=== PATIENT | female | born 1990 | race Caucasian/White ===

== ENCOUNTER 2017-10-03 12:09 | Emergency (ER) | payer BC ==
[2017-10-03 13:09] LABS: Absolute Lymphocytes (CBC) 1.9 K/uL (0.7-4.9); Absolute Monocytes 0.4 K/uL (0.1-1.3); Absolute Neutrophil 3.2 K/uL (1.8-8.0); Basophils % 1.1 % (0-1.3); Eosinophils % 2.3 % (0-4.4); Hematocrit 33.4 % (36.0-45.0); Lymphocytes % 34.4 % (15.3-44.8); MCH 33.3 pg (27.0-35.0); MCV 100.1 fL (80-100); MPV 8.2 fL (7.6-11.3); Monocytes % 6.4 % (3.3-12.3); RBC Red Blood Cell Count 3.34 M/uL (3.86-4.86)
[2017-10-03 13:32] LABS: ALT/SGPT 16 U/L (12-78); AST/SGOT 10 U/L (15-37); Albumin 3.5 g/dL (3.4-5.0); Alkaline Phosphatase 52 U/L (45-117); BUN Blood Urea Nitrogen 19 mg/dL (7-18); Bicarbonate 29 mmol/L (21-32); Bilirubin Direct < 0.1 mg/dL (0-0.2); Bilirubin Total 0.2 mg/dL (0.2-1.0); Glucose Level 83 mg/dL (74-106); Magnesium 2.1 mg/dL (1.8-2.4); Potassium 4.1 mmol/L (3.5-5.1); Protein, Total 6.7 g/dL (6.4-8.2); Sodium Level 140 mmol/L (136-145)
[2017-10-03 13:42] LABS: Urine Blood 2+ (NEG); Urine Glucose NEGATIVE (NEG); Urine Protein NEGATIVE (NEG); Urine pH 7.5 (5.0-7.0)
--- NOTE | 2017-10-03 14:19 | RAD REPORT ---
EXAM DESCRIPTION: Kathy Single View10/03/2017 1:07 pm CLINICAL HISTORY: Chest pain COMPARISON: March FINDINGS: The lungs appear clear of acute infiltrate. The heart is normal size IMPRESSION: No acute abnormalities displayed
--- NOTE | 2017-10-03 14:21 | EDPHYS ---
Physician Documentation [facility] Name: Leesa Stone Age: 27 yrs Sex: Female : 1990 Arrival Date: 10/03/2017 Time: 12:12 Bed 6 Private MD: Rojas Rivera T ED Physician Que Paredes HPI: 10/03 12:43 This 27 yrs old Female presents to ER via Wheelchair with complaints of Chest ps1 Pain, Numbness Of Arm. 12:43 The patient or guardian reports chest pain that is located primarily in the substernal ps1 area, anterior chest wall, left. The pain radiates to the left arm. Associated signs and symptoms: Pertinent negatives: diaphoresis, recent travel, shortness of breath. worse with food and drinking. Additionally worse with deep breaths and palpation. Hx of breast augmentation and cholecystectomy. 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 - Social history:: Smoking status: Patient/guardian denies using tobacco. - Ebola Screening: : Patient negative for fever greater than or equal to 101.5 degrees Fahrenheit, and additional compatible Ebola Virus Disease symptoms Patient denies exposure to infectious person Patient denies travel to an Ebola-affected area in the 21 days before illness onset No symptoms or risks identified at this time. ROS: 12:43 Constitutional: Negative for fever, chills, and weight loss, Eyes: Negative for injury, ps1 pain, redness, and discharge, Respiratory: Negative for shortness of breath, cough, wheezing, and pleuritic chest pain, Abdomen/GI: Negative for abdominal pain, nausea, vomiting, diarrhea, and constipation, MS/Extremity: Negative for injury and deformity, Skin: Negative for injury, rash, and discoloration, Neuro: Negative for headache, weakness, numbness, tingling, and seizure. 12:43 Cardiovascular: Positive for chest pain, with cough, with movement, of the left arm and chest. Exam: 12:43 Constitutional: This is a well developed, well nourished patient who is awake, alert, ps1 and in no acute distress. Head/Face: Normocephalic, atraumatic. Eyes: Pupils equal round and reactive to light, extra-ocular motions intact. Lids and lashes normal. Conjunctiva and sclera are non-icteric and not injected. Respiratory: Lungs have equal breath sounds bilaterally, clear to auscultation and percussion. No rales, rhonchi or wheezes noted. No increased work of breathing, no retractions or nasal flaring. Abdomen/GI: Soft, non-tender, with normal bowel sounds. No distension or tympany. No guarding or rebound. No evidence of tenderness throughout. Back: No spinal tenderness. No costovertebral tenderness. Full range of motion. Skin: Warm, dry with normal turgor. Normal color with no rashes, no lesions, and no evidence of cellulitis. MS/ Extremity: Pulses equal, no cyanosis. Neurovascular intact. Full, normal range of motion. Neuro: Awake and alert, GCS 15, oriented to person, place, time, and situation. Cranial nerves II-XII grossly intact. Sensory grossly intact. Psych: Awake, alert, with orientation to person, place and time. Behavior, mood, and affect are within normal limits. 12:43 Chest/axilla: Inspection: normal, Palpation: is normal, Axilla: are normal, Breasts: post surgical scar and implants. Vital Signs: 12:36 BP 102 / 61; Pulse 68; Resp 12; Temp 97.8; Pulse Ox 99% on R/A; Weight 54.43 kg; Height ch 5 ft. 1 in. (154.94 cm); Pain 7/10; 12:52 BP 96 / 54; Pulse 62; Resp 14; Pulse Ox 99% on R/A; Pain 7/10; ch 14:29 BP 96 / 52; Pulse 54; Resp 12; Temp 97.8; Pulse Ox 99% on R/A; Pain 5/10; ch 12:36 Body Mass Index 22.67 (54.43 kg, 154.94 cm) MDM: 13:05 Patient medically screened. ps1 14:22 Data reviewed: vital signs, nurses notes, lab test result(s), EKG, radiologic studies, ps1 and as a result, I will discharge patient, administer steroids, medrol, prescribe pain medication, anaprox. Counseling: I had a detailed discussion with the patient and/or guardian regarding: the historical points, exam findings, and any diagnostic results supporting the discharge/admit diagnosis, lab results, radiology results, the need for outpatient follow up, with PCP and cardiology referral if symptoms do not resolve. Special discussion: Based on the patient's history, exam, and Dx evaluation, there is no indication for emergent intervention or inpatient Tx. It is understood by the patient/guardian that if the Sx's persist or worsen they need to return immediately for re-evaluation. 10/03 12:53 Order name: CBC with Diff; Complete Time: 13:14 ps1 10/03 12:53 Order name: LFT's; Complete Time: 13:45 ps1 10/03 12:53 Order name: Magnesium; Complete Time: 13:45 ps1 10/03 12:53 Order name: Troponin (emerg Dept Use Only); Complete Time: 13:45 ps1 10/03 12:53 Order name: CMP; Complete Time: 13:45 ps1 10/03 12:53 Order name: Urine Test (obtain specimen); Complete Time: 13:05 ps1 10/03 12:53 Order name: XRAY Chest (1 view); Complete Time: 14:20 ps1 10/03 12:53 Order name: EKG; Complete Time: 12:53 ps1 10/03 12:53 Order name: Cardiac monitoring; Complete Time: 13:05 ps1 10/03 12:53 Order name: EKG - Nurse/Tech; Complete Time: 13:05 ps1 10/03 12:53 Order name: IV Saline Lock; Complete Time: 13:05 ps1 10/03 13:05 Order name: Urine Dipstick--Ancillary (enter results); Complete Time: 13:45 ag 10/03 13:05 Order name: Urine --Ancillary (enter results); Complete Time: 13:45 ag 10/03 12:53 Order name: Labs collected and sent; Complete Time: 13:05 ps1 10/03 12:53 Order name: O2 Per Protocol; Complete Time: 13:05 ps1 10/03 12:53 Order name: O2 Sat Monitoring; Complete Time: 13:05 ps1 10/03 12:53 Order name: Urine Dipstick-Ancillary (obtain specimen); Complete Time: 13:05 ps1 EC:22 Rate is 61 beats/min. Rhythm is regular. QRS [place] is Normal. TN interval is normal. QRS ps1 interval is normal. QT interval is normal. No Q waves. T waves are Normal. No ST changes noted. Clinical impression: Normal ECG. Interpreted by me. Administered Medications: No medications were administered Disposition: 10/03/17 14:21 Discharged to Home. Impression: Chest pain. - Condition is Stable. - Discharge Instructions: Costochondritis. - Prescriptions for Anaprox DS 550 mg Oral Tablet - take 1 tablet by ORAL route every 12 hours As needed; 20 tablet. Medrol (Valerio) 4 mg Oral Tablets, Dose Pack - take 1 tablet by ORAL route as directed - follow package instructions; 1 packet. - Medication Reconciliation Form, Thank You Letter, Antibiotic Education, Prescription Opioid Use form. - Follow up: Rojas Rivera MD; When: As needed; Reason: Recheck today's complaints, Continuance of care, Re-evaluation by your physician. Follow up: Emergency Department; When: As needed; Reason: Fever > 102 F, Trouble breathing, Worsening of condition. - Problem is new. - Symptoms have improved. Signatures: Dispatcher [employer] [facility] Imani Almendarez, RN RN Que Paredes MD MD ps1 Corrections: (The following items were deleted from the chart) 12:54 12:53 BASIC METABOLIC PANEL+C.LAB.BRZ ordered. [facility] 14:30 14:21 10/03/2017 14:21 Discharged to Home. Impression: Chest pain. Condition is Stable. ch Forms are Medication Reconciliation Form, Thank You Letter, Antibiotic Education, Prescription Opioid Use. Follow up: Rojas Rivera; When: As needed; Reason: Recheck today's complaints, Continuance of care, Re-evaluation by your physician. Follow up: Emergency Department; When: As needed; Reason: Fever > 102 F, Trouble breathing, Worsening of condition. Problem is new. Symptoms have improved. ps1
--- NOTE | 2017-10-03 14:21 | ER ---
Nurse's Notes [facility] Name: Leesa Stone Age: 27 yrs Sex: Female : 1990 Arrival Date: 10/03/2017 Time: 12:12 Bed 6 Private MD: Rojas Rivera T Diagnosis: Chest pain Presentation: 10/03 12:32 Presenting complaint: Patient states: chest pain started last night, today is radiating ch down L arm, into shoulder, numbness and tingling in L arm. states the pain feels like pressure around her heart, like a bubble, worse with eating and drinking. reports diarrhea x2 days. Transition of care: patient was not received from another setting of care. Onset of symptoms was October 02, 2017 at 20:00. Risk Assessment: Do you want to hurt yourself or someone else? Patient reports no desire to harm self or others. Initial Sepsis Screen: Does the patient meet any 2 criteria? No. Patient's initial sepsis screen is negative. Does the patient have a suspected source of infection? No. Patient's initial sepsis screen is negative. Care prior to arrival: None. 12:32 Method Of Arrival: Wheelchair 12:32 Acuity: JAVIER 3 ch Triage Assessment: 12:36 General: Appears in no apparent distress. comfortable, Behavior is calm, cooperative, ch appropriate for age. Pain: Complains of pain in left clavicle, anterior aspect of left upper chest, left lateral anterior chest, left breast, anterior aspect of left shoulder, left bicep, left antecubital area, dorsal aspect of left forearm and posterior aspect of left shoulder Pain currently is 7 out of 10 on a pain scale. Cardiovascular: Heart tones S1 S2 present Capillary refill < 3 seconds in bilateral fingers toes Clubbing of nail beds is absent Patient's skin is warm and dry. Pulses are all present. Edema is absent. Rhythm is sinus rhythm. Respiratory: Airway is patent Trachea midline Respiratory effort is even, unlabored, Respiratory pattern is regular, Breath sounds are clear bilaterally. Derm: Skin is intact, Skin is pink, warm \T\ dry. 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 - Social history:: Smoking status: Patient/guardian denies using tobacco. - Ebola Screening: : Patient negative for fever greater than or equal to 101.5 degrees Fahrenheit, and additional compatible Ebola Virus Disease symptoms Patient denies exposure to infectious person Patient denies travel to an Ebola-affected area in the 21 days before illness onset No symptoms or risks identified at this time. Screenin:39 Abuse screen: Denies threats or abuse. Denies injuries from another. Nutritional ch screening: No deficits noted. Tuberculosis screening: No symptoms or risk factors identified. Fall Risk None identified. Assessment: 12:39 Reassessment: Patient appears in no apparent distress at this time. Patient and/or ch family updated on plan of care and expected duration. Pain level reassessed. Patient is alert, oriented x 3, equal unlabored respirations, skin warm/dry/pink. 13:04 Pain: Pain radiates to left arm Pain began suddenly. ch 14:29 Reassessment: Patient appears in no apparent distress at this time. Patient and/or ch family updated on plan of care and expected duration. Pain level reassessed. Patient is alert, oriented x 3, equal unlabored respirations, skin warm/dry/pink. Patient states feeling better. Patient states symptoms have improved. Vital Signs: 12:36 BP 102 / 61; Pulse 68; Resp 12; Temp 97.8; Pulse Ox 99% on R/A; Weight 54.43 kg; Height 5 ft. 1 in. (154.94 cm); Pain 7/10; 12:52 BP 96 / 54; Pulse 62; Resp 14; Pulse Ox 99% on R/A; Pain 7/10; ch 14:29 BP 96 / 52; Pulse 54; Resp 12; Temp 97.8; Pulse Ox 99% on R/A; Pain 5/10; ch 12:36 Body Mass Index 22.67 (54.43 kg, 154.94 cm) ED Course: 12:12 Patient arrived in ED. mr 12:12 Rojas Rivera MD is Private Physician. mr 12:22 Imani Almendarez, RN is Primary Nurse. ch 12:32 EKG done, by costume technician. reviewed by Que Paredes MD. at1 12:34 Triage completed. ch 12:36 Arm band placed on left wrist. Patient placed in an exam room, on a stretcher, on site monitor, on pulse oximetry. 12:38 Que Paredes MD is Attending Physician. ps1 12:39 No apparent distress. Resting quietly. ch 12:39 human resources operations coordinator chest exam with physician. Patient maintains SpO2 saturation greater than 95% ch on room air. 12:39 Patient has correct armband on for positive identification. Placed in gown. Bed in low ch position. Call light in reach. Side rails up X 1. Adult w/ patient. personnel monitor on. Pulse ox on. NIBP on. Warm blanket given. 12:52 Inserted saline lock: 18 gauge in right antecubital area, using aseptic technique. ch Blood collected. 13:06 X-ray completed. Portable x-ray completed in exam room. jr1 13:07 XRAY Chest (1 view) In Process Unspecified. EDMS 14:20 Rojas Rivera MD is Referral Physician. ps1 14:29 IV discontinued, intact, bleeding controlled, No redness/swelling at site. Pressure ch dressing applied. Administered Medications: No medications were administered Outcome: 14:21 Discharge ordered by MD. ps1 14:29 Discharged to home ambulatory, with family. ch 14:29 Condition: improved 14:29 Discharge instructions given to patient, family, Instructed on discharge instructions, follow up and referral plans. no drinking with medication, medication usage, Demonstrated understanding of instructions, follow-up care, medications, Prescriptions given X 2. 14:30 Patient left the ED. Signatures: Dispatcher [employer] [facility] Imani Almendarez, LEVI RN Rosa Allen mr Bashir, Andreea jr1 Cris adam, sane rn EKG Tat1 Que Paredes MD MD ps1
--- NOTE | 2017-10-03 22:13 | EKG ---
Test Date: 2017-10-03 Test Time: 12:22:45 Machine Edge Bander: SUJATA MEASUREMENT RESULTS: Intervals: Rate: 61 OK: 144 QRSD: 86 QT: 380 QTc: 382 [place]: P: 34 OK: 144 QRS: 27 T: 47 INTERPRETIVE STATEMENTS: Normal sinus rhythm Normal ECG Compared to ECG 10/25/2016 15:02:54 No significant changes Electronically Signed On 10-03-17 22:12:57 CDT by Andriy Muñiz
== END 2017-10-03 14:30 | disposition home or self-care (01) ==
LOC: ER 12:09
DX: R07.9 Chest pain, unspecified (principal); F41.9 Anxiety disorder, unspecified; Z88.5 Allergy status to narcotic agent; Z98.82 Breast implant status
CPT/HCPCS: 36415; 71045; 80053; 80076; 81003; 81025; 83735; 84484; 85025; 93005; 99285

== ENCOUNTER 2018-12-21 11:52 | Emergency (ER) | payer BC ==
--- OUTSIDE RECORDS SUMMARY | 2018-12-21 12:07 | XMS REPORT | Clinical Summary ---
:1990 Author Organization [facility] Address [address] [place] [address] Care Team Providers Name Role Phone Asked, No Pcp Primary Care Provider Unavailable Allergies Active Allergy Reactions Severity Noted Date Comments Hydrocodone GI Intolerance 02/10/2018 Nausea/ vomiting Medications Medication Sig Dispensed Refills Start Date End Date Status dextroamphetamine-amph Take 20 mg by 0 Active etamine (ADDERALL) 20 mouth daily. mg tablet ALPRAZolam (XANAX) 1 TK 1 T PO TID 0 01/17/2018 Active MG tablet QUEtiapine (SEROquel) TK 1 T PO HS 1 12/12/2017 Active 300 MG tablet ondansetron ODT Take 1 tablet 10 tablet 0 02/10/2018 03/12/2018 (ZOFRAN ODT) 4 MG (4 mg total) by disintegrating tablet mouth every 6 (six) hours as needed for nausea or vomiting for up to 30 days. amoxicillin-pot Take 10 mL by 140 mL 0 02/10/2018 02/17/2018 clavulanate mouth 2 (two) (AUGMENTIN) 400-57 times a day for mg/5 mL suspension 7 days. acetaminophen-codeine Take 15 mL by 900 mL 0 02/10/2018 02/17/2018 (CAPITAL WITH CODEINE) mouth every 4 120-12 mg/5 mL (four) hours as suspension needed for moderate pain for up to 7 days. Active Problems Problem Noted Date Chronic tonsillitis 02/10/2018 Encounters Date Type Specialty Care Team Description 02/10/2018 Anesthesia Event Plastic Surgery Darinel Clay MD George, Danielle Therese, ZACHARY 02/10/2018 Surgery Plastic Surgery Brannon Monae MD TONSILLECTOMY 02/10/2018 Hospital Encounter Plastic Surgery Brannon Monae MD Chronic tonsillitis after 12/20/2017 Social History Tobacco Use Types Packs/Day Years Used Date Never Smoker Smokeless Tobacco: Never Used Alcohol Use Drinks/Week oz/Week Comments No Sex Assigned at Date Recorded Not on file Job Start Date Occupation Industry Not on file Not on file Not on file Travel History Travel Start Travel End No recent travel history available. 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 Pulse 58 02/10/2018 3:59 PM [employer]IMMING DEPARTMENT BLOCKER Temperature 36.6 C (97.8 F) 02/10/2018 3:59 PM [employer]IMMING DEPARTMENT BLOCKER Respiratory Rate 18 02/10/2018 3:59 PM [employer]IMMING DEPARTMENT BLOCKER Oxygen Saturation 98% 02/10/2018 3:59 PM TRIMMING DEPARTMENT BLOCKER Inhaled Oxygen Concentration - - Weight 57.6 kg (127 lb 1 oz) 02/10/2018 12:03 PM [employer]IMMING DEPARTMENT BLOCKER Height 154.9 cm (5' 1") 02/10/2018 12:03 PM TRIMMING DEPARTMENT BLOCKER Body Mass Index 24.01 02/10/2018 12:03 PM TRIMMING DEPARTMENT BLOCKER Plan of Treatment Not on file Procedures Procedure Name Priority Date/Time Associated Comments Diagnosis SURGICAL PATHOLOGY Routine 02/10/2018 3:27 Results for this REQUEST PM TRIMMING DEPARTMENT BLOCKER procedure are in the results section. MA AN ELECTIVE Routine 02/10/2018 1:38 ENDOTRACHEAL AIRWAY PM TRIMMING DEPARTMENT BLOCKER Procedure Note - Kamille Duarte, ZACHARY - 02/10/2018 1:38 PM TRIMMING DEPARTMENT BLOCKER Airway Date/Time: 02/10/2018 1:23 PM Performed by: KAMILLE DUARTE Authorized by: DARINEL CLAY Location: OR Urgency: Elective Difficult Airway: No Preoxygenated with 100% O2: Yes C-spine Precautions Maintained Throughout: No Mask Ventilation: Difficult mask Final Airway Type: Endotracheal airway Final Endotracheal Airway: ETT and reinforced tube Cuffed: Yes Technique Used: Direct laryngoscopy Devices/Methods Used in Placement: Intubating stylet Insertion Site: Oral Blade Type: Ewing Laryngoscope Blade/Videolaryngoscope Blade Size: 2 ETT Size (mm): 6.0 Cuff at minimum occlusion pressure: Yes Measured from: Teeth ETT to Teeth (cm): 20 Placement Verified by: CO2 detection and direct visualization Laryngoscopic view: Grade I - full view of glottis Rapid Sequence Induction (RSI): No Modified RSI: No Number of Attempts at Approach: 1 Lips and teeth unchanged, DL clear, suction ready, easy mask, easy grade 1 view TONSILLECTOMY 02/10/2018 1:13 PM TRIMMING DEPARTMENT BLOCKER Chronic tonsillitis after 12/20/2017 Results Surgical pathology request (02/10/2018 3:27 PM TRIMMING DEPARTMENT BLOCKER) [facility] DEPARTMENT OF PATHOLOGY AND GENOMIC MEDICINE Surgical pathology See link below [facility] DEPARTMENT OF report for PDF Lab PATHOLOGY AND Report GENOMIC MEDICINE Result status This is Final [facility] DEPARTMENT OF Report for PATHOLOGY AND [id number] GENOMIC MEDICINE Specimen Performing Organization Address City/State/[facility] DEPARTMENT OF PATHOLOGY AND [address] [place] [address] GENOMIC MEDICINE after 12/20/2017 ([place]) [place] [address] Advance Directives For more information, please contact: [phone] Type Date Recorded Patient Electronic Calibration Technician Explanation Advance Directives, Living Will and Medical Power of Dealer Sales Manager
--- OUTSIDE RECORDS SUMMARY | 2018-12-21 12:07 | XMS REPORT ---
:1990 [facility] Address [address] [place] [address] [address] Care Team Providers Name Role Phone DR JAIDEN LOMAX Unavailable Unavailable Problems This patient has no known problems. Allergies, Adverse Reactions, Alerts This patient has no known allergies or adverse reactions. Medications This patient has no known medications. Encounters Start End Encounter Admission Attending Care Care Encounter Date/Time Date/Time Type Type Clinicians Facility Department ID 2018-01-24 2018-01-24 Outpatient [facility] [id number] 00:00:00 00:00:00 JAIDEN
--- OUTSIDE RECORDS SUMMARY | 2018-12-21 12:07 | XMS REPORT ---
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
--- OUTSIDE RECORDS SUMMARY | 2018-12-21 12:07 | XMS REPORT ---
:1990 Author Organization [employer] Care Team Providers Name Role Phone Zev Mcdonough Provider Role Unavailable Allergies, Adverse Reactions, Alerts Substance Reaction Event Type codeine nausea and vomiting Drug Allergy Problems Problem Type Condition Code Onset Dates Condition Status Problem Localized swelling, mass and lump, R22.32 Active left upper limb Problem Pain in left elbow M25.522 Active Assessment Pain in left elbow M25.522 Active Assessment Localized swelling, mass and lump, R22.32 Active left upper limb Medications Medication Code Code Instructions Start End Date Status Dosage System Date Alprazolam [facility] 46360499525 1 MG Oral Active (Schedule IV Drug) Amphetamine-Dex [facility] 61028988870 20 MG Oral Active (Schedule troamphetamine II Drug) Quetiapine [facility] 52341131188 200 MG Oral Active not defined Fumarate Results No Known Results Summary Purpose [employer] Submission
--- OUTSIDE RECORDS SUMMARY | 2018-12-21 12:07 | XMS REPORT ---
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
--- NOTE | 2018-12-21 12:47 | RAD REPORT ---
EXAM DESCRIPTION: RAD - Chest Single View - 12/21/2018 12:39 pm CLINICAL HISTORY: Left-sided chest pain COMPARISON: October 2017 TECHNIQUE: AP portable chest image was obtained 1219 hours . FINDINGS: Lungs are clear. Heart and vasculature are normal. No measurable pleural effusion and no p neumothorax. No acute bony abnormality seen. No acute aortic findings suspected. IMPRESSION: No acute cardiopulmonary process.
[2018-12-21] MEDS ORDERED: FENTANYL CITR 100 MCG/2 ML ONE (13:10)
[2018-12-21] MEDS ORDERED: ONDANSETRON 4 MG/2 ML VIAL ONE (13:10)
[2018-12-21 13:15] LABS: Absolute Lymphocytes (CBC) 1.7 K/uL (0.7-4.9); Basophils % 1.2 % (0-1.3); Hematocrit 31.2 % (36.0-45.0); Lymphocytes % 32.5 % (15.3-44.8); MPV 7.8 fL (7.6-11.3); RBC Red Blood Cell Count 3.29 M/uL (3.86-4.86)
[2018-12-21 13:22] LABS: Protime INR 0.96
[2018-12-21 13:40] LABS: ALT/SGPT 15 U/L (12-78); AST/SGOT 13 U/L (15-37); Albumin 3.8 g/dL (3.4-5.0); Alkaline Phosphatase 44 U/L (45-117); BUN Blood Urea Nitrogen 13 mg/dL (7-18); Bicarbonate 26 mmol/L (21-32); Bilirubin Direct < 0.1 mg/dL (0-0.2); Bilirubin Total 0.2 mg/dL (0.2-1.0); Glucose Level 87 mg/dL (74-106); NT PRO-BNP 51 pg/mL (<125); Potassium 4.2 mmol/L (3.5-5.1); Protein, Total 7.3 g/dL (6.4-8.2); Sodium Level 142 mmol/L (136-145); Troponin (Emerg Dept Use Only) < 0.02 ng/mL (0.0-0.045)
[2018-12-21 13:44] LABS: Urine Blood 1+ (NEG); Urine Glucose NEGATIVE (NEG); Urine Protein NEGATIVE (NEG); Urine Specific Gravity 1.025 (1.005-1.030)
--- NOTE | 2018-12-21 13:57 | ER ---
Nurse's Notes [facility] Name: Leesa Stone Age: 28 yrs Sex: Female : 1990 Arrival Date: 12/21/2018 Time: 11:55 Bed 13 Private MD: Rojas Rivera T Diagnosis: Chest pain, unspecified Presentation: 12/21 12:06 Presenting complaint: Patient states: Left sided chest pain that radiates to the left aj1 arm for the past 30 minutes. States that when the episode started she suddenly felt sweaty and dizzy. Denies shortness of breath. Transition of care: patient was not received from another setting of care. Onset of symptoms was December 21, 2018. Risk Assessment: Do you want to hurt yourself or someone else? Patient reports no desire to harm self or others. Initial Sepsis Screen: Does the patient meet any 2 criteria? No. Patient's initial sepsis screen is negative. Does the patient have a suspected source of infection? No. Patient's initial sepsis screen is negative. Care prior to arrival: None. 12:06 Method Of Arrival: Ambulatory aj 12:06 Acuity: JAVIER 3 aj1 Triage Assessment: 12:09 General: Appears uncomfortable, Behavior is calm, cooperative, appropriate for age. aj1 Pain: Complains of pain in left breast Pain radiates to left arm Pain currently is 8 out of 10 on a pain scale. Cardiovascular: Reports chest pain. 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 - Social history:: Smoking status: Patient/guardian denies using tobacco. - Ebola Screening: : Patient denies travel to an Ebola-affected area in the 21 days before illness onset. Screenin:22 Abuse screen: Denies threats or abuse. Denies injuries from another. Nutritional aj1 screening: No deficits noted. Tuberculosis screening: No symptoms or risk factors identified. 14:42 Fall Risk None identified. aj1 Assessment: 12:22 General: Appears in no apparent distress. uncomfortable, Behavior is cooperative, aj1 anxious. Pain: Complains of pain in left breast Pain radiates to left arm Pain currently is 8 out of 10 on a pain scale. Pain began 30 min ago. Neuro: Level of Consciousness is awake, alert, obeys commands, Oriented to person, place, time, situation. Cardiovascular: Reports chest pain, diaphoresis, lightheadedness, Heart tones S1 S2 present. Cardiovascular: Rhythm is sinus rhythm. Respiratory: Airway is patent Respiratory effort is even, unlabored, Respiratory pattern is regular, symmetrical, Breath sounds are clear bilaterally. GI: No signs and/or symptoms were reported involving the gastrointestinal system. : No signs and/or symptoms were reported regarding the genitourinary system. EENT: No signs and/or symptoms were reported regarding the EENT system. Derm: Skin is pale. Musculoskeletal: No signs and/or symptoms reported regarding the musculoskeletal system. Circulation, motion, and sensation intact. 13:01 Reassessment: Patient appears in no apparent distress at this time. No changes from aj1 previously documented assessment. Patient and/or family updated on plan of care and expected duration. Pain level reassessed. Patient is alert, oriented x 3, equal unlabored respirations, skin warm/dry/pink. 14:00 Reassessment: Patient appears in no apparent distress at this time. No changes from aj1 previously documented assessment. Patient and/or family updated on plan of care and expected duration. Pain level reassessed. Patient is alert, oriented x 3, equal unlabored respirations, skin warm/dry/pink. Vital Signs: 12:09 BP 116 / 83; Pulse 87; Resp 18; Temp 97.8; Pulse Ox 100% on R/A; Weight 61.23 kg (R); aj1 Height 5 ft. 1 in. (154.94 cm) (R); Pain 8/10; 13:01 BP 118 / 66; Pulse 67; Resp 16; Pulse Ox 100% on R/A; aj1 14:00 BP 105 / 71; Pulse 64; Resp 18; Pulse Ox 99% on R/A; aj1 12:09 Body Mass Index 25.51 (61.23 kg, 154.94 cm) aj1 ED Course: 11:55 Patient arrived in ED. am2 11:55 Rojas Rivera MD is Private Physician. am2 11:58 Joe Solorzano [facility] jr8 11:58 Terrell Fowler MD is Attending Physician. jr8 12:07 Triage completed. aj1 12:09 Arm band placed on Patient placed in an exam room. aj1 12:22 Colleen Khan RN is Primary Nurse. aj1 12:22 Patient has correct armband on for positive identification. ekg monitor tech on. Pulse aj1 ox on. NIBP on. 12:22 No provider procedures requiring assistance completed. Patient maintains SpO2 aj1 saturation greater than 95% on room air. 12:40 EKG done, by technical director. reviewed by Joe OJEDA. at1 13:00 Inserted saline lock: 20 gauge in right antecubital area, using aseptic technique. aj1 13:03 Urine collected: clean catch specimen, cloudy. mb4 13:56 Rojas Rivera MD is Referral Physician. jr8 14:35 IV discontinued, intact, bleeding controlled, No redness/swelling at site. Pressure aj1 dressing applied. Administered Medications: 13:12 Drug: fentaNYL (PF) 25 mcg Route: IVP; Site: right antecubital; aj1 14:42 Follow up: Response: No adverse reaction; RASS: Alert and Calm (0) aj1 13:12 Drug: Zofran 4 mg Route: IVP; Site: right antecubital; aj1 14:43 Follow up: Response: No adverse reaction aj1 Outcome: 13:56 Discharge ordered by . jr8 14:42 Discharged to home ambulatory. aj1 14:42 Condition: good 14:42 Discharge instructions given to patient, Instructed on discharge instructions, follow up and referral plans. Demonstrated understanding of instructions, follow-up care. 14:43 Patient left the ED. aj1 Signatures: Colleen Khan RN RN aj1 Joe Solorzano PA PA jr8 Cris Menchaca, dough scaler and mixer EKG Tat1 Cris Angela am2 Sally Suarez mb4
--- NOTE | 2018-12-21 13:58 | EDPHYS ---
Physician Documentation [facility] Name: Leesa Stone Age: 28 yrs Sex: Female : 1990 Arrival Date: 12/21/2018 Time: 11:55 Bed 13 Private MD: Rojas Rivera T ED Physician Terrell Fowler HPI: 12/21 12:38 This 28 yrs old Female presents to ER via Ambulatory with complaints of Chest jr8 Pain > 30 y/o. 12:38 The patient or guardian reports chest pain that is located primarily in the Left jr8 breast/left lateral anterior chest area. The pain radiates to the left arm, the left shoulder. Associated signs and symptoms: Pertinent positives: diaphoresis, nausea, Pertinent negatives: lightheadedness, near syncope, palpitations, shortness of breath, syncope. The chest pain is described as dull. Duration: The patient or guardian reports a single episode, that is still ongoing, but improving. Modifying factors: The symptoms are alleviated by nothing. the symptoms are aggravated by palpation of area. Severity of pain: At its worst the pain was mild in the emergency department the pain has improved. The patient has not experienced similar symptoms in the past. Pt states she was sitting on the cough and got a pain in her chest along with some associated sweating. Reports a history of anxiety but states that this episode feels different. . 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 - Social history:: Smoking status: Patient/guardian denies using tobacco. - Ebola Screening: : Patient denies travel to an Ebola-affected area in the 21 days before illness onset. ROS: 12:38 Constitutional: Negative for fever, chills, and weight loss, Eyes: Negative for injury, jr8 pain, redness, and discharge, ENT: Negative for injury, pain, and discharge, Neck: Negative for injury, pain, and swelling, Respiratory: Negative for shortness of breath, cough, wheezing, and pleuritic chest pain, Abdomen/GI: Negative for abdominal pain, nausea, vomiting, diarrhea, and constipation, Back: Negative for injury and pain, MS/Extremity: Negative for injury and deformity, Skin: Negative for injury, rash, and discoloration, Neuro: Negative for headache, weakness, numbness, tingling, and seizure. 12:38 Cardiovascular: Positive for chest pain, of the chest and left breast, Negative for edema, orthopnea, palpitations, paroxysmal nocturnal dyspnea. Exam: 12:38 Constitutional: This is a well developed, well nourished patient who is awake, alert, jr8 and in no acute distress. Head/Face: Normocephalic, atraumatic. Eyes: Pupils equal round and reactive to light, extra-ocular motions intact. Lids and lashes normal. Conjunctiva and sclera are non-icteric and not injected. Cornea within normal limits. Periorbital areas with no swelling, redness, or edema. ENT: Nares patent. No nasal discharge, no septal abnormalities noted. Tympanic membranes are normal and external auditory canals are clear. Oropharynx with no redness, swelling, or masses, exudates, or evidence of obstruction, uvula midline. Mucous membranes moist. Neck: Trachea midline, no thyromegaly or masses palpated, and no cervical lymphadenopathy. Supple, full range of motion without nuchal rigidity, or vertebral point tenderness. No Meningismus. Chest/axilla: Normal chest wall appearance and motion. Nontender with no deformity. No lesions are appreciated. Cardiovascular: Regular rate and rhythm with a normal S1 and S2. No gallops, murmurs, or rubs. Normal PMI, no JVD. No pulse deficits. Respiratory: Lungs have equal breath sounds bilaterally, clear to auscultation and percussion. No rales, rhonchi or wheezes noted. No increased work of breathing, no retractions or nasal flaring. Abdomen/GI: Soft, non-tender, with normal bowel sounds. No distension or tympany. No guarding or rebound. No evidence of tenderness throughout. Skin: Warm, dry with normal turgor. Normal color with no rashes, no lesions, and no evidence of cellulitis. MS/ Extremity: Pulses equal, no cyanosis. Neurovascular intact. Full, normal range of motion. Neuro: Awake and alert, GCS 15, oriented to person, place, time, and situation. Cranial nerves II-XII grossly intact. Motor strength 5/5 in all extremities. Sensory grossly intact. Cerebellar exam normal. Normal gait. 12:38 Cardiovascular: Rate: normal, Pulses: Pulses are 3+ in right radial artery and left radial artery. Heart sounds: normal, normal S1and S2, Edema: is not appreciated, JVD: is not appreciated. 12:38 Neuro: appears anxious. Vital Signs: 12:09 BP 116 / 83; Pulse 87; Resp 18; Temp 97.8; Pulse Ox 100% on R/A; Weight 61.23 kg (R); aj1 Height 5 ft. 1 in. (154.94 cm) (R); Pain 8/10; 13:01 BP 118 / 66; Pulse 67; Resp 16; Pulse Ox 100% on R/A; aj1 14:00 BP 105 / 71; Pulse 64; Resp 18; Pulse Ox 99% on R/A; aj1 12:09 Body Mass Index 25.51 (61.23 kg, 154.94 cm) [facility] MDM: 11:58 Patient medically screened. 8 13:55 HEART Score: History: Moderately Suspicious (1), ECG: Normal (0), Age: < or = 45 years [facility] (0), Risk Factors: No Risk Factors Known (0), Troponin: < or = 1 x Normal Limit (0). Data reviewed: vital signs, nurses notes, lab test result(s), EKG, radiologic studies, plain films. Data interpreted: Pulse oximetry: on room air is 100 %. Interpretation: normal. Counseling: I had a detailed discussion with the patient and/or guardian regarding: the historical points, exam findings, and any diagnostic results supporting the discharge/admit diagnosis, lab results, radiology results, the need for outpatient follow up, a family practitioner, to return to the emergency department if symptoms worsen or persist or if there are any questions or concerns that arise at home. 12/21 12:05 Order name: Basic Metabolic Panel [facility] 12/21 12:05 Order name: CBC with Diff [facility] 12/21 12:05 Order name: LFT's [facility] 12/21 12:05 Order name: Magnesium [facility] 12/21 12:05 Order name: NT PRO-BNP [facility] 12/21 12:05 Order name: PT-INR [facility] 12/21 12:05 Order name: Troponin (emerg Dept Use Only) [facility] 12/21 13:04 Order name: Urine Dipstick--Ancillary (enter results) 12/21 13:04 Order name: Urine --Ancillary (enter results) 12/21 13:25 Order name: Protime (+INR); Complete Time: 13:27 EDMS 12/21 13:31 Order name: CBC with Automated Diff; Complete Time: 13:38 EDMA 12/21 13:43 Order name: Basic Metabolic Panel; Complete Time: 13:54 EDMA 12/21 13:43 Order name: Liver (Hepatic) Function; Complete Time: 13:54 EDMS 12/21 13:43 Order name: Troponin (Emerg Dept Use Only); Complete Time: 13:54 [facility] 12/21 12:05 Order name: XRAY Chest (1 view) [facility] 12/21 12:05 Order name: EKG; Complete Time: 12:08 [facility] 12/21 12:05 Order name: Cardiac monitoring; Complete Time: 12:25 [facility] 12/21 12:05 Order name: EKG - Nurse/Tech; Complete Time: 12:25 [facility] 12/21 12:05 Order name: IV Saline Lock; Complete Time: 13:12 [facility] 12/21 12:05 Order name: Labs collected and sent; Complete Time: 13:12 [facility] 12/21 12:05 Order name: O2 Per Protocol; Complete Time: 12:25 [facility] 12/21 12:05 Order name: O2 Sat Monitoring; Complete Time: 12:25 [facility] 12/21 12:05 Order name: Urine Test (obtain specimen); Complete Time: 12:58 [facility] 12/21 12:05 Order name: Urine Dipstick-Ancillary (obtain specimen); Complete Time: 12:58 [facility] 12/21 13:43 Order name: NT PRO-BNP; Complete Time: 13:54 EDMS 12/21 13:43 Order name: Magnesium; Complete Time: 13:54 [facility] 12/21 13:48 Order name: Urine --Ancillary; Complete Time: 13:54 EDMS 12/21 13:48 Order name: Urine Dipstick-Ancillary; Complete Time: 13:54 EDMS Administered Medications: 13:12 Drug: fentaNYL (PF) 25 mcg Route: IVP; Site: right antecubital; aj 14:42 Follow up: Response: No adverse reaction; RASS: Alert and Calm (0) [facility] 13:12 Drug: Zofran 4 mg Route: IVP; Site: right antecubital; aj 14:43 Follow up: Response: No adverse reaction aj1 Disposition: 12/22 07:57 Co-signature as Attending Physician, Terrell Fowler MD I agree with the assessment and kdr plan of care. Disposition: 12/21/18 13:56 Discharged to Home. Impression: Chest pain, unspecified. - Condition is Stable. - Discharge Instructions: Nonspecific Chest Pain, Chest Wall Pain. - Medication Reconciliation Form, Thank You Letter, Antibiotic Education, Prescription Opioid Use form. - Follow up: Rojas Rivera MD; When: 2 - 3 days; Reason: Recheck today's complaints, Continuance of care, Re-evaluation by your physician. - Problem is new. - Symptoms have improved. Signatures: Dispatcher [employer] EDMA Colleen Khan RN RN aj1 Terrell Fowler MD MD [facility] [address] Joe Solorzano PA PA jr8 Corrections: (The following items were deleted from the chart) 12/21 14:43 13:56 12/21/2018 13:56 Discharged to Home. Impression: Chest pain, unspecified. aj1 Condition is Stable. Forms are Medication Reconciliation Form, Thank You Letter, Antibiotic Education, Prescription Opioid Use. Follow up: Rojas Rivera; When: 2 - 3 days; Reason: Recheck today's complaints, Continuance of care, Re-evaluation by your physician. Problem is new. Symptoms have improved. jr8
[2018-12-21 16:20] VITALS: TEMP 97.8
[2018-12-21 16:24] VITALS: BP 105/71; O2SAT 99
--- NOTE | 2018-12-22 10:34 | EKG ---
Test Date: 2018-12-21 Test Time: 12:02:28 Classroom Paraprofessional: SUJATA MEASUREMENT RESULTS: Intervals: Rate: 86 RI: 140 QRSD: 84 QT: 358 QTc: 428 [place]: P: 60 RI: 140 QRS: 41 T: 73 INTERPRETIVE STATEMENTS: Normal sinus rhythm Normal ECG Compared to ECG 10/03/2017 12:22:45 No significant changes Electronically Signed On 12-22-18 10:31:48 CDT by Zane Watson
== END 2018-12-21 14:43 | disposition home or self-care (01) ==
LOC: ER 11:52
DX: R07.9 Chest pain, unspecified (principal); Z88.6 Allergy status to analgesic agent; F90.9 Attention-deficit hyperactivity disorder, unspecified type
CPT/HCPCS: 93005; 85025; 80048; 36415; 83735; 81025; 85610; 80076; 81003; 84484; 83880; 71045; 96375; 96374; 99285; J3010; J2405

== ENCOUNTER 2019-10-12 15:56 | Emergency (ER) | payer BC ==
--- OUTSIDE RECORDS SUMMARY | 2019-10-12 15:58 | XMS REPORT | Continuity of Care Document ---
:1990 Author Organization [facility] t Address [address] [place] [address] Care Team Providers Name Role Phone Asked, Pcp Primary Care Physician Unavailable DR DAMI Attending Clinician Unavailable DR DAMI Admitting Clinician Unavailable Problems Condition Condition Condition Status Onset Resolution Last Treating Co mments Source Name Details Category Date Date Treatment Clinician Date Chronic Chronic Disease Active 2017-04 Humphrey tonsilliti tonsilliti 04-12 Vt thodi s s 00:00: st 00 Localized Localized Diagnosis Active [facility] swelling, swelling, Luke s - mass and mass and Memori a lump, left lump, left l upper limb upper limb Ou tpati ent Clinics Pain in Pain in Diagnosis Active [facility] left elbow [facility] 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 non-drinker of alcohol (finding) Smoking Status Start Date Stop Date Source Never smoker Humphrey Methodis t Medications Ordered Filled Start Stop Current Ordering Indication Dosage Frequency Signature Comments Components Source Medication Medication Date Date Medication? Clinician (SIG) Name Name dextroamphe 2017-04 Yes 20mg QD Take 20 mg Gamez tamine-amph -09 by mouth Meth manuel etamine 16:35: daily. st (ADDERALL) 00 20 mg tablet ALPRAZolam 2017-04 Yes TK 1 T PO [place] (XANAX) 1 0-16 TID Methodi MG tablet 00:00: st 00 QUEtiapine Yes TK 1 T PO [place] (SEROquel) 9-10 HS Methodi 300 MG 00:00: st tablet 00 Alprazolam Alprazolam Yes Zev (Schedule [facility] Amphetamine Amphetamine Yes Zev (Schedule [facility] -Dextroamph -Dextroamph [facility] II Drug) [facility] - etamine etamine [facility] Quetiapine Quetiapine Yes Zev not [facility] Fumarate Fumarate [facility] defined Lucy kes - [facility] Procedures This patient has no known procedures. Encounters Start End Encounter Admission Attending Care Care Encounter Source Date/Time Date/Time Type Type Clinicians Facility Department ID 2018-01-24 2018-01-24 Outpatient Efren LOMAX [facility] [id number] [facility] 00:00:00 00:00:00 [facility] 2017-11-16 2017-11-16 Outpatient Irena Santoro [id number] [facility] 16:35:00 16:35:00 t [facility] Clinics 2017-11-15 2017-11-15 Outpatient Irena Santoro [id number] [facility] 08:30:00 08:30:00 t [facility] 2017-11-02 2017-11-02 Outpatient Irena Santoro [id number] 09:30:00 09:30:00 t [facility] Results This patient has no known results.
--- OUTSIDE RECORDS SUMMARY | 2019-10-12 15:58 | XMS REPORT | Clinical Summary ---
:1990 Author Organization [facility] Address [address] [place] [address] Care Team Providers Name Role Phone Asked, No Pcp Primary Care Provider Unavailable Allergies Active Allergy Reactions Severity Noted Date Comments Hydrocodone GI Intolerance 02/10/2018 Nausea/ vomit ing Medications Medication Sig Dispensed Refills Start Date End Date Status dextroamphetamine-amphe Take 20 mg by 0 Active tamine (ADDERALL) 20 mg mouth daily. tablet ALPRAZolam (XANAX) 1 MG TK 1 T PO TID 0 01/17/2018 Active tablet QUEtiapine (SEROquel) TK 1 T PO HS 1 12/12/2017 Active 300 MG tablet Active Problems Problem Noted Date Chronic tonsillitis 02/10/2018 Social History Tobacco Use Types Packs/Day Years Used Date Never Smoker Smokeless Tobacco: Never Used Alcohol Use Drinks/Week oz/Week Comments No Sex Assigned at Date Recorded Not on file Job Start Date Occupation Industry Not on file Not on file Not on file Travel History Travel Start Travel End No recent travel history available. 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
[2019-10-12] MEDS ORDERED: KETOROLAC 30 MG/ML INJ ONE (16:59)
[2019-10-12 17:19] LABS: Urine Blood 2+ (NEG); Urine Glucose NEGATIVE (NEG); Urine Protein NEGATIVE (NEG); Urine Specific Gravity 1.025 (1.005-1.030); Urine pH 6.5 (5.0-7.0)
--- NOTE | 2019-10-12 17:34 | RAD REPORT ---
EXAM DESCRIPTION: CT - Stone Protocol - 10/12/2019 5:03 pm CLINICAL HISTORY: Abdominal pain. COMPARISON: Pelvic ultrasound October 12, 2019 TECHNIQUE: Computed axial tomography of the abdomen pelvis was obtained without oral or IV contrast. Lack of IV and oral contrast limits evaluation of solid organs, bowel, and vessels. Coronal reformat tiffanie images were obtained and reviewed. All CT scans are performed using dose optimization technique as appropriate and may include automated exposure control or mA/KV adjustment according to patient size. FINDINGS: A renal calculus is not seen. An ureteral calculus is not noted. A bladder calculus is not present. Small left renal cyst The liver, spleen, pancreas and adrenals appear grossly normal There is no evidence of diverticulitis. The appendix appears normal 5.5 centimeter cystic mass is present within the posterior pelvis to the right of midline. No signifi cant free fluid Postsurgical changes involve the stomach IMPRESSION: Negative for a genitourinary calculus A 5.5 centimeter cystic mass within the posterior pelvis to the right of midline probably an ovarian cyst. A followup ultrasound in a couple months recommended for re-evaluation
--- NOTE | 2019-10-12 17:42 | EDPHYS ---
Physician Documentation [facility] Name: Leesa Stone Age: 29 yrs Sex: Female : 1990 Arrival Date: 10/12/2019 Time: 15:58 Bed 8 Private MD: Rojas Rivera T; Jameel Madera B ED Physician Terrell Fowler HPI: 10/11 16:41 This 29 yrs old Female presents to ER via Ambulatory with complaints of kb Vaginal Bleeding, Pelvic Pain. 16:41 The patient presents with vaginal bleeding that is moderate. Onset: The kb symptoms/episode began/occurred this morning. Modifying factors: The symptoms are alleviated by nothing, the symptoms are aggravated by nothing. Associated signs and symptoms: Pertinent positives: vaginal bleeding, Pertinent negatives: constipation, cramping, diarrhea, dyspareunia, dysuria, fever, hematuria, nausea, urinary frequency, vaginal bleeding, vaginal discharge. Severity of symptoms: At their worst the symptoms were moderate, in the emergency department the symptoms are unchanged. The patient has not experienced similar symptoms in the past. The patient has been recently seen by a physician:. 16:42 Pt reports she started having pelvic pain on Tuesday. Saw Dr madera and he felt a mass kb on exam so he ordered an US. Had US done today, but pain has increased and now she is having vaginal bleedings. 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 - Social history:: Smoking status: unknown. ROS: 16:38 Constitutional: Negative for fever, chills, and weight loss, Cardiovascular: Negative kb for chest pain, palpitations, and edema, Respiratory: Negative for shortness of breath, cough, wheezing, and pleuritic chest pain, Back: Negative for injury and pain, MS/Extremity: Negative for injury and deformity, Skin: Negative for injury, rash, and discoloration, Neuro: Negative for headache, weakness, numbness, tingling, and seizure. 16:38 Abdomen/GI: Positive for abdominal pain, Negative for nausea, vomiting, and diarrhea. 16:38 : Positive for vaginal bleeding. Exam: 16:40 Constitutional: This is a well developed, well nourished patient who is awake, alert, kb and in no acute distress. Head/Face: Normocephalic, atraumatic. Chest/axilla: Normal chest wall appearance and motion. Nontender with no deformity. No lesions are appreciated. Cardiovascular: Regular rate and rhythm with a normal S1 and S2. No gallops, murmurs, or rubs. Normal PMI, no JVD. No pulse deficits. Respiratory: Lungs have equal breath sounds bilaterally, clear to auscultation and percussion. No rales, rhonchi or wheezes noted. No increased work of breathing, no retractions or nasal flaring. Back: No spinal tenderness. No costovertebral tenderness. Full range of motion. Skin: Warm, dry with normal turgor. Normal color with no rashes, no lesions, and no evidence of cellulitis. MS/ Extremity: Pulses equal, no cyanosis. Neurovascular intact. Full, normal range of motion. Neuro: Awake and alert, GCS 15, oriented to person, place, time, and situation. Cranial nerves II-XII grossly intact. Motor strength 5/5 in all extremities. Sensory grossly intact. Cerebellar exam normal. Normal gait. 16:40 Abdomen/GI: Inspection: abdomen appears normal, Bowel sounds: normal, in all quadrants, Palpation: soft, in all quadrants, mild abdominal tenderness, in the right lower quadrant. Vital Signs: 16:02 BP 118 / 82; Pulse 81; Resp 24; Temp 97.7; Pulse Ox 98% ; Weight 69.85 kg; Height 5 ft. sv 1 in. (154.94 cm); 16:02 Body Mass Index 29.10 (69.85 kg, 154.94 cm) sv MDM: 16:08 Patient medically screened. kb 16:38 Data reviewed: vital signs, nurses notes. Data interpreted: Pulse oximetry: on room air kb is 98 %. Interpretation: normal. Counseling: I had a detailed discussion with the patient and/or guardian regarding: the historical points, exam findings, and any diagnostic results supporting the discharge/admit diagnosis, lab results, radiology results, the need for outpatient follow up, an OB/Gyne specialist, to return to the emergency department if symptoms worsen or persist or if there are any questions or concerns that arise at home. 10/11 16:50 Order name: Urine Dipstick--Ancillary (enter results); Complete Time: 17:20 eb 10/11 16:50 Order name: Urine --Ancillary (enter results); Complete Time: 17:20 eb 10/11 16:08 Order name: Urine Dipstick-Ancillary (obtain specimen); Complete Time: 16:42 kb 10/11 16:41 Order name: CT Stone Protocol; Complete Time: 17:38 kb Administered Medications: 16:52 Drug: TORadol 30 mg Route: IM; Site: right deltoid; em 17:50 Follow up: Response: No adverse reaction; Marked relief of symptoms; Pain is unchanged, em physician notified 17:52 Drug: traMADol 50 mg Route: PO; em 17:56 Follow up: Response: Medication administered at discharge. em Disposition: 10/12/19 17:42 Discharged to Home. Impression: Unspecified ovarian cysts. - Condition is Stable. - Discharge Instructions: Ovarian Cyst, [id number]. - Prescriptions for Diclofenac Sodium 75 mg Oral Tablet, Delayed Release (E.C.) - take 1 tablet by ORAL route 2 times per day As needed; 30 tablet. - Medication Reconciliation Form, Thank You Letter, Antibiotic Education, Prescription Opioid Use form. - Follow up: Emergency Department; When: As needed; Reason: Worsening of condition. Follow up: Jameel Madera MD; When: 2 - 3 days; Reason: Recheck today's complaints, Continuance of care, Re-evaluation by your physician. Addendum: 10/15/2019 16:25 Co-signature as Attending Physician, Terrell Fowler MD I agree with the assessment and k dr plan of care. Signatures: Dispatcher [employer] Clarita Wilkerson, R[facility]A [facility]-Regina Felder RN Terrell Daniels MD MD [facility] Xander Michelle RN RN em Abby Houston RN RN Corrections: (The following items were deleted from the chart) 10/11 18:00 17:42 10/12/2019 17:42 Discharged to Home. Impression: Unspecified ovarian cysts. em Condition is Stable. Forms are Medication Reconciliation Form, Thank You Letter, Antibiotic Education, Prescription Opioid Use. Follow up: Emergency Department; When: As needed; Reason: Worsening of condition. Follow up: Jameel Madera; When: 2 - 3 days; Reason: Recheck today's complaints, Continuance of care, Re-evaluation by your physician. kb
--- NOTE | 2019-10-12 17:42 | ER ---
Nurse's Notes [facility] Name: Leesa Stone Age: 29 yrs Sex: Female : 1990 Arrival Date: 10/12/2019 Time: 15:58 Bed 8 Private MD: Rojas Rivera T; Jameel Dos Santos B Diagnosis: Unspecified ovarian cysts Presentation: 10/11 15:59 Chief complaint: Patient states: went to Dr Dos Santos's office on Tue for pain, had an US sv done and she has a mass on her right ovary. Today had another US done and is now having vaginal bleeding and the pain has increased. Coronavirus screen: Proceed with normal triage. Patient denies a cough. Patient denies shortness of breath or difficulty breathing. Patient denies measured and/or subjective temperature greater than 100.4F prior to today's visit. Patient denies travel on a cruise ship or to a country the [facility] currently lists as an affected area. Patient denies contact with known and/or suspected case of COVID-19. Ebola Screen: No symptoms or risks identified at this time. Risk Assessment: Do you want to hurt yourself or someone else? Patient reports no desire to harm self or others. Onset of symptoms was October 10, 2019. 15:59 Method Of Arrival: Ambulatory sv 15:59 Acuity: JAVIER 3 sv 16:02 Initial Sepsis Screen: Does the patient meet any 2 criteria? No. Patient's initial sv sepsis screen is negative. Does the patient have a suspected source of infection? No. Patient's initial sepsis screen is negative. Triage Assessment: 15:59 General: Appears in no apparent distress. uncomfortable, Behavior is cooperative, sv appropriate for age, restless. Pain: Complains of pain in suprapubic area and right lower quadrant Pain began today Is continuous, Noted to be grimacing, guarding, restless, bent over. Neuro: Level of Consciousness is awake, alert, obeys commands, Oriented to person, place, time, situation, Gait is steady. Respiratory: Respiratory effort is even, unlabored. : Reports vaginal bleeding that is bright red. 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 - Social history:: Smoking status: unknown. Screenin:30 Abuse screen: Denies threats or abuse. Nutritional screening: No deficits noted. em Tuberculosis screening: No symptoms or risk factors identified. Fall Risk None identified. Assessment: 16:30 General: Appears in no apparent distress. uncomfortable, Behavior is calm, cooperative, em appropriate for age, Denies fever. Pain: Complains of pain in right lower quadrant Pain currently is 8 out of 10 on a pain scale. Pain began " this morning". Neuro: Level of Consciousness is awake, alert, obeys commands, Oriented to person, place, time, situation, Appropriate for age. Cardiovascular: Capillary refill < 3 seconds Patient's skin is warm and dry. Respiratory: Airway is patent Respiratory effort is even, unlabored, Respiratory pattern is regular, symmetrical, Denies cough, shortness of breath. GI: Abdomen is flat, Patient currently denies nausea, vomiting. : Reports vaginal bleeding that is bright red, Denies burning with urination. Derm: Skin is intact, is healthy with good turgor, Skin is pink, warm \\T\\ dry. Musculoskeletal: Capillary refill < 3 seconds, Range of motion: intact in all extremities. Vital Signs: 16:02 BP 118 / 82; Pulse 81; Resp 24; Temp 97.7; Pulse Ox 98% ; Weight 69.85 kg; Height 5 ft. sv 1 in. (154.94 cm); 16:02 Body Mass Index 29.10 (69.85 kg, 154.94 cm) sv ED Course: 15:58 Patient arrived in ED. as 15:58 Jameel Dos Santos MD is Private Physician. as 15:58 Rojas Rivera MD is Private Physician. as 15:59 Arm band placed on. sv 16:01 Triage completed. sv 16:08 Clarita Carroll FNP-C is [facility]. kb 16:08 Terrell Fowler MD is Attending Physician. kb 16:14 Abby Houston, RN is Primary Nurse. iw 16:30 Patient has correct armband on for positive identification. Placed in gown. Bed in low em position. Call light in reach. 17:03 CT Stone Protocol In Process Unspecified. EDMS 17:41 Jmaeel Dos Santos MD is Referral Physician. kb 17:54 No provider procedures requiring assistance completed. Patient did not have IV access em during this emergency room visit. Administered Medications: 16:52 Drug: TORadol 30 mg Route: IM; Site: right deltoid; em 17:50 Follow up: Response: No adverse reaction; Marked relief of symptoms; Pain is unchanged, em physician notified 17:52 Drug: traMADol 50 mg Route: PO; em 17:56 Follow up: Response: Medication administered at discharge. em Outcome: 17:42 Discharge ordered by MD. kb 17:55 Discharged to home ambulatory. em 17:55 Condition: good 17:55 Discharge instructions given to patient, Instructed on discharge instructions, follow up and referral plans. medication usage, Demonstrated understanding of instructions, follow-up care, medications, Prescriptions given X 1. 18:00 Patient left the ED. em Signatures: Dispatcher [employer] EDMA Clarita Carroll, STUDENT DEVELOPMENT COORDINATOR-C STUDENT DEVELOPMENT COORDINATOR-Regina Felder, LEVI RN Xander Espinosa, RN RN Mikaela Patel Irene, RN RN iw
[2019-10-12] MEDS ORDERED: TRAMADOL HCL 50 MG TAB ONE (17:59)
[2019-10-12 18:42] VITALS: BP 118/82; TEMP 97.7; O2SAT 98
== END 2019-10-12 18:00 | disposition home or self-care (01) ==
LOC: ER 15:56
DX: N83.201 Unspecified ovarian cyst, right side (principal)
CPT/HCPCS: 74176; 76377; 81003; 81025; 96372; 99283

== ENCOUNTER 2019-10-15 11:14 | Emergency (ER) | payer BC ==
[2019-10-15 13:27] LABS: Urine Blood TRACE (NEG); Urine Glucose NEGATIVE (NEG); Urine Protein NEGATIVE (NEG); Urine pH 7.5 (5.0-7.0)
[2019-10-15] MEDS ORDERED: MORPHINE 2 MG/ML SYR ONE (13:28)
[2019-10-15] MEDS ORDERED: NA CHLORIDE 0.9% 1,000 ML ONE (13:28)
[2019-10-15 13:29] LABS: Absolute Lymphocytes (CBC) 2.2 K/uL (0.7-4.9); Basophils % 1.2 % (0-1.3); Hematocrit 31.4 % (36.0-45.0); Lymphocytes % 36.3 % (15.3-44.8); MPV 8.3 fL (7.6-11.3)
[2019-10-15 13:44] LABS: ALT/SGPT 16 U/L (12-78); AST/SGOT 13 U/L (15-37); Albumin 3.7 g/dL (3.4-5.0); Alkaline Phosphatase 42 U/L (45-117); BUN Blood Urea Nitrogen 14 mg/dL (7-18); Bicarbonate 26 mmol/L (21-32); Bilirubin Direct < 0.1 mg/dL (0-0.2); Bilirubin Total 0.2 mg/dL (0.2-1.0); Glucose Level 85 mg/dL (74-106); Lipase 248 U/L (73-393); Potassium 3.8 mmol/L (3.5-5.1); Protein, Total 7.3 g/dL (6.4-8.2); Sodium Level 141 mmol/L (136-145)
--- OUTSIDE RECORDS SUMMARY | 2019-10-15 13:57 | XMS REPORT | Continuity of Care Document ---
:1990 Author Organization [facility] t Address [address] [place] [address] Care Team Providers Name Role Phone Asked, Pcp Primary Care Physician Unavailable DR DAMI Attending Clinician Unavailable DR DAMI Admitting Clinician Unavailable Problems Condition Condition Condition Status Onset Resolution Last Treating Co mments Source Name Details Category Date Date Treatment Clinician Date Chronic Chronic Disease Active 2017-04 [place] tonsilliti tonsilliti 04-12 Ar thodi s s 00:00: st 00 Localized [...] Date Quantity Comments Source Sex Assigned At [facility] ethodist Alcohol intake 2018-02-13 2018[facility]02[facility] non-drinker of alcohol (finding) Smoking Status Start Date Stop Date Source Never smoker [place] Methodis t Medications Ordered Filled Start Stop [...] [facility] IV [facility]) [facility] Amphetamine Amphetamine Yes Zev (Schedule [facility] -Dext[facility]amph -Dextroamph [facility] II Drug) [facility] etamine [facility]amine [facility] Quetiapine Quetiapine Yes Zev not C [facility] Fumarate Fumarate [facility] defined Lucy kes - [facility] Procedures This patient has no known procedures. Encounters Start End Encounter Admission Attending Care Care Encounter Source Date/Time Date/Time Type Type Clinicians Facility Department ID 2018-01-24 2018-01-24 Outpatient Efren LOMAX [facility] [id number] [facility] 00:00:00 00:00:00 [facility] 2017-11-16 2017-11-16 Outpatient Irena Santoro [id number] [facility] [address] 16:35:00 16:35:00 [facility] ent Clinics 2017-11-15 2017-11-15 Outpatient Irena Santoro [id number] [facility] [address] 08:30:00 08:30:00 t [facility] ent [facility] 2017-11-02 2017-11-02 Outpatient Irena Santoro [id number] [facility] [address] 09:30:00 09:30:00 t [facility] ent [facility] Results This patient has no known results.
--- OUTSIDE RECORDS SUMMARY | 2019-10-15 13:57 | XMS REPORT | Clinical Summary ---
:1990 Author Organization [facility] Address [address] [place] [address] Care Team Providers Name Role Phone Asked, [...] Not on file Results Not on fileafter 10/14/2018 Advance Directives For more information, please contact: [phone] Type Date Recorded Patient Analytics Manager Explanati on Advance Directives, Living Will and Medical Power of Box Office Agent
--- NOTE | 2019-10-15 13:58 | RAD REPORT ---
EXAM DESCRIPTION: US - Transvaginal Study Probe - 10/15/2019 1:48 pm CLINICAL HISTORY: right lower abdomen pain Pelvic pain. COMPARISON: Transvaginal Study Probe dated 10/12/2019 FINDINGS: The uterus is normal in size, shape and echotexture. The uterus measures 8.8 x 5.2 x 3.7 c m. The endometrial stripe is thin, normal in size. The right ovary is mildly enlarged. The left ovary appears normal sized. The right ovary measures 5.7 x 5.7 cm. The left ovary measures 2.5 x 2.1 cm. 5 cm right ovarian cyst is unchanged since comparat oliver study. No adnexal masses. Normal Doppler blood flow was demonstrated to both ovaries. No significant pelvic ascites. IMPRESSION: No evidence of ovarian torsion.Stable benign appearing 5 cm right ovarian cyst.
[2019-10-15] MEDS ORDERED: FENTANYL CITR 100 MCG/2 ML ONE ×2 (14:41→15:36)
--- NOTE | 2019-10-15 15:14 | EDPHYS ---
Physician Documentation [facility] Name: Leesa Stone Age: 29 yrs Sex: Female : 1990 Arrival Date: 10/15/2019 Time: 11:18 Bed 28 Private MD: Rojas Rivera T ED Physician Yuri Matthew HPI: 10/14 13:00 This 29 yrs old Female presents to ER via Ambulatory with complaints of cp Abdominal Pain. 13:00 The patient presents with abdominal pain right lower quadrant. cp 13:00 The symptoms do not radiate. Associated signs and symptoms: Pertinent positives: cp vaginal bleeding, Pertinent negatives: anorexia, constipation, diarrhea, dysuria, fever, vomiting. 13:00 Onset: The symptoms/episode began/occurred last week. cp 13:00 The patient has been recently seen by a physician: Dr. Dos Santos with similar presenting cp complaints, an ultrasound was done, The patient has been recently seen at the [facility] Emergency Department, last week, for similar complaints labs were performed, CT scan was performed, was given a prescription for pain medications. Historical: - Allergies: 11:58 HYDROCODONE; ll1 - PMHx: 11:58 ADD/ADHD; Anxiety; insomnia; ll1 - PSHx: 11:58 ; Cholecystectomy; tummy tuck; breast augmentation; ll1 - Immunization history:: Adult Immunizations up to date. - Social history:: Smoking status: Patient denies any tobacco usage or history of. Patient/guardian denies using alcohol, street drugs, tobacco products. ROS: 13:05 Constitutional: Negative for body aches, chills, fever, poor PO intake. cp 13:05 Cardiovascular: Negative for chest pain, palpitations. cp 13:05 Respiratory: Negative for cough, shortness of breath, wheezing. 13:05 Abdomen/GI: Positive for abdominal pain, Negative for vomiting, diarrhea, constipation. 13:05 Back: Negative for radiated pain. 13:05 : Positive for vaginal bleeding, Negative for urinary symptoms, flank pain. 13:05 Neuro: Negative for altered mental status, headache, syncope, weakness. 13:05 All other systems are negative. Exam: 13:15 Constitutional: The patient appears in no acute distress, alert, awake, non-toxic, well cp developed, well nourished, uncomfortable. 13:15 Head/Face: Normocephalic, atraumatic. cp 13:15 Eyes: Periorbital structures: appear normal, Conjunctiva: normal, no exudate, no injection, Sclera: no appreciated abnormality, Lids and lashes: appear normal, bilaterally. 13:15 ENT: External ear(s): are unremarkable, Nose: is normal, Mouth: Lips: moist, Oral mucosa: pink and intact, moist, Posterior pharynx: is normal, airway is patent. 13:15 Chest/axilla: Inspection: normal, Palpation: is normal, no crepitus, no tenderness. 13:15 Cardiovascular: Rate: normal, Rhythm: regular. 13:15 Respiratory: the patient does not display signs of respiratory distress, Respirations: normal, no use of accessory muscles, no retractions, labored breathing, is not present, Breath sounds: are clear throughout, no decreased breath sounds, no stridor, no wheezing. 13:15 Abdomen/GI: Inspection: abdomen appears normal, Bowel sounds: active, all quadrants, Palpation: soft, in all quadrants, moderate abdominal tenderness, in the right lower quadrant, rebound tenderness, is not appreciated, voluntary guarding, is not appreciated, involuntary guarding, is not appreciated. 13:15 Back: pain, is absent, ROM is normal. Vital Signs: 11:56 BP 110 / 67; Pulse 73; Resp 17; Temp 97.3; Pulse Ox 99% ; Pain 10/10; ll1 13:30 BP 106 / 70; Pulse 62; Resp 20; Pulse Ox 100% ; sv 14:35 BP 106 / 72; Pulse 58; Resp 20; Pulse Ox 98% ; sv 15:35 BP 115 / 65; Pulse 60; Resp 18; Pulse Ox 99% ; sv MDM: 12:51 Patient medically screened. cp 14:00 Differential diagnosis: appendicitis, Ectopic , Endometriosis, Ovarian cp Torsion, Pelvic Inflammatory Disease, Pyelonephritis, Tubal Ovarian Abcess, Ureterolithiasis, urinary tract infection. 15:07 Physician consultation: Jameel Dos Santos MD was called at 15:05, was contacted at 15:05, cp regarding consult, patient's condition, and will see patient in office, tomorrow. 15:10 Data reviewed: vital signs, nurses notes, old medical records, labs and radiology cp reports from previous visit lab test result(s), radiologic studies, ultrasound. 15:12 Counseling: I had a detailed discussion with the patient and/or guardian regarding: the cp historical points, exam findings, and any diagnostic results supporting the discharge/admit diagnosis, lab results, radiology results, the need for outpatient follow up, for definitive care, an OB/Gyne specialist, to return to the emergency department if symptoms worsen or persist or if there are any questions or concerns that arise at home. 15:12 Response to treatment: the patient's symptoms have markedly improved after treatment, and as a result, I will discharge patient. ED course: VSS. Pain improved. Reviewed results of CT performed 10-12-2019 that showed negative appendicitis. US today negative for ovarian torsion. Will discharge to home for continued monitoring. 10/14 12:54 Order name: Basic Metabolic Panel; Complete Time: 14:04 10/14 14:04 Interpretation: Normal except: CL 111. 10/14 12:54 Order name: CBC with Diff; Complete Time: 14:04 10/14 14:04 Interpretation: Normal except: RBC 3.30; HGB 10.4; HCT 31.4; RDW 16.9. 10/14 12:54 Order name: Hepatic Function; Complete Time: 14:04 10/14 14:04 Interpretation: Normal except: AST 13; ALK 42; GLOB 3.6; A/G 1.0. 10/14 12:54 Order name: Lipase; Complete Time: 14:04 10/14 13:02 Order name: Urine Dipstick--Ancillary (enter results); Complete Time: 14:04 [facility] 10/14 14:07 Interpretation: Normal except: UBLD TRACE; UPH 7.5. 10/14 13:02 Order name: Urine --Ancillary (enter results); Complete Time: 14:04 [facility] 10/14 12:54 Order name: IV Saline Lock; Complete Time: 13:11 10/14 12:54 Order name: Labs collected and sent; Complete Time: 13:11 10/14 13:12 Order name: US Transvaginal Study (Probe); Complete Time: 14:04 10/14 14:05 Interpretation: Reviewed report. 10/14 12:54 Order name: Urine Dipstick-Ancillary (obtain specimen); Complete Time: 12:59 cp 10/14 12:54 Order name: Urine Test (obtain specimen); Complete Time: 12:59 cp Administered Medications: 13:25 Drug: NS 0.9% 1000 ml Route: IV; Rate: 1 bolus; Site: right antecubital; sv 14:40 Follow up: Response: No adverse reaction; IV Status: Completed infusion; IV Intake: sv 1000ml 13:25 Drug: morphine 2 mg {Note: rass2.} Route: IVP; Site: right antecubital; sv 14:40 Follow up: Response: No adverse reaction sv 14:40 Drug: fentaNYL (PF) 25 mcg Route: IVP; Site: right antecubital; sv 15:40 Follow up: Response: No adverse reaction; No change in condition sv 15:38 Drug: TORadol - Ketorolac 15 mg Route: IVP; Site: right antecubital; sv 15:54 Follow up: Response: No adverse reaction sv 15:40 Drug: fentaNYL (PF) 25 mcg {Note: rass2.} Route: IVP; Site: right antecubital; sv 15:54 Follow up: Response: No adverse reaction; RASS: Restless (+1) sv Point of Care Testing: Urine : 12:59 hCG Reading: Negative; Control Reading: Positive; jp3 Disposition: 16:00 Chart complete. cp 16:20 Co-signature as Attending Physician, Yuri Matthew MD I agree with the assessment and amaury plan of care. Disposition: 10/15/19 15:13 Discharged to Home. Impression: Other ovarian cysts - right. - Condition is Stable. - Discharge Instructions: Ovarian Cyst. - Prescriptions for Naprosyn 500 mg Oral Tablet - take 1 tablet by ORAL route 2 times per day take with food; 30 tablet. Tylenol- Codeine #3 300-30 mg Oral Tablet - take 2 tablets by ORAL route every 6 hours As needed; 20 tablet. - Medication Reconciliation Form, Thank You Letter, Antibiotic Education, Prescription Opioid Use form. - Follow up: Jameel Dos Santos MD; When: Tomorrow; Reason: Recheck today's complaints. - Problem is an ongoing problem. - Symptoms have improved. Signatures: Dispatcher [employer] Regina Jimenez RN RN sv Anderson, Corey, MD MD cha Page, Corey, PA PA cp Lewis Lynsay, RN RN ll1 Corrections: (The following items were deleted from the chart) 15:55 15:13 10/15/2019 15:13 Discharged to Home. Impression: Other ovarian cysts - right. sv Condition is Stable. Forms are Medication Reconciliation Form, Thank You Letter, Antibiotic Education, Prescription Opioid Use. Follow up: Jameel Dos Santos; When: Tomorrow; Reason: Recheck today's complaints. Problem is an ongoing problem. Symptoms have improved. cp
--- NOTE | 2019-10-15 15:14 | ER ---
Nurse's Notes [facility] Name: Leesa Stone Age: 29 yrs Sex: Female : 1990 Arrival Date: 10/15/2019 Time: 11:18 Bed 28 Private MD: Rojas Rivera T Diagnosis: Other ovarian cysts-right Presentation: 10/14 11:56 Chief complaint: Patient states: Lower abd pain continues since visit here last ll1 Tuesday. Saw Dr. Dos Santos today, started having worse pain after visit. Coronavirus screen: Proceed with normal triage. Patient denies a cough. Patient denies shortness of breath or difficulty breathing. Patient denies measured and/or subjective temperature greater than 100.4F prior to today's visit. Patient denies travel on a cruise ship or to a country the [facility] [place] currently [place] as an affected area. Patient denies contact with known and/or suspected case of COVID-19. Ebola Screen: Patient denies travel to an Ebola-affected area in the 21 days before illness onset. Initial Sepsis Screen: Does the patient meet any 2 criteria? No. Patient's initial sepsis screen is negative. Risk Assessment: Do you want to hurt yourself or someone else? Patient reports no desire to harm self or others. Onset of symptoms was October 17, 2019. 11:56 Method Of Arrival: Ambulatory ll1 11:56 Acuity: JAVIER 3 ll1 13:00 Initial Sepsis Screen: Does the patient have a suspected source of infection? No. sv Patient's initial sepsis screen is negative. Historical: - Allergies: 11:58 HYDROCODONE; ll1 - PMHx: 11:58 ADD/ADHD; Anxiety; insomnia; ll1 - PSHx: 11:58 ; Cholecystectomy; tummy tuck; breast augmentation; ll1 - Immunization history:: Adult Immunizations up to date. - Social history:: Smoking status: Patient denies any tobacco usage or history of. Patient/guardian denies using alcohol, street drugs, tobacco products. Screenin:00 Abuse screen: Denies threats or abuse. Denies injuries from another. Nutritional sv screening: No deficits noted. Tuberculosis screening: No symptoms or risk factors identified. Fall Risk None identified. Assessment: 13:20 General: Appears in no apparent distress. uncomfortable, well developed, Behavior is sv cooperative, appropriate for age, restless. Pain: Complains of pain in suprapubic area, right lower quadrant and left lower quadrant Pain currently is 10 out of 10 on a pain scale. Noted to be grimacing, guarding, moaning, Pt reports that the pain never got better when she left here. Reports that today after Dr Dos Santos did a manual examination on her that her pain intensified and the office told her to come to the ER to be evaluated. Neuro: Level of Consciousness is awake, alert, obeys commands, Oriented to person, place, time, situation, Moves all extremities. Full function Gait is steady. Respiratory: Respiratory effort is even, unlabored, Respiratory pattern is regular, symmetrical. GI: Abdomen is flat. Derm: Skin is pink, warm \T\ dry. 13:25 Reassessment: US at the bedside. sv 14:40 Reassessment: Patient appears in no apparent distress at this time. No changes from sv previously documented assessment. Patient and/or family updated on plan of care and expected duration. Pain level reassessed. Patient is alert, oriented x 3, equal unlabored respirations, skin warm/dry/pink. 15:49 Reassessment: Patient appears in no apparent distress at this time. No changes from sv previously documented assessment. Patient and/or family updated on plan of care and expected duration. Pain level reassessed. Patient is alert, oriented x 3, equal unlabored respirations, skin warm/dry/pink. Vital Signs: 11:56 BP 110 / 67; Pulse 73; Resp 17; Temp 97.3; Pulse Ox 99% ; Pain 10/10; ll1 13:30 BP 106 / 70; Pulse 62; Resp 20; Pulse Ox 100% ; sv 14:35 BP 106 / 72; Pulse 58; Resp 20; Pulse Ox 98% ; sv 15:35 BP 115 / 65; Pulse 60; Resp 18; Pulse Ox 99% ; sv ED Course: 11:18 Patient arrived in ED. mr 11:19 Rojas Rivera MD is Private Physician. mr 11:57 Triage completed. ll1 11:58 Arm band placed on Patient notified of wait time. ll1 12:43 Yuri Forrester PA is PHCP. cp 12:43 Yuri Matthew MD is Attending Physician. cp 12:46 Doc, Regina, RN is Primary Nurse. sv 12:59 Placed in gown. Bed in low position. Call light in reach. Side rails up X 1. Warm jp3 blanket given. Verbal reassurance given. Pulse ox on. NIBP on. 12:59 Urine collected: clean catch specimen, clear, татьяна colored. jp3 13:10 Initial lab(s) drawn, by me, sent to lab. Inserted saline lock: 20 gauge in right jp3 antecubital area, using aseptic technique. Blood collected. Patient maintains SpO2 saturation greater than 95% on room air. 13:13 Nurse Practitioner and/or Physician Sales Floor Manager to see patient. sv 13:49 US Transvaginal Study (Probe) In Process Unspecified. EDMS 15:12 Jameel Dos Santos MD is Referral Physician. cp 15:49 No provider procedures requiring assistance completed. IV discontinued, intact, sv bleeding controlled, No redness/swelling at site. Pressure dressing applied. Administered Medications: 13:25 Drug: NS 0.9% 1000 ml Route: IV; Rate: 1 bolus; Site: right antecubital; sv 14:40 Follow up: Response: No adverse reaction; IV Status: Completed infusion; IV Intake: sv 1000ml 13:25 Drug: morphine 2 mg {Note: rass2.} Route: IVP; Site: right antecubital; sv 14:40 Follow up: Response: No adverse reaction sv 14:40 Drug: fentaNYL (PF) 25 mcg Route: IVP; Site: right antecubital; sv 15:40 Follow up: Response: No adverse reaction; No change in condition sv 15:38 Drug: TORadol - Ketorolac 15 mg Route: IVP; Site: right antecubital; sv 15:54 Follow up: Response: No adverse reaction sv 15:40 Drug: fentaNYL (PF) 25 mcg {Note: rass2.} Route: IVP; Site: right antecubital; sv 15:54 Follow up: Response: No adverse reaction; RASS: Restless (+1) sv Point of Care Testing: Urine : 12:59 hCG Reading: Negative; Control Reading: Positive; jp3 Intake: 14:40 IV: 1000ml; Total: 1000ml. sv Outcome: 15:13 Discharge ordered by . cp 15:49 Discharged to home ambulatory, with family. sv 15:49 Condition: stable 15:49 Discharge instructions given to patient, Instructed on discharge instructions, follow up and referral plans. no drinking with medication, no driving heavy equipment, medication usage, Demonstrated understanding of instructions, follow-up care, medications, Prescriptions given X 2. 15:55 Patient left the ED. sv Signatures: Dispatcher [employer] Regina Jimenez, LEVI RN sv Dorothy Fontanez mr Mitzy, Yuri, Tab Marshall cp, jp3 Sergio Crandall RN RN ll1
[2019-10-15] MEDS ORDERED: KETOROLAC 30 MG/ML INJ ONE (15:36)
[2019-10-15 16:47] VITALS: TEMP 97.3
[2019-10-15 16:51] VITALS: BP 115/65; O2SAT 99
== END 2019-10-15 15:55 | disposition home or self-care (01) ==
LOC: ER 11:14
DX: N83.201 Unspecified ovarian cyst, right side (principal); Z88.6 Allergy status to analgesic agent
CPT/HCPCS: 96361; 85025; 80048; 36415; 81025; 80076; 81003; 83690; 76830; 96375; 96374; 99284; J3010 ×2; J2270; J7030

== ENCOUNTER 2019-10-18 06:20 | Day surgery (SDC) | payer BC ==
[2019-10-17 16:34] LABS: Urine Appearance CLEAR; Urine Bilirubin NEGATIVE (NEG); Urine Blood NEGATIVE (NEG); Urine Color YELLOW; Urine Glucose NEGATIVE (NEG); Urine Protein NEGATIVE (NEG); Urine Specific Gravity 1.015 (1.005-1.030); Urine Urobilinogen 0.2 mg/dL (0.2-1.0)
[2019-10-17 16:35] LABS: Specific Gravity 1.015 (1.005-1.030); Urine Microscopic Reflex NO UMIC
[2019-10-17 16:35] LABS: Absolute Lymphocytes (CBC) 2.2 K/uL (0.7-4.9); Basophils % 0.7 % (0-1.3); Lymphocytes % 31.3 % (15.3-44.8); MPV 8.2 fL (7.6-11.3); RBC Red Blood Cell Count 3.48 M/uL (3.86-4.86)
--- NOTE | 2019-10-17 17:00 | PREOPHP ---
Date of Admission: 10/18/2019 History Of Present Illness: This is a -koow-kyw female, 5, para 4, AB1 with pelvic mass, severe pelvic pain. The patient has been given options including expectant management. She w ishes to proceed with surgery as she says the pain is unbearable. Infection, blood loss; anesthetic complications; injury to bladder, bowel, ureter; postoperative complications, clots in legs and pneum onia discussed. The patient knows fully well this does not constitute all the problems that could oc cur during the following surgery. Knows that we may have to remove the ovary. We will try to do a c ystectomy but if not possible we will remove the ovary. She has also been signed for an appendectomy . Dr. Goodwin will decide at the time of surgery whether it needs to be removed or not. Family History: Paternal grandfather with hypertension. Maternal grandfather with a stroke. There have been some cancers on the mother's side of the family but nothing pertinent to this situation. Past Medical History: The patient has had anxiety in the past. She had 4 previous sections . She had a tummy tuck, a tubal in 2008. She has been on Xanax and Seroquel in the past but not at this point. Social History: Does not smoke. Physical Examination: HEENT: Clear. Pupils equal, round, and reactive to light and accommodation. Conjunctivae well perf used. No oral, lingual, or buccal lesions. Chest and Lungs: Clear. Heart: Without murmurs, thrills, heaves, or rubs. Breasts: Breasts were not examined. Extremities: Clear without edema, cyanosis, or clubbing. The patient is in significant pain today and we have deferred a pelvic exam. She knows that if her p ain goes away overnight, we will cancel the surgery. Final Diagnosis: Right ovarian mass, cystic. Plan: We will proceed with diagnostic laparoscopy, cystectomy, or oophorectomy, possible appendectom y. TRISTON/MANUELA Voice ID: [id number]
[2019-10-17 17:25] LABS: Protime INR 0.94
--- OUTSIDE RECORDS SUMMARY | 2019-10-18 06:25 | XMS REPORT | Clinical Summary ---
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
--- OUTSIDE RECORDS SUMMARY | 2019-10-18 06:26 | XMS REPORT | Continuity of Care Document ---
:1990 Author Organization [facility] t Address [address] [place] [address] Care Team Providers Name Role Phone Asked, Pcp Primary Care Physician Unavailable DR DAMI Attending Clinician Unavailable DR DAMI Admitting Clinician Unavailable Problems Condition Condition Condition Status Onset Resolution Last Treating Co mments Source Name Details Category Date Date Treatment Clinician Date Chronic Chronic Disease Active 2017-04 [place] tonsilliti tonsilliti 04-12 [place] thodi s s 00:00: st 00 Localized [...] Date Quantity Comments Source Sex Assigned At [facility] ethodist Alcohol intake 2018-02-13 2018-02-13 [facility] non-drinker of alcohol (finding) Smoking Status Start Date Stop Date Source Never smoker [facility] t Medications Ordered Filled Start Stop [...] [facility] IV Drug) [facility] Amphetamine Amphetamine Yes Zev (Schedule [facility] -Dextroamph -Dextroamph [facility] II Drug) [facility] Quetiapine Quetiapine Yes Zev not C HI [facility] Fumarate Fumarate [facility] defined Lucy kes - [facility] Procedures This patient has no known procedures. Encounters Start End Encounter Admission Attending Care Care Encounter Source Date/Time Date/Time Type Type Clinicians Facility Department ID 2018-01-24 2018-01-24 Outpatient Efren [facility] [id number] [facility]:00[facility]00 00[facility]00[facility] 2017-11-16 2017-11-16 Outpatient Irena Santoro [id number] 16:35:00 16:35:00 [facility] 2017-11-15 2017-11-15 Outpatient Irena Santoro [id number] 08:30:00 08:30:00 [facility] 2017-11-02 2017-11-02 Outpatient Irena Santoro [id number] 09:30:00 09:30:00 [facility] ent [facility] Results This patient has no known results.
[2019-10-18] MEDS ORDERED: Ringers Lactate 1,000 ML IV ONE ×2 (06:51→09:36)
[2019-10-18] MEDS ORDERED: LIDOCAINE 1% MPF 5 ML VIAL ONE (07:14)
[2019-10-18] MEDS ORDERED: propofoL 200 MG/20 ML VIAL IV ONE (07:14)
[2019-10-18] MEDS ORDERED: FENTANYL CITR 100 MCG/2 ML ONE ×2 (07:14→08:57)
[2019-10-18] MEDS ORDERED: MIDAZOLAM HCL 2 MG/2 ML INJ ONE (07:14)
[2019-10-18] MEDS ORDERED: ROCURONIUM 50 MG/5 ML VIAL IV ONE (07:14)
[2019-10-18] MEDS ORDERED: BUPIVACAINE 0.5% PF 10 ML VIAL ONE (07:27)
[2019-10-18] MEDS ORDERED: CEFAZOLIN/SWI 2gm 2 GM/20 ML SYR ONE (07:36)
[2019-10-18] MEDS ORDERED: KETOROLAC 30 MG/ML INJ ONE (08:07)
[2019-10-18] MEDS ORDERED: dexAMETHasone 10 MG/ML VIAL ONE (08:07)
[2019-10-18] MEDS ORDERED: GLYCOPYRROLATE 0.2 MG/ML SYR ONE (08:12)
[2019-10-18] MEDS ORDERED: ONDANSETRON 4 MG/2 ML VIAL ONE ×2 (08:12→09:16)
[2019-10-18] MEDS ORDERED: NEOSTIGMINE 1 MG/ML -5 ML ONE (08:12)
[2019-10-18] MEDS: HYDROMORPHONE HCL 1 MG/ML INJ ONE ×4 (09:10→09:40)
[2019-10-18] MEDS ORDERED: MEPERIDINE HCL 25 MG/ML SYR ONE (09:30)
--- NOTE | 2019-10-18 09:43 | OP ---
Surgeon: Jameel Dos Santos MD Preoperative Diagnoses: Right adnexal mass - multicystic ovarian cyst, severe pelvic pain. Full pre operative counseling concerning procedure and possible complications, including infection, blood loss , anesthetic complications, injury to bladder, bowel, ureter, postoperative complications, clots in l egs, and pneumonia. The possibility for ovarian removal if cystectomy was not successful fully discu ssed with the patient. Possible appendectomy as well if the appendix looked abnormal. Description Of Procedure: After adequate general anesthesia, the patient was prepped and draped in u sual sterile manner. A time-out was performed. Trocar was placed in the approximate area of the umb ilicus. This patient had had previous abdominoplasty, but the approximate area was obtained. There was slight bleeding, but fulguration was performed, and with balloon catheter pressure, bleeding stop ped. Three additional trocar sites 5 mm were placed. There was noted to be extensive pelvic adhesio ns. These were lysed with ligature, took sometime. After visualization of the pelvis was obtained, the right ovary was elevated, noted to be multicystic. Attempted cystectomy was performed, but there were too many cysts and loculations and therefore it was decided to remove the ovary. This was done and portion of the tube was removed also as it was involved in extensive adhesions and did not look healthy. After tube and ovary removed, the appendix was visualized and noted to be normal. At this point, no further bleeding was seen in the pelvis. All instruments were removed and incisions were c losed. Blood loss was less than 100 cc. The patient tolerated all procedures well, will be sent to the recovery room in good condition. Final Diagnoses: Severe pelvic pain, diagnostic laparoscopy, lysis of extensive adhesions, right cys tectomy, right oophorectomy, and partial salpingectomy. TRISTON/PARISHL Voice ID: [id number] Report ID: [id number]
--- NOTE | 2019-10-18 09:49 | DS ---
Hospital Course: A 29-year-old female, who underwent diagnostic laparoscopy, lysis of numerous adhes ions, right cystectomy, right oophorectomy, right partial salpingectomy. Estimated blood loss less t weston 100 cc. The patient will be observed for 2 hours or more and then dismissed to return to [facility] in 1 week for followup, to report any temperature elevation of 100 degrees or greater, severe pain , heavy bleeding, or any other type of abnormalities. Final Diagnoses: Severe right pelvic pain, diagnostic laparoscopy, lysis of numerous extensive adhes ions, right cystectomy, right oophorectomy, and right partial salpingectomy. TRISTON/MANUELA Voice ID: [id number] Report ID: [id number]
[2019-10-18] MEDS ORDERED: PROMETHAZINE INJ 25 MG/ML AMP ONE (09:58)
[2019-10-18] MEDS ORDERED: METOCLOPRAMIDE 10 MG/2mL INJ ONE (09:58)
[2019-10-18] MEDS ORDERED: HYDROMORPHONE HCL 1 MG/ML INJ ONE (09:59)
[2019-10-18 10:58] VITALS: O2SAT 100
[2019-10-18] MEDS ORDERED: TRAMADOL HCL 50 MG TAB ONE (11:27)
[2019-10-18 12:03] VITALS: BP 90/45; TEMP 97.1
== END 2019-10-18 11:50 | disposition home or self-care (01) ==
LOC: OR 06:20
PROVIDERS: ATTEND Specialist
PROC: 0UT54ZZ Resection of Right Fallopian Tube, Percutaneous Endoscopic Approach (ICD-10-PCS; 2019-10-18)
PROC: 0DNW4ZZ Release Peritoneum, Percutaneous Endoscopic Approach (ICD-10-PCS; 2019-10-18)
PROC: 0UT04ZZ Resection of Right Ovary, Percutaneous Endoscopic Approach (ICD-10-PCS; principal; 2019-10-18 07:30)
DX: N83.201 Unspecified ovarian cyst, right side (principal); N73.6 Female pelvic peritoneal adhesions (postinfective); Z11.59 Encounter for screening for other viral diseases; Z82.49 Family history of ischemic heart disease and other diseases of the circulatory system; Z82.3 Family history of stroke
CPT/HCPCS: 85025; 36415; 86900; 86850; 81025; 85610; 86901; 88305; 85730; 81003; 58661; 49329; U0002; J2704; J2765; J2550; J2250; J3010 ×2; J1100; J2175; J1170 ×3; J2710; J0690; J7120 ×2; J2405 ×2

== ENCOUNTER 2020-04-08 21:14 | Emergency (ER) | payer BC ==
--- OUTSIDE RECORDS SUMMARY | 2020-04-08 21:17 | XMS REPORT | Clinical Summary ---
:1990 Author Organization [facility] [employer] Address [address] [place] [id number] Care Team Providers Name Role Phone Asked, [...] Problems Problem Noted Date Chronic tonsillitis 02/10/2018 Surgical History Surgery Date Site/Laterality Comments SECTION x4 CHOLECYSTECTOMY GASTRIC BYPASS ABDOMINAL SURGERY tummy tuck BREAST SURGERY andrei breast impla nt TONSILLECTOMY 02/10/2018 Mouth/N/A Procedure: TONSI LLECTOMY; Surgeon: Brannon Monae M D; Location: [address]; Service: EN T; Laterality: N/A; Medical History Medical History Date Comments Anxiety Social History Tobacco Use Types Packs/Day Years Used Date Never Smoker Smokeless Tobacco: Never Used Alcohol Use Drinks/Week oz/Week Comments No Sex Assigned at Date Recorded Not on file Last Filed Vital Signs Not on file Plan of Treatment Not on file Results Not on fileafter 04/08/2019 Advance Directives For more information, please contact: [phone] Type Date Recorded 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
--- OUTSIDE RECORDS SUMMARY | 2020-04-08 21:17 | XMS REPORT | Continuity of Care Document ---
:1990 Author Organization [facility] t Address [address] [place] [address] Care Team Providers Name Role Phone Asked, Pcp Primary Care Physician Unavailable DR DAMI Attending Clinician Unavailable DR DAMI Admitting Clinician Unavailable Problems Condition Condition Condition Status Onset Resolution Last Treating Co mments Source Name Details Category Date Date Treatment Clinician Date Chronic Chronic Disease Active 2017-04 [place] tonsilliti tonsilliti 04-12 Me thodi s s 00:00: st 00 Localized [...] Date Quantity Comments Source Sex Assigned At [facility] ethodi Tobacco use and 2018-02-13 2018-02-13 Never used [facility] ethodist exposure 00:00:00 00:00:00 Alcohol intake 2018-02-13 2018-02-13 [facility] non-drinker of alcohol (finding) Smoking Status Start Date Stop Date Source Never smoker [facility] t Medications Ordered Filled Start Stop Current Ordering Indication Dosage Frequency Signature Comments Components Source Medication Medication Date Date Medication? Clinician (SIG) Name Name dextroamphe 2017-04 Yes 20mg QD Take 20 mg [facility] tamine-amph 04-12 by mouth Meth manuel etamine 16:35: daily. st (ADDERALL) 00 20 mg tablet ALPRAZolam 2017-04 Yes TK 1 T PO [place] (XANAX) 1 0-16 TID Methodi MG tablet 00:00: st 00 QUEtiapine Yes TK 1 T PO [place] (SEROquel) 9-10 HS Methodi 300 MG 00:00: st tablet 00 Alprazolam Alprazolam Yes Zev (Schedule [facility] Amphetamine Amphetamine Yes Zev (Schedule [facility] -Dextroamph -Dextroamph [facility] II Drug) [facility] Quetiapine Quetiapine Yes Zev not C [facility] Fumarate Fumarate [facility] defined Lucy kes - [facility] Procedures This patient has no known procedures. Encounters Start End Encounter Admission Attending Care Care Encounter Source Date/Time Date/Time Type Type Clinicians Facility Department ID 2018-01-24 2018-01-24 Outpatient Efren [place]OMAX [place] [id number] [facility] 00:00:00 00:00:00 [facility] 2017-11-16 2017-11-16 Outpatient Irena Santoro [id number] 16:35:00 16:35:00 t [facility] 2017-11-15 2017-11-15 Outpatient Irena Santoro [id number] 08:30:00 08:30:00 t [facility] 2017-11-02 2017-11-02 Outpatient Irena Santoro [id number] 09:30:00 09:30:00 t [facility] Results This patient has no known results.
[2020-04-08] MEDS ORDERED: NA CHLORIDE 0.9% 1,000 ML ONE (22:03)
[2020-04-08] MEDS ORDERED: ONDANSETRON 4 MG/2 ML VIAL ONE (22:03)
[2020-04-08] MEDS ORDERED: MORPHINE 4 MG/ML SYR ONE (22:03)
[2020-04-08 22:04] LABS: Absolute Lymphocytes (CBC) 2.5 K/uL (0.7-4.9); Basophils % 0.6 % (0-1.3); Hematocrit 31.4 % (36.0-45.0); Lymphocytes % 34.1 % (15.3-44.8); MPV 7.6 fL (7.6-11.3); RBC Red Blood Cell Count 3.27 M/uL (3.86-4.86)
[2020-04-08 22:21] LABS: ALT/SGPT 10 U/L (12-78); AST/SGOT 9 U/L (15-37); Albumin 3.8 g/dL (3.4-5.0); Alkaline Phosphatase 46 U/L (45-117); BUN Blood Urea Nitrogen 13 mg/dL (7-18); Bicarbonate 20 mmol/L (21-32); Bilirubin Direct < 0.1 mg/dL (0-0.2); Bilirubin Total 0.1 mg/dL (0.2-1.0); Glucose Level 82 mg/dL (74-106); Lipase 276 U/L (73-393); Potassium 3.5 mmol/L (3.5-5.1); Protein, Total 7.1 g/dL (6.4-8.2); Sodium Level 143 mmol/L (136-145)
[2020-04-08] MEDS ORDERED: FENTANYL CITR 100 MCG/2 ML ONE (22:44)
[2020-04-08] MEDS ORDERED: PROMETHAZINE INJ 25 MG/ML AMP ONE (23:38)
--- NOTE | 2020-04-08 23:43 | EDPHYS ---
Physician Documentation [facility] Name: Leesa Stone Age: 29 yrs Sex: Female : 1990 Arrival Date: 04/08/2020 Time: 21:20 Bed 6 Private MD: ED Physician Frank Ashford HPI: 04/08 22:03 This 29 yrs old Female presents to ER via Wheelchair with complaints of pm1 abdominal pain. 22:03 The patient presents with abdominal pain in the left lower quadrant. Onset: The pm1 symptoms/episode began/occurred 1 hour prior to arrival. The symptoms do not radiate. Associated signs and symptoms: Pertinent positives: diarrhea, Pertinent negatives: nausea and vomiting, chest pain, dysuria, fever, shortness of breath. The symptoms are described as sharp. Modifying factors: The symptoms are alleviated by nothing, the symptoms are aggravated by movement. Severity of pain: in the emergency department the pain is unchanged. The patient has experienced similar episodes in the past, a few times, today's symptoms are similar, to previous ovarian cysts. The patient has not recently seen a physician. 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 - Social history:: Smoking status: Patient denies any tobacco usage or history of. ROS: 22:03 Constitutional: Negative for fever, chills, and weight loss, Cardiovascular: Negative pm1 for chest pain, palpitations, and edema, Respiratory: Negative for shortness of breath, cough, wheezing, and pleuritic chest pain. 22:03 Back: Negative for injury and pain, : Negative for injury, bleeding, discharge, and swelling, MS/Extremity: Negative for injury and deformity, Skin: Negative for injury, rash, and discoloration, Neuro: Negative for headache, weakness, numbness, tingling, and seizure. 22:03 Abdomen/GI: Positive for abdominal pain, diarrhea, Negative for nausea and vomiting. Exam: 22:03 Back: No spinal tenderness. No costovertebral tenderness. Full range of motion. pm1 Skin: Warm, dry with normal turgor. Normal color with no rashes, no lesions, and no evidence of cellulitis. MS/ Extremity: Pulses equal, no cyanosis. Neurovascular intact. Full, normal range of motion. 22:03 Constitutional: The patient appears in no acute distress, alert, awake, non-diaphoretic, non-toxic, well developed, well hydrated, well groomed, well nourished, uncomfortable. 22:03 Cardiovascular: Rate: tachycardic, Rhythm: regular, Pulses: no pulse deficits are appreciated, Edema: is not appreciated. 22:03 Respiratory: Exam negative for acute changes, respiratory distress, shortness of breath. 22:03 Abdomen/GI: Exam negative for acute changes, Inspection: abdomen appears normal, Palpation: soft, in all quadrants, mild abdominal tenderness, in the left lower quadrant. 22:03 Neuro: Exam negative for acute changes, Orientation: is normal, Mentation: is normal, Motor: is normal, moves all fours. 22:03 Psych: Behavior/mood is cooperative, Affect is animated, Oriented to person, place, time. Vital Signs: 21:30 BP 104 / 64; Pulse 117; Resp 18 S; Temp 99.9(TE); Pulse Ox 99% ; Weight 74.39 kg (R); ca1 Height 5 ft. 1 in. (154.94 cm) (R); Pain 9/10; 22:41 BP 119 / 86; Pulse 98; Resp 18; Pulse Ox 99% ; ea 23:50 BP 111 / 60; Pulse 87; Resp 18; Temp 98.7; Pulse Ox 99% ; ea 21:30 Body Mass Index 30.99 (74.39 kg, 154.94 cm) ca1 MDM: 21:38 Patient medically screened. pm1 23:41 Data reviewed: vital signs. Counseling: I had a detailed discussion with the patient pm1 and/or guardian regarding: the historical points, exam findings, and any diagnostic results supporting the discharge/admit diagnosis, lab results, radiology results, the need for outpatient follow up, for definitive care, an OB/Gyne specialist, to return to the emergency department if symptoms worsen or persist or if there are any questions or concerns that arise at home. 04/08 21:41 Order name: Basic Metabolic Panel; Complete Time: 22:22 pm1 04/08 21:41 Order name: CBC with Diff; Complete Time: 22:06 pm1 04/08 21:40 Order name: Transvaginal Study (probe) pm1 04/08 21:41 Order name: Hepatic Function; Complete Time: 22:22 pm1 04/08 21:41 Order name: Lipase; Complete Time: 22:22 pm1 04/08 21:41 Order name: CT Abd/Pelvis - IV Contrast Only pm1 04/08 21:41 Order name: IV Saline Lock; Complete Time: 21:59 pm1 04/08 21:41 Order name: Labs collected and sent; Complete Time: 21:59 pm1 Administered Medications: 21:55 Drug: Zofran (Ondansetron) 4 mg Route: IVP; Site: right antecubital; ea 22:32 Follow up: Response: No adverse reaction ea 21:59 Drug: NS 0.9% 1000 ml Route: IV; Rate: 1000 ml; Site: right antecubital; ea 23:44 Follow up: Response: No adverse reaction; IV Status: Completed infusion; IV Intake: ea 1000ml :59 Drug: morphine 4 mg {Note: rass 1.} Route: IVP; Site: right antecubital; ea 22:32 Follow up: Response: No adverse reaction; No change in condition ea 22:32 Drug: fentaNYL (PF) 50 mcg Route: IVP; Site: right antecubital; ea 23:06 Follow up: Response: No adverse reaction; Pain is unchanged, physician notified ea 23:06 Drug: fentaNYL (PF) 50 mcg {Note: rass 1.} Route: IVP; Site: right antecubital; ea 23:45 Follow up: Response: No adverse reaction ea 23:26 Drug: Phenergan 12.5 mg Route: IVP; Site: right antecubital; ea 23:45 Follow up: Response: No adverse reaction ea 04/09 00:03 Drug: TORadol - Ketorolac 15 mg Route: IVP; Site: right antecubital; ea 00:03 Follow up: Response: Medication administered at discharge. ea Disposition: 00:59 Co-signature as Attending Physician, Frank Ashford MD. rn Disposition: 04/08/20 23:42 Discharged to Home. Impression: Other ovarian cysts - left. - Condition is Stable. - Discharge Instructions: Ovarian Cyst. - Prescriptions for Naprosyn 500 mg Oral Tablet - take 1 tablet by ORAL route 2 times per day As needed take with food; 30 tablet. Zofran ODT 4 mg Oral tablet,disintegrating - place 1 tablet by TRANSLINGUAL route every 8 hours As needed; 20 tablet. - Medication Reconciliation Form, Thank You Letter, Antibiotic Education, Prescription Opioid Use form. - Follow up: Emergency Department; When: As needed; Reason: Worsening of condition. Follow up: Private Physician; When: 2 - 3 days; Reason: Recheck today's complaints, Continuance of care, Re-evaluation by your physician. - Problem is new. - Symptoms have improved. Signatures: Dispatcher [employer] EDMS Frank Ashford MD MD rn Marinas, Darinel, CARDIOVASCULAR LAB DIRECTOR CARDIOVASCULAR LAB DIRECTOR pm1 Judith Sabillon RN RN ea Acob, Cheryl RN LEVI ca1 Corrections: (The following items were deleted from the chart) 04/08 23:44 23:42 04/08/2020 23:42 Discharged to Home. Impression: Unspecified ovarian cysts. pm1 Condition is Stable. Forms are Medication Reconciliation Form, Thank You Letter, Antibiotic Education, Prescription Opioid Use. Follow up: Emergency Department; When: As needed; Reason: Worsening of condition. Follow up: Private Physician; When: 2 - 3 days; Reason: Recheck today's complaints, Continuance of care, Re-evaluation by your physician. Problem is new. Symptoms have improved. pm1 04/09 00:10 04/08 23:44 04/08/2020 23:42 Discharged to Home. Impression: Other ovarian cysts - ea left. Condition is Stable. Discharge Instructions: Ovarian Cyst. Prescriptions for Naprosyn 500 mg Oral Tablet - take 1 tablet by ORAL route 2 times per day As needed take with food; 30 tablet, Tylenol-Codeine #3 300-30 mg Oral Tablet - take 2 tablets by ORAL route every 6 hours As needed; 20 tablet. and Forms are Medication Reconciliation Form, Thank You Letter, Antibiotic Education, Prescription Opioid Use. Follow up: Emergency Department; When: As needed; Reason: Worsening of condition. Follow up: Private Physician; When: 2 - 3 days; Reason: Recheck today's complaints, Continuance of care, Re-evaluation by your physician. Problem is new. Symptoms have improved. pm1
--- NOTE | 2020-04-08 23:43 | ER ---
Nurse's Notes 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 Denies N/V. ca1 Reports diarrhea. Pt crying in triage. Reports pain with movement and breathing. Coronavirus screen: Client denies travel out of the [place] in the last 14 days. diarrhea. Coronavirus screen: Client presents with at least one sign or symptom that may indicate coronavirus-19. Standard/surgical mask placed on the client. Provider contacted for isolation considerations. Ebola Screen: Patient negative for fever greater than or equal to 101.5 degrees Fahrenheit, and additional compatible Ebola Virus Disease symptoms Patient denies exposure to infectious person. Patient denies travel to an Ebola-affected area in the 21 days before illness onset. No symptoms or risks identified at this time. Initial Sepsis Screen: Does the patient meet any 2 criteria? No. Patient's initial sepsis screen is negative. Does the patient have a suspected source of infection? No. Patient's initial sepsis screen is negative. Risk Assessment: Do you want to hurt yourself or someone else? Patient reports no desire to harm self or others. Onset of symptoms was April 08, 2020. 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 - Social history:: Smoking status: Patient denies any tobacco usage or history of. Screenin:58 Abuse screen: Denies threats or abuse. Nutritional screening: No deficits noted. ea Tuberculosis screening: No symptoms or risk factors identified. Fall Risk IV access (20 points). Assessment: 22:00 General: Appears in no apparent distress. Behavior is appropriate for age, restless. ea Pain: Complains of pain in abdomen. Neuro: Level of Consciousness is awake, alert, obeys commands, Oriented to person, place, time. Respiratory: Airway is patent Respiratory effort is even, unlabored, Respiratory pattern is regular, symmetrical. Derm: Skin is pink, warm \T\ dry. 22:01 Reassessment: Ultrasound at bedside. ea 22:39 Reassessment: Patient and/or family updated on plan of care and expected duration. Pain ea level reassessed. 04/09 00:03 Reassessment: Patient and/or family updated on plan of care and expected duration. Pain ea level reassessed. Patient is alert, oriented x 3, equal unlabored respirations, skin warm/dry/pink. Discharge instruction given to patient, verbalized the understanding of instruction. Pt left ED ambulatory tolerating well. Vital Signs: 04/08 21:30 BP 104 / 64; Pulse 117; Resp 18 S; Temp 99.9(TE); Pulse Ox 99% ; Weight 74.39 kg (R); ca1 Height 5 ft. 1 in. (154.94 cm) (R); Pain 9/10; 22:41 BP 119 / 86; Pulse 98; Resp 18; Pulse Ox 99% ; ea 23:50 BP 111 / 60; Pulse 87; Resp 18; Temp 98.7; Pulse Ox 99% ; ea 21:30 Body Mass Index 30.99 (74.39 kg, 154.94 cm) ca1 ED Course: 21:20 Patient arrived in ED. cf2 21:30 Triage completed. ca1 21:33 Arm band placed on right wrist. ca1 21:34 Darinel Lizarraga NP is PHCP. pm1 21:34 Frank Ashford MD is Attending Physician. pm1 21:44 Judith Sabillon RN is Primary Nurse. ea 21:50 Inserted saline lock: 20 gauge in right antecubital area, using aseptic technique. ea Blood collected. 21:59 Patient has correct armband on for positive identification. Bed in low position. Call ea light in reach. Side rails up X2. NIBP on. 22:17 Transvaginal Study (probe) In Process Unspecified. EDMS 23:03 CT Abd/Pelvis - IV Contrast Only In Process Unspecified. EDMS 23:50 No provider procedures requiring assistance completed. ea 04/09 00:03 IV discontinued, intact, bleeding controlled, No redness/swelling at site. Pressure ea dressing applied. Administered Medications: 04/08 21:55 Drug: Zofran (Ondansetron) 4 mg Route: IVP; Site: right antecubital; ea 22:32 Follow up: Response: No adverse reaction ea 21:59 Drug: NS 0.9% 1000 ml Route: IV; Rate: 1000 ml; Site: right antecubital; ea 23:44 Follow up: Response: No adverse reaction; IV Status: Completed infusion; IV Intake: ea 1000ml 21:59 Drug: morphine 4 mg {Note: rass 1.} Route: IVP; Site: right antecubital; ea 22:32 Follow up: Response: No adverse reaction; No change in condition ea 22:32 Drug: fentaNYL (PF) 50 mcg Route: IVP; Site: right antecubital; ea 23:06 Follow up: Response: No adverse reaction; Pain is unchanged, physician notified ea 23:06 Drug: fentaNYL (PF) 50 mcg {Note: rass 1.} Route: IVP; Site: right antecubital; ea 23:45 Follow up: Response: No adverse reaction ea 23:26 Drug: Phenergan 12.5 mg Route: IVP; Site: right antecubital; ea 23:45 Follow up: Response: No adverse reaction ea 04/09 00:03 Drug: TORadol - Ketorolac 15 mg Route: IVP; Site: right antecubital; ea 00:03 Follow up: Response: Medication administered at discharge. ea Intake: 04/08 23:44 IV: 1000ml; Total: 1000ml. ea Outcome: 23:42 Discharge ordered by . pm1 04/09 00:04 Condition: stable ea Discharge instructions given to patient, family, Instructed on discharge instructions, follow up and referral plans. medication usage, Demonstrated understanding of instructions, follow-up care, medications. 00:06 Discharged to home ambulatory, with family. ea 00:10 Patient left the ED. ea Signatures: Dispatcher [employer] EDMS Darinel Lizarraga NP DESIGN RELEASE ENGINEER pm1 Judith Sabillon RN RN ea Denise Parker, RN RN ca1 Eze, Carolann cf2
[2020-04-09] MEDS ORDERED: KETOROLAC 30 MG/ML INJ ONE (00:11)
[2020-04-09 00:18] VITALS: O2SAT 99
[2020-04-09 00:21] VITALS: BP 111/60; TEMP 98.7
--- NOTE | 2020-04-09 08:26 | RAD REPORT ---
EXAM DESCRIPTION: US - Transvaginal Study Probe - 04/08/2020 10:17 pm CLINICAL HISTORY: LLQ pain, pelvic pain Preliminary findings were provided at the time of the study. COMPARISON: Transvaginal Study Probe dated 10/15/2019 TECHNIQUE: Endovaginal sonography was performed. FINDINGS: Endometrium is 5 mm in thickness with no mass, polyp or focal abnormality seen. Uterine si ze is normal at 8.8 x 3.9 x 4.8 cm. No myometrial mass. No blood or fluid in the cul de sac. Normal size left ovary is seen. Doppler evaluation shows normal blood flow in the left ovarian stroma . A 15 millimeter cyst of the left ovary is identified. No left adnexal mass seen. Right ovary was not identified. Patient detailed history of prior right oophorectomy. No right adnexa l mass identified. IMPRESSION: Unremarkable left ovary and left adnexa. No uterine abnormality. Right ovary is surgically absent.
--- NOTE | 2020-04-09 11:50 | RAD REPORT ---
EXAM DESCRIPTION: CT - Abdomen Pelvis W Contrast - 04/09/2020 6:35 am CLINICAL HISTORY: The patient is 29 years old and is Female; ABD PAIN TECHNIQUE: Axial computed tomography images of the abdomen and pelvis with intravenous contrast. S agittal and coronal reformatted images were created and reviewed. This CT exam was performed using one or more of the following dose reduction techniques: automated exposure control, adjustment of t he mA and/or kV according to patient size, and/or use of iterative reconstruction technique. DLP: 1324 mGy*cm COMPARISON: None. FINDINGS: LUNG BASES: Lung bases are clear. HEART: Visualized heart is normal. ABDOMEN: LIVER: Unremarkable. No mass. GALLBLADDER AND BILE DUCTS: Prior cholecystectomy. No ductal dilatation. PANCREAS: Unremarkable. No mass. No ductal dilation. SPLEEN: Unremarkable. No splenomegaly. ADRENALS: Unremarkable. No mass. KIDNEYS AND URETERS: Left renal cyst measuring 1.7 cm with mural calcification. Additional subcent imeter bilateral renal cysts. No hydronephrosis. STOMACH AND BOWEL: Prior Cristiana-en-Y gastric bypass. No obstruction. No mucosal thickening. PELVIS: APPENDIX: No findings to suggest acute appendicitis. BLADDER: Unremarkable. No mass. REPRODUCTIVE: Multilobular left ovarian cyst measuring 3.5 cm. ABDOMEN and PELVIS: INTRAPERITONEAL SPACE: Unremarkable. No free air. No significant fluid collection. BONES/JOINTS: No acute fracture. No dislocation. SOFT TISSUES: Bilateral breast implants, partially seen. VASCULATURE: Unremarkable. No abdominal aortic aneurysm. LYMPH NODES: Unremarkable. No enlarged lymph nodes. IMPRESSION: 1. No acute abdominal or pelvic abnormality. 2. Multilobular left ovarian cyst measuring 3.5 cm. No follow-up imaging is recommended. Reference: US recommendations based on Radiology 2010 Dec;256(3):943-54; CT/MR recommendations based on J Am Eric Radiol 2013;10:675-681. Electronically signed by: Mario Santana DO 04/08/2020 11:35 PM REGISTERED NURSE SURGICAL SERVICES Due to temporary technical issues with the PACS/Fluency reporting system, reports are being signed by the in house radiologist without review as a courtesy to ensure prompt reporting. The interpreting r adiologist is fully responsible for the content of the report.
== END 2020-04-09 00:10 | disposition home or self-care (01) ==
LOC: ER 21:14
DX: N83.292 Other ovarian cyst, left side (principal); F41.9 Anxiety disorder, unspecified; F90.9 Attention-deficit hyperactivity disorder, unspecified type; Z98.82 Breast implant status
CPT/HCPCS: 96361; 85025; 80048; 36415; 80076; 83690; 74177; 76830; 96375; 96374; 99284; Q9967; J2550; J3010; J7030; J2405

== ENCOUNTER 2020-05-04 20:57 | Emergency (ER) | payer BC ==
--- OUTSIDE RECORDS SUMMARY | 2020-05-04 20:58 | XMS REPORT | Clinical Summary ---
:1990 Author Organization [facility] Address [address] [place] [id number] Care Team Providers Name Role Phone Asked, [...] LLECTOMY; Surgeon: Brannon Monae M D; Location: [address]; Service: EN T; Laterality: N/A; Medical History Medical History Date Comments Anxiety Social History Tobacco Use Types Packs/Day Years Used Date Never Smoker Smokeless Tobacco: Never Used Alcohol Use Drinks/Week oz/Week Comments No Sex Assigned at Date Recorded Not on file Last Filed Vital Signs Not on file Plan of Treatment Not on file Results Not on fileafter 05/04/2019 Advance Directives For more information, please contact: [phone] Type Date Recorded 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
--- OUTSIDE RECORDS SUMMARY | 2020-05-04 20:59 | XMS REPORT | Continuity of Care Document ---
:1990 Author Organization [facility] t Address [address] [place] [address] Care Team Providers Name Role Phone Asked, Pcp Primary Care Physician Unavailable DR DAMI Attending Clinician Unavailable DR DMAI Admitting Clinician Unavailable Problems Condition Condition Condition Status Onset Resolution Last Treating Co mments Source Name Details Category Date Date Treatment Clinician Date Chronic Chronic Disease Active 2017-04 [place] tonsilliti tonsilliti 04-12 Me thodi s s [...] Date Quantity Comments Source Sex Assigned At [facility] ethodi Tobacco use and 2018-02-13 2018-02-13 Never used [facility] ethodist exposure 00:00:00 00:00:00 Alcohol intake 2018-02-13 2018-02-13 [facility] non-drinker of alcohol (finding) Smoking [...] [facility] Amphetamine Amphetamine Yes Zev (Schedule [facility] Quetiapine Quetiapine Yes Zev not [facility] Fumarate Fumarate [facility] defined Lucy kes - [facility] Procedures This patient has no known procedures. Encounters Start End Encounter Admission Attending Care Care Encounter Source Date/Time Date/Time Type Type Clinicians Facility Department ID 2018-01-24 2018-01-24 Outpatient Efren [place] [id number] [facility] 00:00:00 00:00:00 [facility] 2017-11-16 2017-11-16 Outpatient Irena Santoro [id number] [facility] [address] 16:35:[facility] 16:35[facility] 2017-11-15 2017-11-15 Outpatient Irena Santoro [id number] [facility] [address] 08:30:00 08:30:00 [facility] 2017-11-02 2017-11-02 Outpatient Irena Santoro [id number] [facility] 09:30:00 09:30:00 t [facility] Results This patient has no known results.
[2020-05-04 21:37] LABS: Absolute Lymphocytes (CBC) 2.3 K/uL (0.7-4.9); Basophils % 1.1 % (0-1.3); Hematocrit 30.7 % (36.0-45.0); Lymphocytes % 35.2 % (15.3-44.8); MPV 8.2 fL (7.6-11.3); RBC Red Blood Cell Count 3.15 M/uL (3.86-4.86)
[2020-05-04] MEDS ORDERED: ONDANSETRON 4 MG/2 ML VIAL ONE (21:46)
[2020-05-04] MEDS ORDERED: MORPHINE 4 MG/ML SYR ONE (21:46)
[2020-05-04 21:47] LABS: Urine Blood TRACE (NEG); Urine Glucose NEGATIVE (NEG); Urine Protein NEGATIVE (NEG); Urine Specific Gravity 1.025 (1.005-1.030)
[2020-05-04] MEDS ORDERED: NA CHLORIDE 0.9% 1,000 ML ONE (21:47)
[2020-05-04 21:49] LABS: ALT/SGPT 11 U/L (12-78); AST/SGOT 14 U/L (15-37); Albumin 3.7 g/dL (3.4-5.0); Alkaline Phosphatase 46 U/L (45-117); BUN Blood Urea Nitrogen 15 mg/dL (7-18); Bicarbonate 19 mmol/L (21-32); Bilirubin Direct < 0.1 mg/dL (0-0.2); Bilirubin Total 0.1 mg/dL (0.2-1.0); Glucose Level 67 mg/dL (74-106); Lipase 353 U/L (73-393); Potassium 3.7 mmol/L (3.5-5.1); Protein, Total 7.4 g/dL (6.4-8.2); Sodium Level 146 mmol/L (136-145)
[2020-05-04] MEDS ORDERED: FENTANYL CITR 100 MCG/2 ML ONE (22:25)
[2020-05-04] MEDS ORDERED: KETOROLAC 30 MG/ML INJ ONE (23:22)
[2020-05-05] MEDS ORDERED: FAMOTIDINE 20 MG/2 ML VIAL IV ONE (01:09)
--- NOTE | 2020-05-05 02:06 | ER ---
Nurse's Notes [facility] 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 Coronavirus screen: Client denies travel out of the [place] in the last 14 days. At this time, the client does not indicate any symptoms associated with coronavirus-19. Ebola Screen: Patient denies travel to an Ebola-affected area in the 21 days before illness onset. Initial Sepsis Screen: Does the patient meet any 2 criteria? HR > 90 bpm. No. Patient's initial sepsis screen is negative. Does the patient have a suspected source of infection? Yes: Acute abdominal pain. Risk Assessment: Do you want to hurt yourself or someone else? Patient reports no desire to harm self or others. Onset of symptoms was May 04, 2020. 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 - Social history:: Smoking status: Patient denies any tobacco usage or history of. Screenin:09 Abuse screen: Denies threats or abuse. Nutritional screening: No deficits noted. ea Tuberculosis screening: No symptoms or risk factors identified. Fall Risk None identified. Assessment: 21:30 General: Appears in no apparent distress. Behavior is calm, cooperative, appropriate ea for age. Pain: Complains of pain in right lower quadrant. Neuro: Level of Consciousness is awake, alert, obeys commands, Oriented to person, place, time, situation. Respiratory: Airway is patent Respiratory effort is even, unlabored, Respiratory pattern is regular, symmetrical. GI: Abd is soft X 4 quads Abdomen is tender to palpation in right lower quadrant and left lower quadrant. Derm: Skin is pink, warm \T\ dry. 22:50 Reassessment: Patient and/or family updated on plan of care and expected duration. Pain ea level reassessed. Patient is alert, oriented x 3, equal unlabored respirations, skin warm/dry/pink. 23:55 Reassessment: Patient and/or family updated on plan of care and expected duration. Pain ea level reassessed. Patient is alert, oriented x 3, equal unlabored respirations, skin warm/dry/pink. Awaiting on ultrasound. 05/05 02:14 GI: Bowel sounds present X 4 quads. wh Vital Signs: 05/04 21:09 BP 97 / 79; Pulse 109; Resp 18; Temp 98.8; Pulse Ox 96% ; Weight 72.57 kg; Height 5 ft. ll1 1 in. (154.94 cm); Pain 8/10; 05/05 00:00 BP 91 / 50; Pulse 86; Resp 18; Pulse Ox 98% on R/A; ea : BP 115 / 61; Pulse 80; Resp 18; Pulse Ox 98% ; ea 05/04 21:09 Body Mass Index 30.23 (72.57 kg, 154.94 cm) ll1 ED Course: 05/04 20:57 Patient arrived in ED. cf2 21:09 Arm band placed on Patient placed in an exam room, on a stretcher. ll1 21:10 Triage completed. ll1 21:10 Patient has correct armband on for positive identification. Placed in gown. Bed in low ea position. Call light in reach. Side rails up X2. 21:13 Montze Walker PA is PHCP. [facility] 21:13 Merrick Lobo MD is Attending Physician. [facility] 21:13 Judith Sabillon RN is Primary Nurse. ea 21:22 Inserted saline lock: 20 gauge in right antecubital area, using aseptic technique. ea Blood collected. 22:05 CT Abd/Pelvis - IV Contrast Only In Process Unspecified. EDMS 05/05 01:08 US Pelvis Complete In Process Unspecified. EDMS 02:15 No provider procedures requiring assistance completed. IV discontinued, intact, wh bleeding controlled, No redness/swelling at site. Administered Medications: 05/04 21:35 Drug: Zofran (Ondansetron) 4 mg Route: IVP; Site: right antecubital; ea 22:00 Follow up: Response: No adverse reaction 21:37 Drug: morphine 4 mg Route: IVP; Site: right antecubital; ea 22:00 Follow up: Response: No adverse reaction 21:37 Drug: NS 0.9% 1000 ml Route: IV; Rate: 1 bolus; Site: right antecubital; 05/05 02:15 Follow up: Response: No adverse reaction; IV Status: Completed infusion 05/04 22:18 Drug: fentaNYL (PF) 50 mcg {Note: 1.} Route: IVP; Site: right antecubital; 05/05 01:31 Follow up: Response: No adverse reaction 05/04 23:10 Drug: TORadol 30 mg Route: IVP; Site: right antecubital; 05/05 01:31 Follow up: Response: No adverse reaction 01:31 Drug: Pepcid 20 mg Route: IVP; Site: right antecubital; ea 02:16 Follow up: Response: No adverse reaction Outcome: 02:05 Discharge ordered by . mh7 02:15 Discharged to home ambulatory. 02:15 Condition: stable 02:15 Discharge instructions given to patient, Instructed on discharge instructions, follow up and referral plans. no drinking with medication, no driving heavy equipment, medication usage, POC Demonstrated understanding of instructions, follow-up care, medications, POC Prescriptions given X 2. 02:16 Patient left the ED. Signatures: Dispatcher [employer] EDMS Montez Walker PA PA jmm Antunez, Elena, RN RN ea Habalo, Winsy, RN RN Carolann Loo cf2 Sergio Crandall RN RN 1 Merrick Lobo MD MD mh7
--- NOTE | 2020-05-05 02:06 | EDPHYS ---
Physician Documentation [facility] Name: Leesa Stone Age: 29 yrs Sex: Female : 1990 Arrival Date: 05/04/2020 Time: 20:57 Bed 18 Private MD: ED Physician Merrick Lobo HPI: 05/04 21:13 This 29 yrs old Female presents to ER via Ambulatory with complaints of jmm Abdominal Pain, Vomiting. 21:13 The patient presents with abdominal pain. Onset: The symptoms/episode began/occurred jmm gradually, 2 day(s) ago. The symptoms do not radiate. Associated signs and symptoms: Pertinent positives: vomiting, Pertinent negatives: diarrhea, dysuria, fever, vaginal discharge. The symptoms are described as achy, sharp. Modifying factors: The symptoms are alleviated by nothing, the symptoms are aggravated by nothing. The patient has not experienced similar symptoms in the past. Patient states the pain is around her suprapubic region and then radiates to the right lower quadrant. 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 - Social history:: Smoking status: Patient denies any tobacco usage or history of. ROS: 21:13 Constitutional: Negative for fever, chills, and weight loss, Cardiovascular: Negative jmm for chest pain, palpitations, and edema, Respiratory: Negative for shortness of breath, cough, wheezing, and pleuritic chest pain. 21:13 Abdomen/GI: Positive for abdominal pain, nausea and vomiting. 21:13 All other systems are negative. Exam: 21:13 Constitutional: This is a well developed, well nourished patient who is awake, alert, jmm and in no acute distress. Head/Face: atraumatic. Eyes: EOMI, no conjunctival erythema appreciated ENT: Moist Mucus Membranes Neck: Trachea midline, Supple Chest/axilla: Normal chest wall appearance and motion. Cardiovascular: Regular rate and rhythm. No edema appreciated Respiratory: Normal respirations, no respiratory distress appreciated 21:13 Abdomen/GI: Inspection: abdomen appears normal, Bowel sounds: normal, Palpation: soft, moderate abdominal tenderness, in the suprapubic area and right lower quadrant. 21:13 : Pelvic Exam: External exam: is normal, Speculum exam: no bleeding is noted, no cervicitis, bimanual exam reveals no cervical motion tenderness, no adnexa tenderness or masses bilaterally. 21:13 Musculoskeletal/extremity: ROM: intact in all extremities. 21:13 Skin: Appearance: Color: normal in color. 21:13 Neuro: Orientation: is normal, Mentation: is normal, Memory: is normal. 21:13 Psych: Behavior/mood is pleasant, cooperative. Vital Signs: 21:09 BP 97 / 79; Pulse 109; Resp 18; Temp 98.8; Pulse Ox 96% ; Weight 72.57 kg; Height 5 ft. ll1 1 in. (154.94 cm); Pain 8/10; 05/05 00:00 BP 91 / 50; Pulse 86; Resp 18; Pulse Ox 98% on R/A; ea 01: BP 115 / 61; Pulse 80; Resp 18; Pulse Ox 98% ; ea 05/04 21:09 Body Mass Index 30.23 (72.57 kg, 154.94 cm) ll1 MDM: 05/04 21:13 Patient medically screened. [facility] 05/05 00:40 Data reviewed: vital signs, nurses notes. Counseling: I had a detailed discussion with brandon the patient and/or guardian regarding: the historical points, exam findings, and any diagnostic results supporting the discharge/admit diagnosis, lab results, radiology results. Transition of care: After a detail discussion of the patient's case, care is transferred to Merrick Lobo MD. 02:02 Differential diagnosis: Nonspecific abd pain, appendicitis, diverticulitis, viral mh7 gastroenteritis, gastroenteritis. 02:04 Data interpreted: Pulse oximetry: on room air is 98 %. Interpretation: normal. Response mh7 to treatment: the patient's symptoms have markedly improved after treatment. 05/04 21:20 Order name: Basic Metabolic Panel; Complete Time: 21:58 ea 05/04 21:20 Order name: CBC with Diff; Complete Time: 21:58 ea 05/04 21:20 Order name: Hepatic Function; Complete Time: 21:58 ea 05/04 21:20 Order name: Lipase; Complete Time: 21:58 ea 05/04 21:34 Order name: Urine Dipstick--Ancillary (enter results) 05/04 21:34 Order name: Urine --Ancillary (enter results); Complete Time: 21:58 05/04 21:21 Order name: CT Abd/Pelvis - IV Contrast Only ea 05/04 21:34 Order name: Urine Dipstick-Ancillary; Complete Time: 21:58 EDMS 05/05 00:38 Order name: US Pelvis Complete [facility] 05/04 21:20 Order name: IV Saline Lock; Complete Time: 21:21 ea 05/04 21:20 Order name: Labs collected and sent; Complete Time: 21:22 ea Administered Medications: 05/04 21:35 Drug: Zofran (Ondansetron) 4 mg Route: IVP; Site: right antecubital; ea 22:00 Follow up: Response: No adverse reaction 21:37 Drug: morphine 4 mg Route: IVP; Site: right antecubital; ea 22:00 Follow up: Response: No adverse reaction 21:37 Drug: NS 0.9% 1000 ml Route: IV; Rate: 1 bolus; Site: right antecubital; 05/05 02:15 Follow up: Response: No adverse reaction; IV Status: Completed infusion 05/04 22:18 Drug: fentaNYL (PF) 50 mcg {Note: 1.} Route: IVP; Site: right antecubital; 05/05 01:31 Follow up: Response: No adverse reaction 05/04 23:10 Drug: TORadol 30 mg Route: IVP; Site: right antecubital; 05/05 01:31 Follow up: Response: No adverse reaction 01:31 Drug: Pepcid 20 mg Route: IVP; Site: right antecubital; ea 02:16 Follow up: Response: No adverse reaction Disposition: 02:55 Co-signature as Attending Physician, Merrick Lobo MD. mh7 Disposition: 05/05/20 02:05 Discharged to Home. Impression: Lower abdominal pain, unspecified. - Condition is Stable. - Discharge Instructions: Abdominal Pain, Adult. - Prescriptions for Bentyl 20 mg Oral Tablet - take 1 tablet by ORAL route every 6 hours As needed; 20 tablet. Zofran ODT 4 mg Oral tablet,disintegrating - place 1 tablet by TRANSLINGUAL route every 8 hours As needed; 10 tablet. - Medication Reconciliation Form, Thank You Letter, Antibiotic Education, Prescription Opioid Use form. - Follow up: Private Physician; When: 2 - 3 days; Reason: Recheck today's complaints, Continuance of care, Re-evaluation by your physician. - Problem is an acute exacerbation. - Symptoms have improved. - Notes: Please follow up with OBGYN and GI for further evaluation. Return to the ED if symptoms worsen. Signatures: Dispatcher [employer] EDMS Montez Walker PA PA jmm Antunez, Elena, RN RN Federico Garsia RN RN Sergio Marte RN RN [facility] Merrick Lobo MD MD mh7 Corrections: (The following items were deleted from the chart) 02:16 02:05 05/05/2020 02:05 Discharged to Home. Impression: Lower abdominal pain, wh unspecified. Condition is Stable. Discharge Instructions: Abdominal Pain, Adult. Prescriptions for Bentyl 20 mg Oral Tablet - take 1 tablet by ORAL route every 6 hours As needed; 20 tablet. and Forms are Medication Reconciliation Form, Thank You Letter, Antibiotic Education, Prescription Opioid Use. Follow up: Private Physician; When: 2 - 3 days; Reason: Recheck today's complaints, Continuance of care, Re-evaluation by your physician. Problem is an acute exacerbation. Symptoms have improved. mh7
[2020-05-05 02:21] VITALS: TEMP 98.8
[2020-05-05 02:23] VITALS: O2SAT 98
[2020-05-05 02:24] VITALS: BP 115/61
--- NOTE | 2020-05-05 06:44 | RAD REPORT ---
EXAM DESCRIPTION: US - Pelvis Complete - 05/05/2020 1:09 am CLINICAL HISTORY: Pelvic pain COMPARISON: May 04, 2020 cat scan FINDINGS: The uterus measures 11 x 4 x 4cm. The endometrial stripe measures 5 millimeters. A fibroid is not seen. Patient has a history of a right oophorectomy. Left ovary measures 4.3 x 2.5 x 3.7 centimeters. It contains a 2 centimeter cyst. Blood flow is prese nt within the left ovary. The right and left at adnexa unremarkable No significant free fluid is seen. IMPRESSION: 2 centimeter left ovarian cyst without significant free fluid
--- NOTE | 2020-05-05 11:18 | RAD REPORT ---
EXAM DESCRIPTION: CT - Abdomen Pelvis W Contrast - 05/05/2020 4:50 am CLINICAL HISTORY: 29-year-old female with abdominal pain. COMPARISON: 04/08/2020. TECHNIQUE: CT of the abdomen and pelvis was performed following intravenous administration of contra st. Oral contrast was not administered. Multiplanar reformatted images were provided. This exam was p erformed according to our departmental dose optimization program which includes use of automated expo sure control, adjustment of the mA and/or kV according to patient size and/or use of iterative recons truction technique. FINDINGS: Chest: Evaluation through the lung bases reveals no focal opacity, pleural effusion or pne umothorax. Heart size is within normal limits. No pericardial effusion. Incomplete visualization of b ilateral breast prosthesis. Abdomen and pelvis: The liver, pancreas, spleen, bilateral kidneys and bilateral adrenal glands are w ithin normal limits. Postoperative change of the stomach with linear surgical suture material along the course of the pilo anum body suggesting gastric reduction surgery. Surgical clips at the level of the gallbladder fossa status post cholecystectomy. Incidental note is made of an indeterminate appearing left-sided renal cyst measuring 16 mm with Houn sfield values of approximately 40. The vessels are patent and normal in caliber. No abdominopelvic lymph nodes are noted to be pathologically enlarged by CT measurement criteria. The bowel is within normal limits without abnormal bowel wall thickness or bowel dilation. No free air. No free abdominopelvic fluid collections. The appendix is within normal limits. The uterus and adnexa on the RIGHT side are within normal limits on the contrast-enhanced CT examinat ion. The LEFT adnexa likewise appears to be within normal limits with a focus of cystic type hypoatte nuation and curvilinear peripheral enhancement pattern measuring up to 2.7 cm compatible with a corpu s luteum type cyst. Trace free fluid present within the dependent pelvis, a nonspecific finding which may be physiologic in a patient this age. The osseous structures are within normal limits. IMPRESSION: 1. No specific acute intra-abdominal findings are noted to suggest etiology of the patie nt's abdominal pain. 2. Free fluid present within the dependent pelvis, a nonspecific finding which may be physiologic in a patient this age. 3. 2.7 cm corpus luteum ovarian cyst. No follow-up imaging is recommended. Reference: J Am Eric Radiol 2013;10:675-681 4. Indeterminate LEFT renal cyst measuring 15 mm similar in appearance to the previous examination. Electronically signed by: Nahomi Quintana MD 05/04/2020 10:43 PM DIRECTOR OF ACQUISITIONS Due to temporary technical issues with the PACS/Fluency reporting system, reports are being signed by the in house radiologist without review as a courtesy to ensure prompt reporting. The interpreting r adiologist is fully responsible for the content of the report.
== END 2020-05-05 02:16 | disposition home or self-care (01) ==
LOC: ER 20:57
DX: R10.30 Lower abdominal pain, unspecified (principal); Z88.6 Allergy status to analgesic agent
CPT/HCPCS: 85025; 80048; 36415; 81025; 80076; 81003; 83690; 74177; 76856; Q9967; J3010; J7030; J2405; 96361; 96374; 96375; 99284

== ENCOUNTER 2020-12-18 20:42 | Emergency (ER) | payer BC ==
[2020-12-18 21:05] LABS: Urine Blood Negative (Negative); Urine Glucose Negative (Negative); Urine Protein Negative (Negative); Urine Specific Gravity >=1.030 (1.005-1.030)
[2020-12-18 21:20] LABS: Absolute Lymphocytes (CBC) 0.9 K/uL (0.7-4.9); Basophils % 0.1 % (0-1.3); Lymphocytes % 4.9 % (15.3-44.8); MPV 7.7 fL (7.6-11.3); RBC Red Blood Cell Count 3.51 M/uL (3.86-4.86)
[2020-12-18 21:34] LABS: Urine Specific Gravity/Preg >1.030 (1.005-1.030)
[2020-12-18 21:41] LABS: ALT/SGPT 17 U/L (12-78); AST/SGOT 11 U/L (15-37); Albumin 4.1 g/dL (3.4-5.0); Alkaline Phosphatase 55 U/L (45-117); BUN Blood Urea Nitrogen 21 mg/dL (7-18); Bicarbonate 24 mmol/L (21-32); Bilirubin Direct < 0.1 mg/dL (0-0.2); Bilirubin Total 0.2 mg/dL (0.2-1.0); Glucose Level 172 mg/dL (74-106); Lipase 258 U/L (73-393); Potassium 3.5 mmol/L (3.5-5.1); Protein, Total 7.9 g/dL (6.4-8.2); Sodium Level 139 mmol/L (136-145)
[2020-12-18] MEDS ORDERED: ONDANSETRON 4 MG/2 ML VIAL ONE (21:46)
[2020-12-18] MEDS ORDERED: MORPHINE 4 MG/ML SYR ONE (21:46)
[2020-12-18] MEDS ORDERED: NA CHLORIDE 0.9% 1,000 ML ONE (22:06)
[2020-12-19] MEDS ORDERED: MORPHINE 4 MG/ML SYR ONE ×2 (00:16→03:55)
[2020-12-19] MEDS ORDERED: NA CHLORIDE 0.9% 100 ML ONE (00:52)
[2020-12-19] MEDS ORDERED: CEFTRIAXONE/SWI 1gm 2 GM/20 ML SYR ONE (00:54)
[2020-12-19] MEDS ORDERED: NA CHLORIDE 0.9% 1,000 ML ONE (00:56)
[2020-12-19 02:29] LABS: Absolute Lymphocytes (CBC) 0.3 K/uL (0.7-4.9); Basophils % 0.1 % (0-1.3); Hematocrit 31.8 % (36.0-45.0); MPV 8.2 fL (7.6-11.3); RBC Red Blood Cell Count 3.23 M/uL (3.86-4.86)
--- NOTE | 2020-12-19 03:24 | EDPHYS ---
Physician Documentation [facility] Name: Leesa Stone Age: 30 yrs Sex: Female : 1990 Arrival Date: 12/18/2020 Time: 20:44 Bed 28 Private MD: ED Physician Diaz Gutierrez HPI: 12/19 00:19 This 30 yrs old Female presents to ER via Wheelchair with complaints of pkl Abdominal Pain. 00:19 The patient presents with abdominal pain in the lower abdomen. Onset: The pkl symptoms/episode began/occurred today. Associated signs and symptoms: Pertinent positives: constipation. Historical: - Allergies: 12/18 20:51 HYDROCODONE; em - PMHx: 20:51 ADD/ADHD; Anxiety; insomnia; em - Immunization history:: Adult Immunizations up to date. - Social history:: Smoking status: Patient denies any tobacco usage or history of. ROS: 12/19 00:29 Eyes: Negative for injury, pain, redness, and discharge, ENT: Negative for injury, pkl pain, and discharge, Neck: Negative for injury, pain, and swelling, Cardiovascular: Negative for chest pain, palpitations, and edema, Respiratory: Negative for shortness of breath, cough, wheezing, and pleuritic chest pain. Abdomen/GI: Positive for abdominal pain, of the right lower quadrant and left lower quadrant. Back: Negative for acute changes. : Negative for urinary symptoms. MS/extremity: Negative for acute changes. Skin: Negative for rash. Neuro: Negative for altered mental status, loss of consciousness. Exam: 00:29 Head/Face: Normocephalic, atraumatic. Eyes: Pupils equal round and reactive to light, pkl extra-ocular motions intact. Lids and lashes normal. Conjunctiva and sclera are non-icteric and not injected. Cornea within normal limits. Periorbital areas with no swelling, redness, or edema. ENT: Nares patent. No nasal discharge, no septal abnormalities noted. Tympanic membranes are normal and external auditory canals are clear. Oropharynx with no redness, swelling, or masses, exudates, or evidence of obstruction, uvula midline. Mucous membranes moist. Neck: Trachea midline, no thyromegaly or masses palpated, and no cervical lymphadenopathy. Supple, full range of motion without nuchal rigidity, or vertebral point tenderness. No Meningismus. Chest/axilla: Normal chest wall appearance and motion. Nontender with no deformity. No lesions are appreciated. Cardiovascular: Regular rate and rhythm with a normal S1 and S2. No gallops, murmurs, or rubs. Normal PMI, no JVD. No pulse deficits. Respiratory: Lungs have equal breath sounds bilaterally, clear to auscultation and percussion. No rales, rhonchi or wheezes noted. No increased work of breathing, no retractions or nasal flaring. 00:29 Abdomen/GI: Bowel sounds: normal, Palpation: soft, mild abdominal tenderness, in the right lower quadrant and left lower quadrant. 00:29 Back: Exam negative for acute changes. 00:29 : Pelvic Exam: Speculum exam: cervicitis present, bimanual exam reveals cervical motion tenderness, a female medart operator was present for the exam. 00:29 Musculoskeletal/extremity: Exam is negative for acute changes. 00:29 Skin: Exam negative for rash. 00:29 Neuro: Orientation: is normal, Mentation: is normal, Cranial nerves: grossly normal, Motor: is normal. Vital Signs: 12/18 20:50 BP 113 / 69; Pulse 83; Resp 18; Temp 97.7; Pulse Ox 100% on R/A; Weight 72.57 kg; em Height 5 ft. 1 in. (154.94 cm); 21:35 BP 107 / 66; Pulse 57; Resp 22; Temp 98.4(O); cc4 22:30 BP 103 / 65; Pulse 57; Resp 20; cc4 12/19 00:45 BP 110 / 59; Pulse 58; Resp 18; Temp 98.3(O); cc4 03:35 BP 107 / 65; Pulse 59; Resp 18; Temp 98.1(O); cc4 12/18 20:50 Body Mass Index 30.23 (72.57 kg, 154.94 cm) em MDM: 12/18 20:52 Patient medically screened. pkl 12/19 03:20 Data reviewed: vital signs, nurses notes, lab test result(s), radiologic studies, CT pkl scan, ultrasound. ED course: Patient feeling better. Discussed lab and imaging studies with patient. Advised to follow with her PCP ( Dr. Rivrea ) and Dr. Dos Santos ( Ob- Health Informatics Specialist ) in 1 to 2 days. To return if symptoms are worse. Patient understood instructions. 12/18 21:05 Order name: Urine Dipstick-Ancillary; Complete Time: 22:20 EDMS 12/18 21:07 Order name: Urine --Ancillary (enter results); Complete Time: 22:20 tt3 12/18 21:08 Order name: Basic Metabolic Panel [facility] 12/18 21:08 Order name: CBC with Diff [facility] 12/18 21:08 Order name: Hepatic Function [facility] 12/18 21:08 Order name: Lipase [facility] 12/18 21:09 Order name: Basic Metabolic Panel; Complete Time: 22:20 EDMS 12/18 21:09 Order name: CBC with Automated Diff; Complete Time: 22:20 EDMS 12/18 21:09 Order name: Liver (Hepatic) Function; Complete Time: 22:20 EDMS 12/18 21:09 Order name: Lipase; Complete Time: 22:20 EDMS 12/19 00:27 Order name: Wet Prep bb 12/19 00:28 Order name: Wet Prep; Complete Time: 01:24 EDMS 12/19 00:28 Order name: GC (GONORR/CHLAMYDIA) Probe bb 12/19 00:29 Order name: GC (Arden/Chl) Probe CX/URE EDTN 12/18 21:08 Order name: Urine Dipstick-Ancillary (obtain specimen); Complete Time: 21:08 [facility] 12/18 21:08 Order name: Urine Test (obtain specimen); Complete Time: 21:08 [facility] 12/18 21:08 Order name: IV Saline Lock; Complete Time: 21:08 [facility] 12/18 21:08 Order name: Labs collected and sent; Complete Time: 21:08 [facility] 12/18 22:21 Order name: CT Abd/Pelvis - IV Contrast Only pkl 12/19 00:58 Order name: Transvaginal Study Probe EDTN 12/19 02:00 Order name: CBC with Diff; Complete Time: 03:16 cc4 12/19 00:27 Order name: Pelvic Exam Setup bb Administered Medications: 12/18 21:35 Drug: morphine 4 mg {Note: c/o lower abd pain "10" on pain scale with cc4 nausea/vomiting..} Route: IVP; Site: right antecubital; 21:35 Drug: Zofran (Ondansetron) 4 mg Route: IVP; Site: right antecubital; cc4 21:40 Drug: NS 0.9% 1000 ml Route: IV; Rate: 1000 ml; Site: right antecubital; cc4 23:55 Drug: morphine 4 mg {Note: c/o lower abd. pain "10" on pain scale..} Route: IVP; Site: cc4 right antecubital; 12/19 00:38 Drug: Rocephin (cefTRIAXone) 2 grams Route: IV; Rate: calculated rate; Site: right cc4 antecubital; 00:38 Drug: NS 0.9% 1000 ml Route: IV; Rate: 1000 ml; Site: right antecubital; cc4 03:30 Drug: morphine 4 mg Route: IVP; Site: right antecubital; cc4 Disposition Summary: 12/19/20 03:24 Discharge Ordered Location: Home pkl Problem: new pkl Symptoms: have improved pkl Condition: Stable pkl Diagnosis - Pelvic pain. Constipation. Leukosytosis pkl Followup: pkl - With: Private Physician - When: 1 - 2 days - Reason: Re-evaluation by your physician Discharge Instructions: - Discharge Summary Sheet pkl Forms: - Medication Reconciliation Form pkl - Thank You Letter pkl - Antibiotic Education pkl - Prescription Opioid Use pkl Prescriptions: - Ultram 50 mg Oral Tablet - take 1 tablet by ORAL route every 8 hours As needed; 15 tablet; Refills: 0, pkl Product Selection Permitted - Doxycycline Hyclate 100 mg Oral Tablet - take 1 tablet by ORAL route every 12 hours; 20 tablet; Refills: 0, Product pkl Selection Permitted Signatures: Dispatcher [employer] Diaz Mckay MD MD pkl Xander Michelle, RN RN Nikki Ellsworth RN RN Ángela Severino RN RN Sindy Kemp cc4 Corrections: (The following items were deleted from the chart) 00:58 00:22 Pelvis Complete+US.RAD.BRZ ordered. EDMS EDMS
--- NOTE | 2020-12-19 03:24 | ER ---
Nurse's Notes [facility] Name: Leesa Stone Age: 30 yrs Sex: Female : 1990 Arrival Date: 12/18/2020 Time: 20:44 Bed 28 [facility] MD: Diagnosis: Pelvic pain. Constipation. Leukosytosis Presentation: 12/18 20:50 Chief complaint: Patient states: lower abdominal pain, described as cramping, might be em constipated. Coronavirus screen: Vaccine status: Patient reports receiving the 2nd dose of the covid vaccine. Ebola Screen: Patient negative for fever greater than or equal to 101.5 degrees Fahrenheit, and additional compatible Ebola Virus Disease symptoms Patient denies exposure to infectious person. Patient denies travel to an Ebola-affected area in the 21 days before illness onset. No symptoms or risks identified at this time. Initial Sepsis Screen: Does the patient meet any 2 criteria? No. Patient's initial sepsis screen is negative. Does the patient have a suspected source of infection? No. Patient's initial sepsis screen is negative. Risk Assessment: Do you want to hurt yourself or someone else? Patient reports no desire to harm self or others. Onset of symptoms was December 18, 2020. 20:50 Method Of Arrival: Wheelchair em 20:50 Acuity: JAVIER 3 em Historical: - Allergies: 20:51 HYDROCODONE; em - PMHx: 20:51 ADD/ADHD; Anxiety; insomnia; em - Immunization history:: Adult Immunizations up to date. - Social history:: Smoking status: Patient denies any tobacco usage or history of. Screenin:11 Abuse screen: Denies threats or abuse. Nutritional screening: No deficits noted. vg1 Tuberculosis screening: No symptoms or risk factors identified. Fall Risk No fall in past 12 months (0 pts). No secondary diagnosis (0 pts). IV access (20 points). Ambulatory Aid- None/Bed Rest/Nurse Assist (0 pts). Gait- Normal/Bed Rest/Wheelchair (0 pts) Mental Status- Oriented to own ability (0 pts). Total Carbajal Fall Scale indicates No Risk (0-24 pts). Assessment: 21:00 General: Appears in no apparent distress. uncomfortable, Behavior is cooperative. Pain: vg1 Complains of pain in right lower quadrant and left lower quadrant and lower back Pain currently is 7 out of 10 on a pain scale. Pain began 4 hours ago. Noted to be grimacing, guarding, moaning. Neuro: Level of Consciousness is awake, alert, obeys commands, Oriented to person, place, time, situation. Cardiovascular: Patient's skin is warm and dry. Respiratory: Airway is patent Respiratory effort is even, unlabored. GI: Abdomen is flat, Bowel sounds present X 4 quads. Abdomen is tender to palpation in right lower quadrant and left lower quadrant Reports lower abdominal pain, constipation, diarrhea, nausea, vomiting. : Denies burning with urination, urinary frequency. EENT: No signs and/or symptoms were reported regarding the EENT system. Derm: Skin is intact, is healthy with good turgor. Musculoskeletal: Circulation, motion, and sensation intact. 21:35 Pain: Complains of pain in abdomen Reports abdominal pain "cramp" radiates into low cc4 back x 5 hours "10" on pain scale; c/o n/v;reports constipated stool 5 days ago; medicated as ordered (see orders). Is continuous, Alleviated by nothing. 22:53 Reassessment: Patient appears in no apparent distress at this time. Sleeping; NADN; cc4 arouses easily \\T\\ reports that pain has decreased to "6" on pain scale; IV NS patent \\T\\ open rate with no s/sx's of infiltration noted right AC site.. 12/19 01:00 Reassessment: c/o lower abdominal pain "10" on pain scale; morphine 4 mg given IVP.. cc4 01:00 Reassessment: Patient appears in no apparent distress at this time. Sleeping; arouses cc4 easily; reports lower abd. pain decresed to "6" on pain scale; NADN; to ulrasound via stretcher.. 02:00 Reassessment: Back from ultrasound; lab draw for CBC \\T\\ sent to lab' shelli. well.. cc4 03:30 Reassessment: c/o increasing lower abd. pain "8" on pain scale; morphine 4 mg given IVP cc4 as ordered; IV's complete with saline lock d/c'd with bleeding controlled; awaiting to pick her up.. 03:55 Reassessment: arrived; reports decreasing abd. pain to "6" on pain scale; NADN; cc4 diischarged to private vehicle with driving \\T\\ discharged home; NADN.. Vital Signs: 12/18 20:50 BP 113 / 69; Pulse 83; Resp 18; Temp 97.7; Pulse Ox 100% on R/A; Weight 72.57 kg; em Height 5 ft. 1 in. (154.94 cm); 21:35 BP 107 / 66; Pulse 57; Resp 22; Temp 98.4(O); cc4 22:30 BP 103 / 65; Pulse 57; Resp 20; cc4 12/19 00:45 BP 110 / 59; Pulse 58; Resp 18; Temp 98.3(O); cc4 03:35 BP 107 / 65; Pulse 59; Resp 18; Temp 98.1(O); cc4 12/18 20:50 Body Mass Index 30.23 (72.57 kg, 154.94 cm) em ED Course: 12/18 20:44 Patient arrived in ED. wm 20:51 Triage completed. em 20:51 Arm band placed on. em 20:52 Diaz Gutierrez MD is Attending Physician. pkl 21:05 Initial lab(s) drawn, by ct, sent to lab. Inserted saline lock: 20 gauge in right vg1 antecubital area, using aseptic technique. Blood collected. 21:11 Patient has correct armband on for positive identification. Bed in low position. Call vg1 light in reach. Side rails up X 1. 21:11 No provider procedures requiring assistance completed. vg1 21:35 Urine obtained. Labs ordered per protocol. CT ordered. cc4 21:38 Sindy Castle is Primary Nurse. cc4 21:45 Dr. Gutierrez in assessing pt with rectal exam done, shelli. well. cc4 23:02 CT Abd/Pelvis - IV Contrast Only In Process Unspecified. EDMS 12/19 00:56 Hepatic Function Sent. cc4 00:56 CBC with Diff Sent. cc4 00:56 Basic Metabolic Panel Sent. cc4 01:00 Pelvic exam completed per Dr. Gutierrez with specimen swabs x2 obtained \\T\\ sent to lab; cc4 reports decreasing pain of lower abdomen at present time to "6" on pain scale. 01:00 Ultrasound of abdomen completed per US tech. cc4 01:26 Transvaginal Study Probe In Process Unspecified. EDMS 02:00 Labs ordered per protocol. Drawn by ED staff. cc4 Administered Medications: 12/18 21:35 Drug: morphine 4 mg {Note: c/o lower abd pain "10" on pain scale with cc4 nausea/vomiting..} Route: IVP; Site: right antecubital; 21:35 Drug: Zofran (Ondansetron) 4 mg Route: IVP; Site: right antecubital; cc4 21:40 Drug: NS 0.9% 1000 ml Route: IV; Rate: 1000 ml; Site: right antecubital; cc4 23:55 Drug: morphine 4 mg {Note: c/o lower abd. pain "10" on pain scale..} Route: IVP; Site: cc4 right antecubital; 12/19 00:38 Drug: Rocephin (cefTRIAXone) 2 grams Route: IV; Rate: calculated rate; Site: right cc4 antecubital; 00:38 Drug: NS 0.9% 1000 ml Route: IV; Rate: 1000 ml; Site: right antecubital; cc4 03:30 Drug: morphine 4 mg Route: IVP; Site: right antecubital; cc4 Outcome: 03:24 Discharge ordered by . oscar 04:08 Patient left the ED. cc4 Signatures: Dispatcher [employer] EDMS Diaz Gutierrez MD MD pkl Munoz, Edgar, RN RN Ángela Eastman RN RN 1 Berenice Burns Christie cc4 Corrections: (The following items were deleted from the chart) 00:58 00:55 To radiology for Pelvis Complete+US.RAD.BRZ. cc4 EDMS
[2020-12-19 04:14] VITALS: O2SAT 100
[2020-12-19 04:19] VITALS: BP 107/65; TEMP 98.1
--- NOTE | 2020-12-19 08:42 | RAD REPORT ---
EXAM DESCRIPTION: US - Transvaginal Study Probe - 12/19/2020 1:26 am CLINICAL HISTORY: ABD PAINand pelvic pain, patient gives a history of right oophorectomy COMPARISON: Pelvis Complete dated 05/05/2020 TECHNIQUE: Endovaginal sonography was performed. FINDINGS: 9 millimeter nabothian cyst present in the cervix. Endometrium is 3 mm in thickness with n o endometrial mass or polyp identifiable. Endometrium-myometrium interface is normal. No myometrial m ass lesions seen. Physiologic quantity of free fluid seen in the cul de sac. Right ovary was not identified. This would match the patient's surgical history. No right adnexal mas s seen. Normal size left ovary is present. A 15 millimeter anechoic cyst is present. No adnexal mass. IMPRESSION: Endovaginal pelvic ultrasound, as detailed above, without significant or suspicious find ing.
--- NOTE | 2020-12-19 10:33 | RAD REPORT ---
EXAM DESCRIPTION: CT - Abdomen Pelvis W Contrast - 12/18/2020 11:03 pm CLINICAL HISTORY: 30 years, Female, ABD PAIN COMPARISON: 04/08/2020 TECHNIQUE: Contrast-enhanced images of the abdomen and pelvis were performed utilizing 2 mm slice th ickness at 2 mm interval reconstruction from the lung bases to the ischial tuberosities after the adm inistration of IV contrast. In addition multiplanar reformats in the coronal and sagittal plane were obtained and reviewed. This exam was performed according to our departmental dose-optimization protocol, which includes auto mated exposure control, adjustment of the mA and/or kV according to patient size and/or use of iterat oliver reconstruction technique. FINDINGS: The lung bases demonstrate to be clear. Again there is a calcification within the medial l eft pleural space on image 12/105. The liver, pancreas, spleen and adrenal glands demonstrate to be unremarkable, no focal lesions are n oted. Surgical clips within the gallbladder fossa correspond to previous cholecystectomy. There is no significant biliary duct dilatation The kidneys demonstrate normal uptake of contrast media. There is no evidence for hydronephrosis and/ or nephrolithiasis. There is a mid pole left renal cyst measuring 1.5 cm with a layering inferior manfred cification most likely corresponding to a milk of calcium on image 29/105. Grossly the unopacified stomach demonstrated presence of a surgical suture row corresponding to gastr ic bypass sleeve, small bowel and large bowel demonstrate to be within normal limits. There is no e vidence for bowel dilatation/or free air. There is significant fecal residue within the large bowel c orresponding to constipation/fecal stasis. The appendix is normal. The urinary bladder was partially distended with no gross abnormalities. The uterus demonstrate to be within normal limits. There is a left adnexa with a rim wall enhancing structure measuring 1.5 cm on axial image 71/105-69/105, with surrounding fluid corresponding to a corpus luteum cyst. The aor ta demonstrate to be unremarkable. There is no retroperitoneal lymphadenopathy. There is no evidenc e for ascites/or significant abnormal fluid collections. The rest of the soft tissue and bony structu res are within normal limits. IMPRESSION: 1.5 cm left renal cyst with a layering inferior calcification most likely corresponding to a milk of calcium. 1.5 cm left corpus luteum cyst. Status post gastric bypass sleeve. Status post cholecystectomy. Electronically signed by: Roverto Murrell MD 12/18/2020 11:35 PM CDT Due to temporary technical issues with the PACS/Fluency reporting system, reports are being signed by the in house radiologist without review as a courtesy to ensure prompt reporting. The interpreting r adiologist is fully responsible for the content of the report.
[2020-12-25 07:25] LABS: C.trachomatis RNA,TMA Not Detected (Not Detected)
== END 2020-12-19 04:08 | disposition home or self-care (01) ==
LOC: ER 20:42
DX: K59.00 Constipation, unspecified (principal); D72.829 Elevated white blood cell count, unspecified; Z88.5 Allergy status to narcotic agent
CPT/HCPCS: 85025 ×2; 80048; 36415 ×2; 81025; 80076; 87210; 81003; 83690; 87590; 87490; 74177; 76830; 96375; 96374; 99284; Q9967; J0696; J7030 ×2; J2405

== ENCOUNTER 2020-12-21 16:29 | Emergency (ER) | payer BC ==
[2020-12-21 17:53] LABS: ALT/SGPT 28 U/L (12-78); AST/SGOT 13 U/L (15-37); Albumin 3.7 g/dL (3.4-5.0); Alkaline Phosphatase 57 U/L (45-117); BUN Blood Urea Nitrogen 14 mg/dL (7-18); Bicarbonate 25 mmol/L (21-32); Bilirubin Direct < 0.1 mg/dL (0-0.2); Bilirubin Total 0.1 mg/dL (0.2-1.0); Glucose Level 93 mg/dL (74-106); Lipase 410 U/L (73-393); Potassium 4.1 mmol/L (3.5-5.1); Protein, Total 7.2 g/dL (6.4-8.2); Sodium Level 140 mmol/L (136-145)
[2020-12-21] MEDS ORDERED: FENTANYL CITR 100 MCG/2 ML ONE ×2 (17:55→19:02)
[2020-12-21] MEDS ORDERED: ONDANSETRON 4 MG/2 ML VIAL ONE (17:55)
[2020-12-21] MEDS ORDERED: KETOROLAC 30 MG/ML INJ ONE (17:56)
[2020-12-21] MEDS ORDERED: NA CHLORIDE 0.9% 1,000 ML ONE (17:56)
[2020-12-21 17:57] LABS: Absolute Lymphocytes (CBC) 1.9 K/uL (0.7-4.9); Basophils % 0.9 % (0-1.3); Hematocrit 30.9 % (36.0-45.0); Lymphocytes % 26.1 % (15.3-44.8); MPV 8.1 fL (7.6-11.3)
--- NOTE | 2020-12-21 18:03 | RAD REPORT ---
EXAM DESCRIPTION: CT - Abdomen Pelvis W Contrast - 12/21/2020 5:51 pm CLINICAL HISTORY: Abdominal pain COMPARISON: December 18, 2020 TECHNIQUE: Computed axial tomography of the abdomen pelvis was obtained. 100 cc Isovue-300 was admin istered intravenously. Oral contrast was not requested which limits evaluation of bowel. All CT scans are performed using dose optimization technique as appropriate and may include automated exposure control or mA/KV adjustment according to patient size. FINDINGS: Cholecystectomy. Postsurgical changes involve the stomach Liver, spleen, pancreas, adrenals and right kidney are unremarkable 17 millimeter cystic mass left kidney contains small amount of layering calcium. It is unchanged. . There is no evidence of diverticulitis. Normal appendix Irregularly shaped 2 centimeter left ovarian cyst with small to moderate amount of free fluid within the pelvis IMPRESSION: Irregularly shaped 2 centimeter left ovarian cyst with small to moderate amount of free fluid within the pelvis. The cyst likely has recently ruptured .
--- NOTE | 2020-12-21 18:15 | ER ---
Nurse's Notes [facility] Name: Leesa Stone Age: 30 yrs Sex: Female : 1990 Arrival Date: 12/21/2020 Time: 16:29 Bed 27 Private MD: Rojas Rivera T Diagnosis: Other ovarian cysts-ruptured Presentation: 12/21 16:34 Chief complaint: Patient states: lower abd cramping, diarrhea, and vomiting that began aa5 3-4 days ago. Pt reports being seen here and instructed to follow-up with side laster and GI doctor, pt states "I just couldn't take the pain today so I came back". Coronavirus screen: diarrhea, vomiting. Ebola Screen: Patient negative for fever greater than or equal to 101.5 degrees Fahrenheit, and additional compatible Ebola Virus Disease symptoms. Initial Sepsis Screen: Does the patient meet any 2 criteria? No. Patient's initial sepsis screen is negative. Does the patient have a suspected source of infection? No. Patient's initial sepsis screen is negative. Risk Assessment: Do you want to hurt yourself or someone else? Patient reports no desire to harm self or others. Onset of symptoms was December 2020. 16:34 Method Of Arrival: Ambulatory aa5 16:34 Acuity: JAVIER 3 aa5 Triage Assessment: 18:46 General: Appears in no apparent distress. iw Historical: - Allergies: 16:35 HYDROCODONE; aa5 - PMHx: 16:35 ADD/ADHD; Anxiety; insomnia; aa5 - PSHx: 16:35 section; ovary removed; tummy tuck; aa5 - Immunization history:: Client reports receiving the 2nd dose of the Covid vaccine. - Social history:: Smoking status: Patient denies any tobacco usage or history of. Screenin:07 Abuse screen: Denies threats or abuse. Denies injuries from another. Nutritional aj2 screening: No deficits noted. Tuberculosis screening: No symptoms or risk factors identified. Fall Risk None identified. Assessment: 17:07 Pain: Complains of pain in suprapubic area Pain does not radiate. Pain currently is 10 aj2 out of 10 on a pain scale. Quality of pain is described as crampy, sharp, Pain began 1 day ago. Is continuous, Alleviated by nothing. Aggravated by increased activity, repositioning. GI: Abdomen is flat. Vital Signs: 16:36 BP 120 / 74; Pulse 90; Resp 18 S; Temp 97.2(TE); Pulse Ox 100% on R/A; Weight 74.84 kg aa5 (R); Height 5 ft. 1 in. (154.94 cm) (R); 17:07 BP 109 / 61; Pulse 108; Resp 18; Temp 98.2; Pulse Ox 100% ; aj2 18:45 BP 105 / 62; Pulse 89; Resp 16; Pulse Ox 98% on R/A; iw 16:36 Body Mass Index 31.18 (74.84 kg, 154.94 cm) aa5 ED Course: 16:29 Patient arrived in ED. am2 16:29 Rojas Rivera MD is Private Physician. am2 16:34 Arm band placed on. aa5 16:35 Triage completed. aa5 16:59 Darinel Lizarraga NP is PHCP. pm1 16:59 Yuri Mattehw MD is Attending Physician. pm1 17:00 PHCP role handed off by Darinel Lizarraga NP kb 17:00 Clarita Carroll FNP-C is PHCP. kb 17:06 Alexis Roberson is Primary Nurse. aj2 17:07 Appears tearful. aj2 17:07 Patient has correct armband on for positive identification. aj2 17:07 No provider procedures requiring assistance completed. Patient did not have IV access aj2 during this emergency room visit. 17:23 Basic Metabolic Panel Sent. aj2 17:23 CBC with Diff Sent. aj2 17:23 Hepatic Function Sent. aj2 17:23 Lipase Sent. aj2 17:51 CT Abd/Pelvis - IV Contrast Only In Process Unspecified. EDMS 18:45 IV discontinued, intact, bleeding controlled, No redness/swelling at site. Pressure iw dressing applied. Administered Medications: 17:35 Drug: Ketorolac 15 mg Route: IVP; Site: right antecubital; aj2 18:44 Follow up: Response: No adverse reaction iw 17:36 Drug: Zofran (Ondansetron) 4 mg Route: IVP; Site: right antecubital; aj2 18:00 Follow up: Response: No adverse reaction iw 17:36 Drug: NS 0.9% 1000 ml Route: IV; Rate: 1000 ml; Site: right antecubital; aj2 18:30 Follow up: IV Status: Completed infusion iw 17:36 Drug: fentaNYL (PF) 25 mcg Route: IVP; Site: right antecubital; aj2 18:00 Follow up: Response: No adverse reaction iw 18:36 Drug: fentaNYL (PF) 25 mcg Route: IVP; Site: right antecubital; iw 18:45 Follow up: Response: No adverse reaction iw Outcome: 18:15 Discharge ordered by . william 18:45 Discharged to home ambulatory. iw 18:45 Condition: good 18:45 Discharge instructions given to patient, Instructed on discharge instructions, follow up and referral plans. medication usage, Demonstrated understanding of instructions, follow-up care, medications, Prescriptions given X 1. 18:46 Patient left the ED. iw Signatures: Dispatcher [employer] EDMS Clarita Carroll, DEPENDENCY DIRECTOR-C DEPENDENCY DIRECTOR-CkAbby Richmond RN RN iw Renee Daly RN RN aa5 Darinel Lizarraga NP LABOR COMMISSIONER pm1 Cris Angela am2 Alexis Roberson aj2
--- NOTE | 2020-12-21 18:15 | EDPHYS ---
Physician Documentation [facility] Name: Leesa Stone Age: 30 yrs Sex: Female : 1990 Arrival Date: 12/21/2020 Time: 16:29 Bed 27 Private MD: Rojas Rivera T ED Physician Yuri Matthew HPI: 12/21 18:24 This 30 yrs old Female presents to ER via Ambulatory with complaints of kb Abdominal Pain. 18:24 The patient presents with abdominal pain in the lower abdomen. kb 18:24 Onset: The symptoms/episode began/occurred 3 day(s) ago. The symptoms do not radiate. kb Associated signs and symptoms: none. The symptoms are described as constant. Modifying factors: The symptoms are alleviated by nothing, the symptoms are aggravated by nothing. Severity of pain: At its worst the pain was moderate in the emergency department the pain is unchanged. The patient has not experienced similar symptoms in the past. The patient has been recently seen at the [facility] Emergency Department, this week, for similar complaints. 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 States she was planning on calling tomorrow to set up appt, but the pain because worse today so she came back. Historical: - Allergies: 16:35 HYDROCODONE; aa5 - PMHx: 16:35 ADD/ADHD; Anxiety; insomnia; aa5 - PSHx: 16:35 section; ovary removed; tummy tuck; aa5 - Immunization history:: Client reports receiving the 2nd dose of the Covid vaccine. - Social history:: Smoking status: Patient denies any tobacco usage or history of. ROS: 18:23 Constitutional: Negative for fever, chills, and weight loss. kb 18:23 Abdomen/GI: Positive for abdominal pain, Negative for nausea, vomiting, and diarrhea. 18:23 All other systems are negative. Exam: 18:24 Constitutional: This is a well developed, well nourished patient who is awake, alert, kb and in no acute distress. Head/Face: Normocephalic, atraumatic. ENT: Moist Mucous membranes Respiratory: Respirations even and unlabored. No increased work of breathing, no retractions or nasal flaring. Skin: Warm, dry with normal turgor. Normal color. MS/ Extremity: Pulses equal, no cyanosis. Neurovascular intact. Full, normal range of motion. Neuro: Awake and alert, GCS 15, oriented to person, place, time, and situation. Moves all extremities. Normal gait. Psych: Awake, alert, with orientation to person, place and time. Behavior, mood, and affect are within normal limits. 18:24 Abdomen/GI: Inspection: abdomen appears normal, Bowel sounds: normal, in all quadrants, Palpation: soft, in all quadrants, mild abdominal tenderness, in the left lower quadrant, moderate abdominal tenderness, in the right lower quadrant. Vital Signs: 16:36 BP 120 / 74; Pulse 90; Resp 18 S; Temp 97.2(TE); Pulse Ox 100% on R/A; Weight 74.84 kg aa5 (R); Height 5 ft. 1 in. (154.94 cm) (R); 17:07 BP 109 / 61; Pulse 108; Resp 18; Temp 98.2; Pulse Ox 100% ; aj2 18:45 BP 105 / 62; Pulse 89; Resp 16; Pulse Ox 98% on R/A; iw 16:36 Body Mass Index 31.18 (74.84 kg, 154.94 cm) aa5 MDM: 17:00 Patient medically screened. kb 18:22 Data reviewed: vital signs, nurses notes. Data interpreted: Pulse oximetry: on room air kb is 100 %. Interpretation: normal. Counseling: I had a detailed discussion with the patient and/or guardian regarding: the historical points, exam findings, and any diagnostic results supporting the discharge/admit diagnosis, lab results, radiology results, the need for outpatient follow up, an OB/Gyne specialist, to return to the emergency department if symptoms worsen or persist or if there are any questions or concerns that arise at home. 12/21 17:04 Order name: Basic Metabolic Panel; Complete Time: 17:58 kb 12/21 17:04 Order name: CBC with Diff; Complete Time: 18:01 kb 12/21 17:04 Order name: Hepatic Function; Complete Time: 17:58 kb 12/21 17:04 Order name: Lipase; Complete Time: 17:58 kb 12/21 17:04 Order name: CT Abd/Pelvis - IV Contrast Only; Complete Time: 18:04 kb 12/21 17:04 Order name: IV Saline Lock; Complete Time: 17:22 kb 12/21 17:04 Order name: Labs collected and sent; Complete Time: 17:23 kb Administered Medications: 17:35 Drug: Ketorolac 15 mg Route: IVP; Site: right antecubital; aj2 18:44 Follow up: Response: No adverse reaction iw 17:36 Drug: Zofran (Ondansetron) 4 mg Route: IVP; Site: right antecubital; aj2 18:00 Follow up: Response: No adverse reaction iw 17:36 Drug: NS 0.9% 1000 ml Route: IV; Rate: 1000 ml; Site: right antecubital; aj2 18:30 Follow up: IV Status: Completed infusion iw 17:36 Drug: fentaNYL (PF) 25 mcg Route: IVP; Site: right antecubital; aj2 18:00 Follow up: Response: No adverse reaction iw 18:36 Drug: fentaNYL (PF) 25 mcg Route: IVP; Site: right antecubital; iw 18:45 Follow up: Response: No adverse reaction iw Disposition: 12/22 10:02 Co-signature as Attending Physician, Yuri Matthew MD I agree with the assessment and amaury plan of care. Disposition Summary: 12/21/20 18:15 Discharge Ordered Location: Home kb Condition: Stable kb Diagnosis - Other ovarian cysts - ruptured kb Followup: kb - With: Emergency Department - When: As needed - Reason: Worsening of condition Followup: kb - With: Private Physician - When: 2 - 3 days - Reason: Recheck today's complaints, Continuance of care, Re-evaluation by your physician Discharge Instructions: - Discharge Summary Sheet kb - Ovarian Cyst, [id number] kb Forms: - Medication Reconciliation Form kb - Thank You Letter kb - Antibiotic Education kb - Prescription Opioid Use kb Prescriptions: - Diclofenac Sodium 75 mg Oral tablet,delayed release (DR/EC) - take 1 tablet by ORAL route 2 times per day As needed; 30 tablet; Refills: 0, kb Product Selection Permitted Signatures: Dispatcher [employer] Clarita Wilkerson, AWILDA-C BROOM BUILDER-Yuri Burns MD MD cha Williams, Irene, RN RN iw Renee Daly, RN RN aaAlexis Acevedo aj2 Corrections: (The following items were deleted from the chart) 09/19 18:26 18:24 The patient has not recently seen a physician, william kb
[2020-12-21 19:00] VITALS: TEMP 98.2
[2020-12-21 19:02] VITALS: BP 105/62; O2SAT 98
== END 2020-12-21 18:46 | disposition home or self-care (01) ==
LOC: ER 16:29
DX: N83.292 Other ovarian cyst, left side (principal); Z88.5 Allergy status to narcotic agent
CPT/HCPCS: 96361; 85025; 80048; 36415; 80076; 83690; 74177; 96375; 96374; 99284; Q9967; J3010 ×2; J7030; J2405

== ENCOUNTER 2020-12-23 10:15 | Emergency (ER) | payer BC ==
[2020-12-23] MEDS ORDERED: DICYCLOMINE HCL 20 MG/2 ML AMP IM ONE (11:28)
[2020-12-23] MEDS ORDERED: METOCLOPRAMIDE 10 MG/2mL INJ ONE (11:28)
[2020-12-23] MEDS ORDERED: DIPHENHYDRAMINE 50 MG/ML VIAL ONE (11:28)
[2020-12-23] MEDS ORDERED: NA CHLORIDE 0.9% 1,000 ML ONE (11:28)
[2020-12-23 11:39] LABS: Absolute Lymphocytes (CBC) 1.7 K/uL (0.7-4.9); Basophils % 0.7 % (0-1.3); Hematocrit 29.8 % (36.0-45.0); Lymphocytes % 26.7 % (15.3-44.8); MPV 8.1 fL (7.6-11.3); RBC Red Blood Cell Count 3.12 M/uL (3.86-4.86)
[2020-12-23 11:54] LABS: ALT/SGPT 39 U/L (12-78); AST/SGOT 12 U/L (15-37); Albumin 3.6 g/dL (3.4-5.0); Alkaline Phosphatase 78 U/L (45-117); BUN Blood Urea Nitrogen 11 mg/dL (7-18); Bicarbonate 24 mmol/L (21-32); Bilirubin Direct < 0.1 mg/dL (0-0.2); Bilirubin Total 0.2 mg/dL (0.2-1.0); Glucose Level 94 mg/dL (74-106); Lipase 159 U/L (73-393); Potassium 4.1 mmol/L (3.5-5.1); Protein, Total 6.9 g/dL (6.4-8.2); Sodium Level 143 mmol/L (136-145)
--- NOTE | 2020-12-23 12:19 | ER ---
Nurse's Notes [facility] Name: Leesa Stone Age: 30 yrs Sex: Female : 1990 Arrival Date: 12/23/2020 Time: 10:18 Bed 10 Private MD: Rojas Rivera T Diagnosis: Lower abdominal pain, unspecified Presentation: 12/23 10:38 Chief complaint: Patient states: Lower abd pain continues since 2 visits here last week ll1 for the same. Sent in by Dr. Gu for eval after sudden, sever pain this morning after diarrhea stool. Coronavirus screen: Vaccine status: Patient reports receiving the 2nd dose of the covid vaccine. Client denies travel out of the [place] in the last 14 days. At this time, the client does not indicate any symptoms associated with coronavirus-19. Ebola Screen: Patient denies travel to an Ebola-affected area in the 21 days before illness onset. Initial Sepsis Screen: Does the patient meet any 2 criteria? No. Patient's initial sepsis screen is negative. Does the patient have a suspected source of infection? Yes: Acute abdominal pain. Risk Assessment: Do you want to hurt yourself or someone else? Patient reports no desire to harm self or others. Onset of symptoms was December 17, 2020. 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 - Social history:: Smoking status: Patient denies any tobacco usage or history of. Screenin:28 Abuse screen: Denies threats or abuse. Nutritional screening: No deficits noted. ap3 Tuberculosis screening: No symptoms or risk factors identified. Fall Risk None identified. Assessment: 11:26 General: Appears in no apparent distress. uncomfortable, Behavior is cooperative, ap3 anxious, restless. Pain: Complains of pain in suprapubic area, right lower quadrant and left lower quadrant. Neuro: Level of Consciousness is awake, alert, obeys commands, Oriented to person, place, time, situation, Appropriate for age Moves all extremities. Gait is steady, Speech is normal. Cardiovascular: Denies chest pain, shortness of breath. Respiratory: Airway is patent Respiratory effort is even, unlabored, Respiratory pattern is regular, symmetrical. GI: Bowel sounds present X 4 quads. Abd is soft X 4 quads. : No signs and/or symptoms were reported regarding the genitourinary system. Vital Signs: 10:38 BP 124 / 79; Pulse 79; Resp 18; Temp 98.6; Pulse Ox 100% ; Weight 74.84 kg; Height 5 ll1 ft. 1 in. (154.94 cm); Pain 10/10; 12:27 BP 98 / 66; Pulse 60; Resp 20; Pulse Ox 98% ; vg1 10:38 Body Mass Index 31.18 (74.84 kg, 154.94 cm) ll1 ED Course: 10:18 Patient arrived in ED. mr 10:18 Rojas Rivera MD is Private Physician. mr 10:38 Arm band placed on. ll1 10:40 Triage completed. ll1 10:42 Yuri Forrester PA is PHCP. cp 10:42 Frank Ashford MD is Attending Physician. cp 10:53 Cris Shaver RN is Primary Nurse. ap3 11:00 Inserted saline lock: 20 gauge in right antecubital area, using aseptic technique. ap3 Blood collected. 11:28 Patient has correct armband on for positive identification. Bed in low position. Call ap3 light in reach. Side rails up X2. Pulse ox on. NIBP on. Door closed. Noise minimized. 12:48 No provider procedures requiring assistance completed. IV discontinued, intact, vg1 bleeding controlled, No redness/swelling at site. Pressure dressing applied. Administered Medications: 11:24 Drug: Reglan (metoCLOPramide) 10 mg Route: IVP; Site: right antecubital; ap3 12:47 Follow up: Response: No adverse reaction vg1 11:25 Drug: Benadryl (diphenhydrAMINE) 25 mg Route: IVP; Site: right antecubital; ap3 12:48 Follow up: Response: No adverse reaction vg1 11:25 Drug: Bentyl (dicyclomine) 20 mg Route: IM; Site: right gluteus; ap3 12:48 Follow up: Response: No adverse reaction vg1 11:25 Drug: NS 0.9% 1000 ml Route: IV; Rate: 1000 ml/hr; Site: right antecubital; ap3 12:47 Follow up: IV Status: Completed infusion; IV Intake: 1000ml vg1 12:15 Drug: morphine 4 mg Route: IVP; Site: right antecubital; vg1 12:47 Follow up: Response: No adverse reaction; No change in condition vg1 Intake: 12:47 IV: 1000ml; Total: 1000ml. vg1 Outcome: 12:19 Discharge ordered by MD. cp 12:48 Discharged to home ambulatory, with family. vg1 12:48 Condition: stable 12:48 Discharge instructions given to patient, Instructed on discharge instructions, follow up and referral plans. medication usage, Demonstrated understanding of instructions, follow-up care, medications, Prescriptions given X 2. 12:48 Patient left the ED. vg1 Signatures: Dorothy Fontanez Corey, PA PA cp Prokisch, Amanda, RN RN ap3 Ángela Vazquez RN RN vg1 Sergio Crandall RN RN ll1
--- NOTE | 2020-12-23 12:19 | EDPHYS ---
Physician Documentation [facility] Name: Leesa Stone Age: 30 yrs Sex: Female : 1990 Arrival Date: 12/23/2020 Time: 10:18 Bed 10 Private MD: Rojas Rivera T ED Physician Frank Ashford HPI: 12/23 10:50 This 30 yrs old Female presents to ER via Ambulatory with complaints of cp Abdominal Pain, Diarrhea. 10:50 The patient presents with abdominal pain in the lower abdomen. Associated signs and cp symptoms: Pertinent positives: 1 episode of diarrhea. 10:50 Onset: The symptoms/episode began/occurred suddenly, this morning. cp 10:50 The symptoms do not radiate. The symptoms are described as sharp. cp 10:50 Severity of pain: in the emergency department the pain is unchanged despite home cp interventions. 10:53 The records show patient was seen here in the emergency department on 12/19/2020 and cp 12/21/2020 for similar complaints of abdominal pain. At those visits patient each had CT of the abdomen that was negative for any surgical findings. Patient also had an ultrasound at previous visit on 12-19-2020 that was negative for significant findings. 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 - Social history:: Smoking status: Patient denies any tobacco usage or history of. ROS: 11:00 Constitutional: Negative for body aches, chills, fever, poor PO intake. cp 11:00 Eyes: Negative for injury, pain, redness, and discharge. cp 11:00 ENT: Negative for ear pain, sore throat, difficulty swallowing, difficulty handling secretions. 11:00 Cardiovascular: Negative for chest pain. 11:00 Respiratory: Negative for cough, shortness of breath, wheezing. 11:00 Abdomen/GI: Positive for abdominal pain, nausea, vomiting, diarrhea, of the lower abdomen, Negative for constipation, black/tarry stool, rectal bleeding. Exam: 11:05 Constitutional: The patient appears in no acute distress, alert, awake, non-toxic, well cp developed, well nourished, uncomfortable. 11:05 Head/Face: Normocephalic, atraumatic. cp 11:05 Eyes: Periorbital structures: appear normal, Conjunctiva: normal, no exudate, no injection, Sclera: no appreciated abnormality, Lids and lashes: appear normal, bilaterally. 11:05 ENT: External ear(s): are unremarkable, Nose: is normal, Posterior pharynx: Airway: no evidence of obstruction, patent. 11:05 Chest/axilla: Inspection: normal. 11:05 Cardiovascular: Rate: normal, Rhythm: regular. 11:05 Respiratory: the patient does not display signs of respiratory distress, Respirations: normal, no use of accessory muscles, no retractions, labored breathing, is not present, Breath sounds: are clear throughout, no decreased breath sounds, no stridor, no wheezing. 11:05 Abdomen/GI: Inspection: abdomen appears normal, Bowel sounds: active, all quadrants, Palpation: soft, in all quadrants, severe abdominal tenderness, in the right lower quadrant and left lower quadrant, rebound tenderness, is not appreciated, voluntary guarding, is elicited in the right lower quadrant and left lower quadrant. Vital Signs: 10:38 BP 124 / 79; Pulse 79; Resp 18; Temp 98.6; Pulse Ox 100% ; Weight 74.84 kg; Height 5 ll1 ft. 1 in. (154.94 cm); Pain 10/10; 12:27 BP 98 / 66; Pulse 60; Resp 20; Pulse Ox 98% ; vg1 10:38 Body Mass Index 31.18 (74.84 kg, 154.94 cm) ll1 MDM: 10:43 Patient medically screened. cp 11:00 Differential diagnosis: appendicitis, bowel obstruction, gastritis, non-specific abd cp pain, Ovarian Torsion, Pelvic Inflammatory Disease, Pyelonephritis, Ureterolithiasis, urinary tract infection, chronic pain. 12:19 Data reviewed: vital signs, nurses notes, old medical records, notes, lab results, cp radiology results from previous 2 visits lab test result(s). 12:19 Counseling: I had a detailed discussion with the patient and/or guardian regarding: the cp historical points, exam findings, and any diagnostic results supporting the discharge/admit diagnosis, lab results, radiology results, the need for outpatient follow up, a family practitioner, to return to the emergency department if symptoms worsen or persist or if there are any questions or concerns that arise at home. Special discussion: Based on the patient's Hx, exam, and Dx evaluation, there is no indication for emergent surgery or inpatient Tx. It is understood by the patient/guardian that if the Sx's persist or worsen they need to return immediately for re-evaluation. ED course: VSS. Labs reviewed and negative for significant findings. Will discharge to home for continued monitoring. 12/23 10:44 Order name: Basic Metabolic Panel 12/23 10:44 Order name: CBC with Diff; Complete Time: 11:59 cp 12/23 11:59 Interpretation: Normal except: RBC 3.12; HGB 10.0; HCT 29.8; RDW 16.1. cp 12/23 10:44 Order name: Hepatic Function 12/23 10:44 Order name: Lipase 12/23 10:45 Order name: Basic Metabolic Panel; Complete Time: 11:59 EDMS 12/23 11:59 Interpretation: Normal except: CL 111. cp 12/23 10:45 Order name: Liver (Hepatic) Function; Complete Time: 11:59 EDMS 12/23 10:44 Order name: IV Saline Lock; Complete Time: 11:25 cp 12/23 10:44 Order name: Labs collected and sent; Complete Time: 11:41 cp 12/23 10:45 Order name: Lipase; Complete Time: 11:59 EDMS Administered Medications: 11:24 Drug: Reglan (metoCLOPramide) 10 mg Route: IVP; Site: right antecubital; ap3 12:47 Follow up: Response: No adverse reaction vg1 11:25 Drug: Benadryl (diphenhydrAMINE) 25 mg Route: IVP; Site: right antecubital; ap3 12:48 Follow up: Response: No adverse reaction vg1 11:25 Drug: Bentyl (dicyclomine) 20 mg Route: IM; Site: right gluteus; ap3 12:48 Follow up: Response: No adverse reaction vg1 11:25 Drug: NS 0.9% 1000 ml Route: IV; Rate: 1000 ml/hr; Site: right antecubital; ap3 12:47 Follow up: IV Status: Completed infusion; IV Intake: 1000ml vg1 12:15 Drug: morphine 4 mg Route: IVP; Site: right antecubital; vg1 12:47 Follow up: Response: No adverse reaction; No change in condition vg1 Disposition: 17:45 Co-signature as Attending Physician, Frank Ashford MD I agree with the assessment and rn plan of care. Attestation: The patient's history, exam findings, diagnostics, and a summary of any interventions or procedures was reviewed in detail with Yuri OJEDA. Disposition Summary: 12/23/20 12:19 Discharge Ordered Location: Home cp Problem: an ongoing problem cp Symptoms: have improved cp Condition: Stable cp Diagnosis - Lower abdominal pain, unspecified cp Followup: cp - With: Private Physician - When: 1 - 2 days - Reason: Recheck today's complaints Discharge Instructions: - Discharge Summary Sheet cp - Abdominal Pain, Adult cp Forms: - Medication Reconciliation Form cp - Thank You Letter cp - Antibiotic Education cp - Prescription Opioid Use cp Prescriptions: - Zofran 4 mg Oral Tablet - take 1 tablet by ORAL route every 12 hours As needed; 20 tablet; Refills: 0, cp Product Selection Permitted - dicyclomine 20 mg Oral Tablet - take 1 tablet by ORAL route 4 times per day As needed; 30 tablet; Refills: 0, cp Product Selection Permitted Signatures: Dispatcher [employer] Frank Trent MD MD rn Page, Corey, PA PA cp Cris Shaver, RN RN ap3 Ángela Vazquez RN RN vg1 Sergio Crandall RN RN ll1
[2020-12-23] MEDS ORDERED: MORPHINE 4 MG/ML SYR ONE (12:36)
[2020-12-23 14:00] VITALS: TEMP 98.6
[2020-12-23 14:01] VITALS: BP 98/66; O2SAT 98
== END 2020-12-23 12:48 | disposition home or self-care (01) ==
LOC: ER 10:15
DX: R10.30 Lower abdominal pain, unspecified (principal); Z88.5 Allergy status to narcotic agent
CPT/HCPCS: 96361; 85025; 80048; 36415; 80076; 83690; 96375; 96372; 96374; 99284; J2765; J0500; J1200; J7030

== ENCOUNTER 2021-07-23 17:16 | Emergency (ER) | payer BC ==
--- OUTSIDE RECORDS SUMMARY | 2021-07-23 17:22 | XMS REPORT | Continuity of Care Document ---
:1990 Author Organization [facility] t Address [address] [place] [address] Care Team Providers Name Role Phone LEE SILVA Primary Care Physician Unavailable Vonda SIMS Attending Clinician Unavailable Only, Db Test Attending Clinician Unavailable Prosper ALDRIDGE Attending Clinician PROSPER Attending Clinician Unavailable Lee Silva Attending Clinician Aline KAISER, B Attending Clinician DR DAMI Attending Clinician Unavailable DR DAMI Admitting Clinician Unavailable Payers Payer Name Policy Type Policy Number Effective Date Expiration Date S ource Problems Condition Condition Condition Status Onset Resolution Last Treating Co mments Source Name Details Category Date Date Treatment Clinician Date Disease Active 2008-04 Overview: Un darian delivery delivery 05-07 Formattin ity of delivered delivered 00:00: g of this [place] 00 note Medical might be Branch different from the original. ICD10 Diagnosis Term Import Coordinator Utility Encounter Encounter Disease Active 2008-04 Overview: Univers for for 05-07 Formattin ity of sterilizat sterilizat 00:00: g of this [place] ion ion 00 note Medical might be Branch different from the original. ICD10 Diagnosis Term Import Coordinator Utility Localized Localized Diagnosis Active C HI St [...] ents Source Name Type Date Date Clinician NO KNOWN Drug Active Univers ALLERGIE Class ity of S [facility] codeine Adverse Active nausea and [facility] Reaction vomiting [facility] Social History Social Habit Start Date Stop Date Quantity Comments Source Exposure to Not sure [facility] SARS-CoV-2 (event) [facility] Sex Assigned At [birth year] [facility] 00:00:00 00:00:00 [facility] Smoking Status Start Date Stop Date Source Unknown if ever smoked [facility] Medications Ordered Filled Start Stop Current Ordering Indication Dosage Frequency Signature Comments Components Source Medication Medication Date Date Medication? Clinician (SIG) Name Name No known 2020-04 No Univers medications 2-29 ity of 09:48: [address] No known 2020-04 No Univers medications 2-29 ity of 09:48: [address] No known 2020-04 No Univers medications 2-29 ity of 09:48: [address] HYDROcodone 2020- No 1{tbl} 1 tablet, Univers -acetaminop 12-24 Oral, ity of hen (NORCO 00:15: 23:30 ONCE, 1 Kishore as 5) 5-325 mg 00 :00 dose, On Medi manfred tablet 1 Tue Branch tablet 12/23/20 at 1915, JOSE MANUEL amoxicillin 2020- No 1{tbl} 1 tablet, Univers -clavulanat 12-24 Oral, ity of e 00:00: 23:29 ONCE, 1 [place] (AUGMENTIN) 00 :00 dose, On Medi manfred 875-125 mg Tue Branch per tablet 12/23/20 at 1 tablet 1900, Routine
Reason for Anti-Infec tive: Empiric Therapy for Suspected Infection< br>Empiric Therapy Site: Abdominal< br>Duratio n of therapy: 72 hours ketorolac 2020- No 15mg 15 mg, Unive rs (TORADOL) 12-23 Slow IV ity of injection 23:30: 22:28 Push, [place] 15 mg 00 :00 ONCE, 1 Medical dose, On Branch [facility] 12/23/20 at 1830, JOSE MANUEL
[facility] Restricted medication : CAPRICE RUSSELL ondansetron 2020- No 4mg 4 mg, Slow Univers (ZOFRAN 12-23 IV Push, ity of (PF)) 21:45: 21:09 ONCE, 1 [place] injection 4 00 :00 dose, On Medi manfred mg [facility] 12/23/20 at 1645, JOSE MANUEL morpHINE 2020- No 4mg 4 mg, Slow Un darian injection 4 12-23 IV Push, ity of mg 21:45: 21:09 ONCE, 1 [place] 00 :00 dose, On Medical [facility] Branch 12/23/20 at 1645, STAT NaCl 0.9% 2020- No 1000mL at 999 Uni vers (NS) bolus 12-23 mL/hr, ity of infusion 21:45: 23:30 1,000 mL, Kishore as 1,000 mL 00 :00 IV Medical Piggyback, Branch ONCE, 1 dose, On [facility] 12/23/20 at 1645, STAT iopamidol 2020- No 100mL 100 mL, Uni vers (ISOVUE 12-23 Intravenou ity o f 370-500 mL) 21:15: 21:30 s, ONCE, 1 [place] injection 00 :00 dose, On Medica l 100 mL [facility] 12/23/20 at 1630, Routine amoxicillin 2020- No [id number] 1{tbl} Take 1 Univers -clavulanat 12-2302 tablet by it y of e 875-125 00:00: 04:59 mouth [place] mg per 00 :00 every 12 Medical tablet (twelve) Branch hours for 10 days. 2008-04 Yes Take one Unive rs VIT-IRON 2-04 tablet by ity of FUMARATE-FA 00:00: mouth [place] 65-1 MG 00 daily Medical ORAL TAB Branch DOCUSATE 2008-04 Yes Take one Unive rs CALCIUM 240 2-04 capsule by it y of MG ORAL CAP 00:00: mouth [place] 00 daily as Medical needed for Branch constipati on FERROUS 2008-04 Yes Take one Univer s SULFATE 325 2-04 tablet by ity of MG (65 MG 00:00: mouth [place] IRON) ORAL 00 twice Medical TAB daily Branch IBUPROFEN 2008-04 Yes Take one Univ ers 600 MG ORAL 2-04 tablet by ity of TAB 00:00: mouth [place] 00 every six Medical hours as Branch needed for pain HYDROCODONE 2008-04 Yes Take one Un darian -ACETAMINOP 2-04 to two ity of HEN 5-325 00:00: tablets [place] MG ORAL TAB 00 mouth Medical every six Branch hours as needed for pain Alprazolam Alprazolam Yes Zev (Schedule [facility] Amphetamine Amphetamine Yes Zev (Schedule [facility] -Dextroamph -Dextroamph [facility] II Drug) [facility] Quetiapine Quetiapine Yes Zev not [facility] Fumarate Fumarate [facility] defined [facility] Vital Signs Vital Name Observation Time Observation Value Comments Source Systolic blood 2020-12-23 22:00:00 112 mm[Hg] [facility] Diastolic blood 2020-12-23 22:00:00 75 mm[Hg] [facility] Heart rate 2020-12-23 22:00:00 63 /min [facility] Body temperature 2020-12-23 22:00:00 36.67 [facility] Respiratory rate 2020-12-23 22:00:00 18 /[facility] Oxygen saturation in 2020-12-23 22:00:00 99 /min [facility] Arterial blood by [facility] Pulse oximetry Branch Body weight 2020-12-23 19:51:00 97.977 kg [facility] Procedures Procedure Date / Time Performed Performing Clinician Dev e CT ABDOMEN PELVIS W 2020-12-23 21:23:00 Andi Mireles [facility] CONTRAST [facility] Branch LIPASE 2020-12-23 21:07:00 Andi Mireles [facility] COMP. METABOLIC PANEL 2020-12-23 21:07:00 Andi Mireles [facility] ([id number]) [facility] CBC WITH DIFF 2020-12-23 21:07:00 Andi Mireles [facility] URINALYSIS 2020-12-23 21:07:00 Andi Mireles [facility] LACTIC ACID WHOLE 2020-12-23 21:07:00 [facility] BLOOD [facility] POCT TEST 2020-12-23 21:02:00 Andi Mireles [facility] NOTICE OF PRIVACY 2020-12-23 19:45:33 Doctor Unassigned, No Univ [facility] PRACTICES Name [facility] CONSENT/REFUSAL FOR 2020-12-23 19:45:09 [facility] AND Name [facility] TREATMENT Encounters Start End Encounter Admission Attending Care Care Encounter Source Date/Time Date/Time Type Type Clinicians Facility Department ID 2021-04-02 2021-04-02 Telephone Izzy Frerari [id number] Univers 00:00:00 00:00:00 RUSTON [id number] it y of [facility] [id number] Kishore as [id number] [address] 2021-04-01 2021-04-01 Laboratory Only, Ang Db Test [facility] 1.2.8 [id number] Univers 09:45:00 10:00:00 Only Prosper Roberto [employer] [id number] ity [facility] [id number] Kishore as SAMANTHA?BLEA [id number] Mo luis [address] MEDICAL OFFICE BUILDING 2021-04-01 2021-04-01 Outpatient R PROSPER [facility] [id number] Univers 09:45:00 09:50:42 ROBERTO [facility] 2021-04-01 2021-04-01 Letter Rojas Silva [facility] [id number] Univers 00:00:00 00:00:00 (Out) [facility] [id number] i ty of [place] [id number] Kishore as SAMANTHA?BLEA [id number] Mo dic[address] MEDICAL OFFICE BUILDING 2020-12-23 2020-12-23 Emergency Aline, [facility] [id number] Univers 14:55:00 18:35:00 Andi Linn [id number] i Juanjose [id number] [facility] [id number] [facility] 084 Branch 2020-12-23 2020-12-23 Emergency X [facility] ERT [id number] Univers 14:46:00 14:46:00 ity of [facility] 2018-01-24 2018-01-24 Outpatient Efren [facility] RIVERSON[facility] 10 [id number] [facility] 00:00:00 00:00:00 [facility] 2017-11-16 2017-11-16 [facility] [id number] 16:35:00 16:35:00 [facility] 2017-11-15 2017-11-15 [facility] [id number] 08:30:00 08:30:00 t [facility] 2017-11-02 2017-11-02 [facility] [id number] 09:30:00 09:30:00 t [facility] Results Test Description Test Time Test Comments Results Result Comments Source COMP. METABOLIC PANEL (90158) 2020-12-23 21:30:08 Test Item Value Reference Range Interpretation Comme nts NA (test code = 7951006275) 138 mmol/L 135-145 K (test code = 5914640846) 3.8 mmol/L 3.5-5.0 CL (test code = 6051820479) 110 mmol/L 98-108 H CO2 TOTAL (test code = 0919103185) 23 mmol/L 23-31 AGAP (test code = 2319042713) 2-16 BUN (test code = 6322611478) 9 mg/dL 7-23 GLUCOSE (test code = 7163762435) 106 mg/dL 70-110 CREATININE (test code = 0.56 mg/dL 0.50-1.04 3270370867) TOTAL BILI (test code = 0.4 mg/dL 0.1-1.3 5797151396) CALCIUM (test code = 8974799439) 9.1 mg/dL 8.6-10.6 T PROTEIN (test code = 4708352148) 7.3 g/dL 6.3-8.2 ALBUMIN (test code = 1767546121) 4.1 g/dL 3.5-5.0 ALK PHOS (test code = 8370154729) 78 U/L 34-122 ALTv (test code = 1742-6) 33 U/L 5-35 AST(SGOT) (test code = 0958635822) 28 U/L 13-40 eGFR (test code = 0230417530) mL/min/1.73m2 AMMON (test code = AMMON) Association of Glomerular Filtration Rate (GFR) and Staging of Kidney Disease* + +-------- + ------+| GFR (mL/min/1.73 m2) ?| With Kidney Damage ?| ?Without Kidney Damage+ +-- + +| ?>90 ?| ?Stage one ?| ? Normal ?+ +------- + -------+| ?60-89 ?| ?Stage two ?| ? Decreased GFR ? + +-------- + ------+| ?30-59 ?| ?Stage three ?| ? Stage three ? + +-------- + ------+| ?15-29 ?| ?Stage four ? | ? Stage four ?+ +------- + -------+| ?<15 (or dialysis) ? ?| ?Stage five ? | ? Stage five ?+ +------- + -------+ *Each stage assumes the associated GFR level has been in effect for at least three months. ?Stages 1 to 5, with or without kidney disease, indicate chronic kidney disease. Notes: Determination of stages one and two (with eGFR >59mL/min/1.73 m2) requires estimation of kidney damage for at least three months as defined by structural or functional abnormalities of the kidney, manifested by either:Pathological abnormalities or Markers of kidney damage (including abnormalities in the composition of the blood or urine or abnormalities in imaging tests). Lab Interpretation (test code = Abnormal 76534-6) [facility] 21[facility]29:47 Test Item Value Reference Range Interpretation Comments LIPASE (test code = 5584523537) 121 U/L 0-220 Lab Interpretation (test code = Normal 99609-7) [facility] [id number] 21:20:02 Test Item Value Reference Range Interpretation Comments WBC (test code = See_Comment [Automated 6690-2) message] The sy stem which generated this result transmitted reference range : 4.30 - 11.10 10*3/?L. The reference range was not used to interpret this result as normal/abnormal . RBC (test code = See_Comment L [Automated 789-8) message] The sy stem which generated this result transmitted reference range : 3.93 - 5.25 10*6/?L. The reference range was not used to interpret this result as normal/abnormal . HGB (test code = 10.0 g/dL 11.6-15.0 L 718-7) HCT (test code = 30.3 % 35.7-45.2 L 4544-3) MCV (test code = 98.4 fL 80.6-95.5 H 787-2) MCH (test code = 32.5 pg 25.9-32.8 785-6) MCHC (test code = 33.0 g/dL 31.6-35.1 786-4) RDW-SD (test code = 54.7 fL 39.0-49.9 H 23493-0) RDW-CV (test code = 15.2 % 12.0-15.5 788-0) PLT (test code = See_Comment H [Automated 777-3) message] The sy stem which generated this result transmitted reference range : 166 - 358 10*3/ ?L. The reference r nelida was not used to interpret this result as normal/abnormal . MPV (test code = 9.8 fL 9.5-12.9 52767-2) NRBC/100 WBC (test See_Comment [Automat ed code = 4725012631) message] The system which generated this result transmitted reference range : 0.0 - 10.0 /100 WBCs. The refer ence range was not u sed to interpret th is result as normal/abnormal . NRBC x10^3 (test code <0.01 See_Comment [Auto mated = 7651609904) message] The s ystem which generated this result transmitted reference range : 10*3/?L. The reference range was not used to interpret this result as normal/abnormal . GRAN MAT (NEUT) % 57.7 % (test code = 770-8) IMM GRAN % (test code 0.30 % = 9907916986) LYMPH % (test code = 33.1 % 736-9) MONO % (test code = 5.9 % 5905-5) EOS % (test code = 2.2 % 713-8) BASO % (test code = 0.8 % 706-2) GRAN MAT x10^3(ANC) 4.27 10*3/uL 1.88-7.09 (test code = 8529374477) IMM GRAN x10^3 (test <0.03 0.00-0.06 code = 7036468733) LYMPH x10^3 (test code 2.45 10*3/uL 1.32-3.29 = 731-0) MONO x10^3 (test code 0.44 10*3/uL 0.33-0.92 = 742-7) EOS x10^3 (test code = 0.16 10*3/uL 0.03-0.39 711-2) BASO x10^3 (test code 0.06 10*3/uL 0.01-0.07 = 704-7) Lab Interpretation Abnormal (test code = 40443-6) [facility] [id number] 21:02:00 Test Item Value Reference Range Interpretation Comments POCT PREG (test code = 1605) negative On board controls acceptable with present C Line (test code = 3574) POCT PREG LOT # (test code = 3575) [id number] POCT PREG TEST DATE (test 04-03-2022 code = 3576) Lab Interpretation (test code = Normal 53289-6) [facility]"
[2021-07-23] MEDS ORDERED: HYDROMORPHONE HCL 1 MG/ML INJ ONE (17:42)
[2021-07-23] MEDS ORDERED: ONDANSETRON 4 MG (ODT) TAB ONE (17:42)
[2021-07-23] MEDS ORDERED: LIDOCAINE VISCOUS 2% SOLN 15 ML UDC ONE (18:07)
--- NOTE | 2021-07-23 18:46 | ER ---
Nurse's Notes [facility] Name: Leesa Stone Age: 31 yrs Sex: Female : 1990 Arrival Date: 07/23/2021 Time: 17:20 Bed 10 Private MD: Diagnosis: Acute serous otitis media, recurrent, right ear;Acute actinic otitis externa, right ear Presentation: 07/23 17:21 Chief complaint: Patient states: Right ear pain since 1500 today. Clear drainage ld1 leaking from pt right ear. Denies injury. Coronavirus screen: At this time, the client does not indicate any symptoms associated with coronavirus-19. Ebola Screen: No symptoms or risks identified at this time. Initial Sepsis Screen: Does the patient meet any 2 criteria? No. Patient's initial sepsis screen is negative. Does the patient have a suspected source of infection? No. Patient's initial sepsis screen is negative. Risk Assessment: Do you want to hurt yourself or someone else? Patient reports no desire to harm self or others. Onset of symptoms was July 23, 2021 at 17:22. 17:21 Method Of Arrival: EMS: [facility] ld1 17:21 Acuity: JAVIER 4 ld1 Triage Assessment: 17:22 General: Appears in no apparent distress. uncomfortable, Behavior is anxious, crying, ld1 fussy. Pain: Complains of pain in right ear Pain does not radiate. Pain currently is 9 out of 10 on a pain scale. EENT: clear drainage coming from pt right ear.. Neuro: Level of Consciousness is awake, alert, obeys commands, Oriented to person, place, time, situation. Cardiovascular: Capillary refill < 3 seconds Patient's skin is warm and dry. Respiratory: Airway is patent Respiratory effort is even, unlabored, Respiratory pattern is regular, symmetrical. GI: Abdomen is flat, non-distended. : No signs and/or symptoms were reported regarding the genitourinary system. Derm: No signs and/or symptoms reported regarding the dermatologic system. Musculoskeletal: No signs and/or symptoms reported regarding the musculoskeletal system. Historical: - Allergies: 17:22 HYDROCODONE; ld1 - PMHx: 17:22 ADD/ADHD; insomnia; Anxiety; ld1 - PSHx: 17:22 Ovary removed; section; Tummy tuck; ld1 - Immunization history:: Adult Immunizations up to date, Client reports having NOT received the Covid vaccine. - Social history:: Smoking status: Patient denies any tobacco usage or history of. Patient/guardian denies using alcohol. - Family history:: not pertinent. Screenin:24 Abuse screen: Denies threats or abuse. Denies injuries from another. Nutritional ld1 screening: No deficits noted. Tuberculosis screening: No symptoms or risk factors identified. Fall Risk None identified. Assessment: 17:24 Reassessment: see triage assessment. ld1 Vital Signs: 17:21 BP 108 / 58; Pulse 90; Resp 18; Temp 98.6(O); Pulse Ox 98% on R/A; Weight 83.91 kg; ld1 Height 5 ft. 1 in. (154.94 cm); Pain 9/10; 18:52 BP 113 / 57; Pulse 82; Resp 17; Pulse Ox 99% ; ab2 17:21 Body Mass Index 34.96 (83.91 kg, 154.94 cm) ld1 ED Course: 17:20 Patient arrived in ED. ld1 17:22 Triage completed. ld1 17:22 Arm band placed on right wrist. ld1 17:24 Patient has correct armband on for positive identification. Placed in gown. Bed in low ld1 position. Call light in reach. Side rails up X2. Pulse ox on. NIBP on. Door closed. Noise minimized. Warm blanket given. 17:24 No provider procedures requiring assistance completed. ld1 17:33 Montez Walker PA is PHCP. [facility] 17:33 Heidy Chan MD is Attending Physician. [facility] 17:42 Velvet Gutierrez RN is Primary Nurse. ld1 18:44 Regina Terry MD is Referral Physician. ma2 18:53 Patient did not have IV access during this emergency room visit. ab2 Administered Medications: 17:42 Drug: Dilaudid (HYDROmorphone) 1 mg Route: IM; Site: left deltoid; ld1 17:43 Follow up: Response: No adverse reaction ld1 17:42 Drug: Ondansetron 4 mg Route: PO; ld1 17:43 Follow up: Response: No adverse reaction ld1 18:08 Drug: Viscous Lidocaine Liquid (4 %) 10 ml Route: Mucous Membrane; ld1 Outcome: 18:45 Discharge ordered by . ma2 18:52 Discharged to home ambulatory, with family. ab2 18:52 Condition: good 18:52 Discharge instructions given to patient, Instructed on discharge instructions, follow up and referral plans. medication usage, Demonstrated understanding of instructions, follow-up care, medications, Prescriptions given X 4. 18:53 Patient left the ED. ab2 Signatures: Monetz Walker PA PA jmm Alzahri, Mohammad, MD MD ma2 Velvet Gutierrez RN RN ld1 Bienvenido Bowers ab2
--- NOTE | 2021-07-23 18:46 | EDPHYS ---
Physician Documentation [facility] Name: Leesa Stone Age: 31 yrs Sex: Female : 1990 Arrival Date: 07/23/2021 Time: 17:20 Bed 10 Private MD: ED Physician Heidy Chan HPI: 07/23 17:51 This 31 yrs old Female presents to ER via EMS with complaints of Ear Pain, Drainage ma2 From Ear. 17:51 Of a 31-year-old female has been having right sided ear pain for 2 days, today she ma2 started to have worsening pain and started to have right ear discharge, she states pain is severe, never had ear surgery or procedures in the past never had ear infection. Historical: - Allergies: 17:22 HYDROCODONE; ld1 - PMHx: 17:22 ADD/ADHD; insomnia; Anxiety; ld1 - PSHx: 17:22 Ovary removed; section; Tummy tuck; ld1 - Immunization history:: Adult Immunizations up to date, Client reports having NOT received the Covid vaccine. - Social history:: Smoking status: Patient denies any tobacco usage or history of. Patient/guardian denies using alcohol. - Family history:: not pertinent. ROS: 17:51 Constitutional: Negative for fever, chills, and weight loss. ma2 17:51 All other systems are negative. Exam: 17:51 Constitutional: This is a well developed, well nourished patient who is awake, alert, ma2 and in no acute distress. Head/Face: Normocephalic, atraumatic. Eyes: Pupils equal round and reactive to light, extra-ocular motions intact. Lids and lashes normal. Conjunctiva and sclera are non-icteric and not injected. Cornea within normal limits. Periorbital areas with no swelling, redness, or edema. ENT: Right otitis externa, with edema of external really ear canal, there is red TM. Left ear exam is unremarkable nares patent. No nasal discharge, no septal abnormalities noted. Left tympanic membrane is less normal and external auditory canal is clear. Oropharynx with no redness, swelling, or masses, exudates, or evidence of obstruction, uvula midline. Mucous membranes moist. Neck: Trachea midline, no thyromegaly or masses palpated, and no cervical lymphadenopathy. Supple, full range of motion without nuchal rigidity, or vertebral point tenderness. No Meningismus. Chest/axilla: Normal chest wall appearance and motion. Nontender with no deformity. No lesions are appreciated. Cardiovascular: Regular rate and rhythm with a normal S1 and S2. No gallops, murmurs, or rubs. Normal PMI, no JVD. No pulse deficits. Respiratory: Lungs have equal breath sounds bilaterally, clear to auscultation and percussion. No rales, rhonchi or wheezes noted. No increased work of breathing, no retractions or nasal flaring. Abdomen/GI: Soft, non-tender, with normal bowel sounds. No distension or tympany. No guarding or rebound. No evidence of tenderness throughout. Back: No spinal tenderness. No costovertebral tenderness. Full range of motion. Skin: Warm, dry with normal turgor. Normal color with no rashes, no lesions, and no evidence of cellulitis. MS/ Extremity: Pulses equal, no cyanosis. Neurovascular intact. Full, normal range of motion. Neuro: Awake and alert, GCS 15, oriented to person, place, time, and situation. Cranial nerves II-XII grossly intact. Motor strength 5/5 in all extremities. Sensory grossly intact. Cerebellar exam normal. Normal gait. Vital Signs: 17:21 BP 108 / 58; Pulse 90; Resp 18; Temp 98.6(O); Pulse Ox 98% on R/A; Weight 83.91 kg; ld1 Height 5 ft. 1 in. (154.94 cm); Pain 9/10; 18:52 BP 113 / 57; Pulse 82; Resp 17; Pulse Ox 99% ; ab2 17:21 Body Mass Index 34.96 (83.91 kg, 154.94 cm) ld1 MDM: 17:51 Patient medically screened. ma2 17:51 Differential diagnosis: otitis media, otitis externa, acute otalgia, cerumen impaction, ma2 serotympanum. Data reviewed: vital signs, nurses notes. Counseling: I had a detailed discussion with the patient and/or guardian regarding: the historical points, exam findings, and any diagnostic results supporting the discharge/admit diagnosis, the presence of at least one elevated blood pressure reading (>120/80) during this emergency department visit, the need for outpatient follow up. Response to treatment: the patient's symptoms have markedly improved after treatment. Administered Medications: 17:42 Drug: Dilaudid (HYDROmorphone) 1 mg Route: IM; Site: left deltoid; ld1 17:43 Follow up: Response: No adverse reaction ld1 17:42 Drug: Ondansetron 4 mg Route: PO; ld1 17:43 Follow up: Response: No adverse reaction ld1 18:08 Drug: Viscous Lidocaine Liquid (4 %) 10 ml Route: Mucous Membrane; ld1 Disposition Summary: 07/23/21 18:45 Discharge Ordered Location: Home ma2 Condition: Stable ma2 Diagnosis - Acute serous otitis media, recurrent, right ear ma2 - Acute actinic otitis externa, right ear ma2 Followup: ma2 - With: - When: Tomorrow - Reason: If symptoms return, Continuance of care Discharge Instructions: - Discharge Summary Sheet ma2 - Ear Drops, Adult ma2 - Otitis Media, Adult ma2 - Otitis Externa, Aykd-kb-Vena ma2 Forms: - Medication Reconciliation Form ma2 - Thank You Letter ma2 - Antibiotic Education ma2 - Prescription Opioid Use ma2 Prescriptions: - Ketorolac - take 10 milligram by ORAL route 3 times per day; 30 tablet; Refills: 0, Product ma2 Selection Permitted - Augmentin 875-125 mg Oral Tablet - take 1 tablet by ORAL route every 12 hours for 10 days; 20 tablet; Refills: 0, ma2 Product Selection Permitted - Cipro 500 mg Oral Tablet - take 1 tablet by ORAL route every 12 hours for 7 days; 14 tablet; Refills: 0, ma2 Product Selection Permitted - Medrol (Valerio) 4 mg Oral Tablets, Dose Pack - take 1 tablet by ORAL route as directed - follow package instructions; 1 ma2 packet; Refills: 0, Product Selection Permitted - Ciprodex 0.3-0.1 % Otic Drops, Suspension - instill 4 drops by OTIC route every 12 hours for 7 days , for ears ONLY; 1 ma2 Container; Refills: 0, Product Selection Permitted Signatures: Heidy Chan MD MD ma2 Velvet Gutierrez RN RN ld1
[2021-07-23 19:03] VITALS: TEMP 98.6
[2021-07-23 19:04] VITALS: BP 113/57; O2SAT 99
== END 2021-07-23 18:53 | disposition home or self-care (01) ==
LOC: ER 17:16
DX: H66.91 Otitis media, unspecified, right ear (principal); H60.511 Acute actinic otitis externa, right ear; Z88.6 Allergy status to analgesic agent; F41.9 Anxiety disorder, unspecified; F90.9 Attention-deficit hyperactivity disorder, unspecified type
CPT/HCPCS: 96372; 99284; J1170

== ENCOUNTER 2021-07-25 15:24 | Emergency (ER) | payer BC ==
--- OUTSIDE RECORDS SUMMARY | 2021-07-25 15:27 | XMS REPORT | Continuity of Care Document ---
:1990 Author Organization [facility] t Address [address] [place] [address] Care Team Providers Name Role Phone LEE [...] different from the original. ICD10 Diagnosis Term Public Aid Eligibility Assistant Utility Encounter Encounter Disease Active 2008-04 Overview: Univers for for 05-07 Formattin ity of sterilizat sterilizat 00:00: g of this [place] ion ion 00 note Medical might be Branch different from the original. ICD10 Diagnosis Term Public Aid Eligibility Assistant Utility Localized Localized Diagnosis Active C HI [...] Active Univers ALLERGIE Class ity of S [facility] codeine Adverse Active nausea and [facility] Reaction vomiting [facility] Social History Social Habit Start Date Stop Date Quantity Comments Source Exposure to Not sure [facility] SARS-CoV-2 (event) [facility] Sex Assigned At [birth year] [place] [facility] 00:00:00 00:00:00 [facility] Smoking Status Start Date Stop Date Source Unknown if ever smoked [facility] Medications Ordered Filled Start Stop Current Ordering Indication Dosage Frequency Signature Comments Components Source Medication Medication Date Date Medication? Clinician (SIG) Name Name No known 2020-04 No Univers medications 2-29 ity of 09:48: [address] No known 2020-04 No Univers medications 2-29 ity of 09:48: [address] No known 2020-04 No Univers medications 2-29 ity of 09:48: [address] HYDROcodone 2020- No 1{tbl} 1 tablet, [...] :00 ONCE, 1 Medical dose, On Branch [facility] 12/23/20 at 1830, JOSE MANUEL
[facility] Restricted medication : CAPRICE RUSSELL ondansetron 2020- No 4mg 4 mg, Slow Univers (ZOFRAN 12-23 IV Push, ity of (PF)) 21:45: 21:09 ONCE, 1 [place] injection 4 00 :00 dose, On Medi manfred mg [facility] 12/23/20 at 1645, JOSE MANUEL morpHINE 2020- No 4mg 4 mg, Slow Un darian injection 4 12-23 IV Push, ity of mg 21:45: 21:09 ONCE, 1 [place] 00 :00 dose, On Medical [facility] Branch 12/23/20 at 1645, STAT NaCl 0.9% 2020- No 1000mL at 999 Uni vers (NS) bolus 12-23 mL/hr, ity of infusion 21:45: 23:30 1,000 mL, Kishore as 1,000 mL 00 :00 IV Medical Piggyback, Branch ONCE, 1 dose, On [facility] 12/23/20 at 1645, STAT iopamidol 2020- No 100mL 100 mL, Uni vers (ISOVUE 12-23 Intravenou ity o f 370-500 mL) 21:15: 21:30 s, ONCE, 1 [place] injection 00 :00 dose, On Medica l 100 mL [facility] 12/23/20 at 1630, Routine amoxicillin 2020- No [id number] 1{tbl} Take 1 Univers -clavulanat 12-2302 tablet [...] [facility] IV Drug) [facility] Amphetamine Amphetamine Yes Zev (Schedule [facility] -Dextroamph -Dextroamph Mcdonough II Drug) [facility] Quetiapine Quetiapine Yes Zev not [facility] Fumarate Fumarate Mcdonough defined [facility] Vital Signs Vital Name Observation Time Observation Value Comments Source Systolic blood 2020-12-23 22:00:00 112 mm[Hg] [facility] Diastolic blood 2020-12-23 22:00:00 75 mm[Hg] [facility] Heart rate 2020-12-23 22:00:00 63 /min [facility] Body temperature 2020-12-23 22:00:00 36.67 Roseann [facility] Respiratory rate 2020-12-23 22:00:00 18 /min [facility] Oxygen saturation in 2020-12-23 22:00:00 99 /min [facility] Arterial blood by [facility] Pulse oximetry Branch Body weight 2020-12-23 19:51:00 97.977 kg [facility] Procedures Procedure Date / Time Performed Performing Clinician Dev e CT ABDOMEN PELVIS W 2020-12-23 21:23:00 Andi Mireles [facility] CONTRAST [facility] Branch LIPASE 2020-12-23 21:07:00 Andi Mireles [facility] COMP. METABOLIC PANEL 2020-12-23 21:07:00 Andi Mireles [facility] ([id number]) [facility] CBC WITH DIFF 2020-12-23 21:07:00 Andi Mireles [facility] URINALYSIS 2020-12-23 21:07:00 Andi Mireles [facility] LACTIC ACID WHOLE 2020-12-23 21:07:00 [facility] BLOOD [facility] POCT TEST 2020-12-23 21:02:00 Andi Mireles [facility] NOTICE OF PRIVACY 2020-12-23 19:45:33 Doctor Unassigned, No Univ [facility] PRACTICES Name [facility] CONSENT/REFUSAL FOR 2020-12-23 19:45:09 Doctor Unassigned, No [facility] AND Name [facility] TREATMENT Encounters Start End Encounter Admission Attending Care Care Encounter Source Date/Time Date/Time Type Type Clinicians Facility Department ID 2021-04-02 2021-04-02 Telephone Izzy Ferrari [id number] Univers 00:00:00 00:00:00 [place] [id number] it y of [facility] [id number] Kishore as [id number] [address] 2021-04-01 2021-04-01 Laboratory Only, Ang Db Test [facility] 1.2.8 [id number] Univers 09:45:00 10:00:00 Only Prosper Roberto [place] [id number] ity [facility] [id number] Kishore as SAMANTHA?BLEA [id number] Ak luis [address] MEDICAL OFFICE BUILDING 2021-04-01 2021-04-01 Outpatient R PROSPER [facility] [id number] Univers 09:45:00 09:50:42 ROBERTO [facility] 2021-04-01 2021-04-01 Letter Rojas Silva [facility] [id number] Univers 00:00:00 00:00:00 (Out) [facility] [id number] i ty of [place] [id number] Kishore as SAMANTHA?BLEA [id number] Ak dic[address] MEDICAL OFFICE BUILDING 2020-12-23 2020-12-23 Emergency Aline, [facility] [id number] Univers 14:55:00 18:35:00 Andi Linn [id number] i Juanjose [id number] [facility] [id number] [facility] 084 Branch 2020-12-23 2020-12-23 Emergency X [facility] ERT [id number] Univers 14:46:00 14:46:00 ity of [facility] 2018-01-24 2018-01-24 Outpatient Efren LOMAX [facility] RIVERSONYA 10 [id number] [facility] 00:00:00 00:00:00 [facility] 2017-11-16 2017-11-16 [facility] [id number] 16:35:00 16:35:00 [facility] ent Clinics 2017-11-15 2017-11-15 [facility] [id number] 08:30:00 08:30:00 t [facility] ent [employer] 2017-11-02 2017-11-02 [facility] [id number] 09:30:00 09:30:00 t [facility] [employer] Results Test Description Test Time Test Comments Results Result Comments Source COMP. METABOLIC PANEL (59255) 2020-12-23 21:30:08 Test Item Value Reference Range Interpretation Comme nts NA (test code = 3854275578) 138 mmol/L 135-145 K (test code = 0578626763) 3.8 mmol/L 3.5-5.0 CL (test code = 9024381934) 110 mmol/L 98-108 H CO2 TOTAL (test code = 8004767628) 23 mmol/L 23-31 AGAP (test code = 4464178361) 2-16 BUN (test code = 2182769220) 9 mg/dL 7-23 GLUCOSE (test code = 3903721518) 106 mg/dL 70-110 CREATININE (test code = 0.56 mg/dL 0.50-1.04 1126415925) TOTAL BILI (test code = 0.4 mg/dL 0.1-1.0 3436102819) CALCIUM (test code = 9610549556) 9.1 mg/dL 8.6-10.6 T PROTEIN (test code = 7293179693) 7.3 g/dL 6.3-8.2 ALBUMIN (test code = 7713871136) 4.1 g/dL 3.5-5.0 ALK PHOS (test code = 2476996174) 78 U/L 34-122 ALTv (test code = 1742-6) 33 U/L 5-35 AST(SGOT) (test code = 5900646976) 28 U/L 13-40 eGFR (test code = 0421217805) mL/min/1.73m2 AMMON (test code = AMMON) Association [...] tests). Lab Interpretation (test code = Abnormal 93100-9) [facility]47 Test Item Value Reference Range Interpretation Comments LIPASE (test code = 5305592652) 121 U/L 0-220 Lab Interpretation (test code = Normal 47941-2) [facility] [id number] 21:20:02 Test Item Value Reference Range Interpretation [...] (test code = 54.7 fL 39.0-49.9 H 44398-6) RDW-CV (test code = 15.2 % 12.0-15.5 788-0) PLT (test code = See_Comment H [Automated 777-3) message] The sy stem which generated this result transmitted reference range : 166 - 358 10*3/ ?L. The reference r nelida was not used to interpret this result as normal/abnormal . MPV (test code = 9.8 fL 9.5-12.9 64495-8) NRBC/100 WBC (test See_Comment [Automat ed code = 6272499506) message] The system which generated this result transmitted reference range : 0.0 - 10.0 /100 WBCs. The refer ence range was not u sed to interpret th is result as normal/abnormal . NRBC x10^3 (test code <0.01 See_Comment [Auto mated = 7313430464) message] The s ystem which generated this result transmitted reference range : 10*3/?L. The reference range was not used to interpret this result as normal/abnormal . GRAN MAT (NEUT) % 57.7 % (test code = 770-8) IMM GRAN % (test code 0.30 % = 7155160535) LYMPH % (test code = 33.1 % 736-9) MONO % (test code = 5.9 % 5905-5) EOS % (test code = 2.2 % 713-8) BASO % (test code = 0.8 % 706-2) GRAN MAT x10^3(ANC) 4.27 10*3/uL 1.88-7.09 (test code = 2629017301) IMM GRAN x10^3 (test <0.03 0.00-0.06 code = 6631551200) LYMPH x10^3 (test code 2.45 10*3/uL 1.32-3.29 = 731-0) MONO x10^3 (test code 0.44 10*3/uL 0.33-0.92 = 742-7) EOS x10^3 (test code = 0.16 10*3/uL 0.03-0.39 711-2) BASO x10^3 (test code 0.06 10*3/uL 0.01-0.07 = 704-7) Lab Interpretation Abnormal (test code = 29349-9) [facility] [id number] 21:02:00 Test Item Value Reference Range Interpretation Comments POCT PREG (test code = 1605) negative On board controls acceptable with present C Line (test code = 3574) POCT PREG LOT # (test code = 3575) [id number] POCT PREG TEST DATE (test 04-03-2022 code = 3576) Lab Interpretation (test code = Normal 58417-1) [facility]"
[2021-07-25 16:14] LABS: Urine Blood Trace-intact (Negative); Urine Glucose Negative (Negative); Urine Protein Negative (Negative)
[2021-07-25 16:17] LABS: Absolute Lymphocytes (CBC) 1.3 K/uL (0.7-4.9); Hematocrit 32.5 % (36.0-45.0); MPV 7.2 fL (7.6-11.3); RBC Red Blood Cell Count 3.27 M/uL (3.86-4.86)
[2021-07-25] MEDS ORDERED: MORPHINE 4 MG/ML SYR ONE ×2 (16:17→17:56)
[2021-07-25] MEDS ORDERED: ONDANSETRON 4 MG/2 ML VIAL ONE (16:17)
[2021-07-25] MEDS ORDERED: NA CHLORIDE 0.9% 1,000 ML ONE (16:17)
[2021-07-25 16:34] LABS: Albumin 3.7 g/dL (3.4-5.0); Bilirubin Total 0.3 mg/dL (0.2-1.0); Potassium 4.1 mmol/L (3.5-5.1); Protein, Total 7.3 g/dL (6.4-8.2)
--- NOTE | 2021-07-25 16:45 | RAD REPORT ---
EXAM DESCRIPTION: CTAbdomen Pelvis W Contrast - 07/25/2021 4:38 pm CLINICAL HISTORY: Abdominal pain. LLQ abdominal pain COMPARISON: Abdomen Pelvis W Contrast dated 01/14/2021; Abdomen Pelvis W Contrast dated ; Abdomen Pelvis W Contrast dated 12/18/2020 TECHNIQUE: Biphasic CT imaging of the abdomen and pelvis was performed with 100 ml non-ionic IV cont rast. All CT scans are performed using dose optimization technique as appropriate and may include automated exposure control or mA/KV adjustment according to patient size. FINDINGS: The lung bases are clear.Postsurgical changes about the stomach. Cholecystectomy. The liver, spleen, pancreas, adrenal glands and right kidney are within normal limits. 19 mm caliceal diverticulum containing a small stone suspected lateral left kidney. No bowel obstruction, free air, free fluid or abscess. The appendix is normal. No evidence of signi ficant lymphadenopathy. 3.5 cm left ovarian cyst. No suspicious bony findings. IMPRESSION: No acute intra-abdominal or pelvic finding. 19 mm caliceal diverticulum on the left containing a small calculus. 3.5 cm left ovarian cyst.
[2021-07-25] MEDS ORDERED: KETOROLAC 30 MG/ML INJ ONE (17:56)
--- NOTE | 2021-07-25 18:56 | RAD REPORT ---
EXAM DESCRIPTION: US - Transvaginal Study Probe - 07/25/2021 6:26 pm CLINICAL HISTORY: LLQ pain Pelvic pain. COMPARISON: Transvaginal Study Probe dated 12/19/2020; TRANSVAGINAL STUDY PROBE dated 01/06/2008 FINDINGS: The uterus is normal in size, shape and echotexture. The uterus measures 9.8 x 4.5 x 3.7 c m. The endometrial stripe measures 5 mm, normal. Right ovary surgically absent. Left ovary contains 3 cm cyst, benign in appearance. Normal blood flow left ovary. No significant pelvic ascites. IMPRESSION: 3 cm benign-appearing left ovarian cyst.No acute findings seen.
--- NOTE | 2021-07-25 19:17 | EDPHYS ---
Physician Documentation [facility] Name: Leesa Stone Age: 31 yrs Sex: Female : 1990 Arrival Date: 07/25/2021 Time: 15:26 Bed 10 Private MD: ED Physician Heidy Chan HPI: 07/25 16:09 This 31 yrs old Female presents to ER via Ambulatory with complaints of Abdominal Pain pm1 - L Side. 16:09 The patient presents with abdominal pain in the left lower quadrant. pm1 16:09 Onset: The symptoms/episode began/occurred today. The symptoms do not radiate. pm1 Associated signs and symptoms: Pertinent negatives: nausea, vomiting, and diarrhea, chest pain, shortness of breath. The symptoms are described as sharp. Modifying factors: The symptoms are alleviated by nothing, the symptoms are aggravated by nothing. Severity of pain: in the emergency department the pain is actually worse. The patient has not experienced similar symptoms in the past. The patient has not recently seen a physician. 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 - Social history:: Smoking status: Patient denies any tobacco usage or history of. ROS: 16:09 Constitutional: Negative for fever, chills, and weight loss, Cardiovascular: Negative pm1 for chest pain, palpitations, and edema, Respiratory: Negative for shortness of breath, cough, wheezing, and pleuritic chest pain. 16:09 Back: Negative for injury and pain, : Negative for injury, bleeding, discharge, and swelling, MS/Extremity: Negative for injury and deformity, Skin: Negative for injury, rash, and discoloration, Neuro: Negative for headache, weakness, numbness, tingling, and seizure. 16:09 Abdomen/GI: Positive for abdominal pain, of the left lower quadrant, Negative for nausea, vomiting, and diarrhea. 16:09 All other systems are negative. Exam: 16:09 Constitutional: This is a well developed, well nourished patient who is awake, alert, pm1 and in no acute distress. Head/Face: Normocephalic, atraumatic. 16:09 Back: No spinal tenderness. No costovertebral tenderness. Full range of motion. Skin: Warm, dry with normal turgor. Normal color with no rashes, no lesions, and no evidence of cellulitis. MS/ Extremity: Pulses equal, no cyanosis. Neurovascular intact. Full, normal range of motion. 16:09 Cardiovascular: Exam negative for acute changes, Rate: normal, Rhythm: regular, Pulses: no pulse deficits are appreciated, Heart sounds: normal. 16:09 Respiratory: Exam negative for acute changes, respiratory distress, shortness of breath, Breath sounds: are clear throughout. 16:09 Abdomen/GI: Inspection: abdomen appears normal, Palpation: soft, in all quadrants, moderate abdominal tenderness, in the left lower quadrant. 16:09 Neuro: Exam negative for acute changes, Orientation: is normal, Mentation: is normal, Motor: is normal, moves all fours. Vital Signs: 15:50 BP 110 / 70; Pulse 86; Resp 16; Temp 98.6; Pulse Ox 100% on R/A; Weight 70.31 kg; vg1 Height 5 ft. 1 in. (154.94 cm); Pain 8/10; 17:57 BP 106 / 73; Pulse 82; Resp 20; Pulse Ox 98% on R/A; Pain 9/10; ss 15:50 Body Mass Index 29.29 (70.31 kg, 154.94 cm) vg1 MDM: 15:55 Patient medically screened. pm1 18:58 Data reviewed: vital signs. Data interpreted: Pulse oximetry: on room air is 98 %. pm1 Interpretation: normal. 18:58 Counseling: I had a detailed discussion with the patient and/or guardian regarding: the pm1 historical points, exam findings, and any diagnostic results supporting the discharge/admit diagnosis, lab results, radiology results, the need for outpatient follow up, to return to the emergency department if symptoms worsen or persist or if there are any questions or concerns that arise at home. 18:58 ED course: Patient without improvement in pain. Will get U/S to rule out torsion. pm1 19:21 ED course: PMPaware reviewed. Will discharge patient home with NSAID. Recommend patient pm1 to see PCP/DYE REEL OPERATOR HELPER for additional pain medication as needed. 07/25 16:02 Order name: CBC with Diff; Complete Time: 16:24 pm1 07/25 16:02 Order name: CMP; Complete Time: 16:42 pm1 07/25 16:02 Order name: Lipase; Complete Time: 16:42 pm1 07/25 16:02 Order name: CT Abd/Pelvis - IV Contrast Only; Complete Time: 16:47 pm1 07/25 16:15 Order name: Urine Dipstick-Ancillary; Complete Time: 16:24 EDMS 07/25 16:20 Order name: Urine --Ancillary (enter results); Complete Time: 17:21 eb 07/25 16:57 Order name: Transvaginal Study (probe); Complete Time: 18:58 pm1 07/25 16:02 Order name: IV Saline Lock; Complete Time: 16:10 pm1 07/25 16:02 Order name: Labs collected and sent; Complete Time: 16:10 pm1 07/25 16:02 Order name: Urine Dipstick-Ancillary (obtain specimen); Complete Time: 16:19 pm1 07/25 16:02 Order name: Urine Test (obtain specimen); Complete Time: 16:19 pm1 Administered Medications: 16:16 Drug: Zofran (Ondansetron) 4 mg Route: IVP; Site: right antecubital; ss 16:18 Drug: NS 0.9% 1000 ml Route: IV; Rate: 1 bolus; Site: right antecubital; ss 16:20 Drug: morphine 4 mg Route: IVP; Site: right antecubital; ss 19:17 Follow up: Response: No adverse reaction ss 17:55 Drug: Ketorolac 30 mg Route: IVP; Site: right antecubital; ss 19:17 Follow up: Response: No adverse reaction; RASS: Restless (+1) ss 17:57 Drug: morphine 4 mg Route: IVP; Site: right antecubital; ss 19:17 Follow up: Response: No adverse reaction; Pain is unchanged, physician notified; RASS: ss Restless (+1) 19:23 Drug: Dilaudid (HYDROmorphone) 1 mg Route: IVP; Site: right antecubital; vc1 19:23 Drug: Lidoderm Patch 5 % (700 mg/patch) 1 patches Route: Topical; Site: affected area; vc1 Disposition Summary: 07/25/21 19:17 Discharge Ordered Location: Home pm1 Problem: new pm1 Symptoms: have improved pm1 Condition: Stable pm1 Diagnosis - Other ovarian cysts pm1 Followup: pm1 - With: Emergency Department - When: As needed - Reason: Worsening of condition Followup: pm1 - With: Private Physician - When: 2 - 3 days - Reason: Recheck today's complaints, Continuance of care, Re-evaluation by your physician Discharge Instructions: - Discharge Summary Sheet pm1 - Ovarian Cyst pm1 Forms: - Medication Reconciliation Form pm1 - Thank You Letter pm1 - Antibiotic Education pm1 - Prescription Opioid Use pm1 - Work release form vc1 Prescriptions: - Diclofenac Sodium 75 mg Oral tablet,delayed release (DR/EC) - take 1 tablet by ORAL route 2 times per day As needed; 30 tablet; Refills: 0, pm1 Product Selection Permitted - Lidoderm 5 % Topical adhesive patch,medicated - apply 1 patch by TRANSDERMAL route once daily As needed 12 hours on and 12 pm1 hours off in a 24 hour period; 10 patch; Refills: 0, Product Selection Permitted Signatures: Dispatcher [employer] EDBessy Varma RN RN Darinel Cheung NP ADVISOR CONSULTANT pm1 Ángela Vazquez, RN RN vg1 Christen Chavarria RN RN vc1
--- NOTE | 2021-07-25 19:17 | ER ---
Nurse's Notes [facility] Name: Leesa Stone Age: 31 yrs Sex: Female : 1990 Arrival Date: 07/25/2021 Time: 15:26 Bed 10 Private MD: Diagnosis: Other ovarian cysts Presentation: 07/25 15:50 Chief complaint: Patient states: LLQ pain with diarrhea and nausea that began today vg1 around 1100. Coronavirus screen: Vaccine status: Patient reports receiving the 2nd dose of the covid vaccine. Client denies travel out of the [place] in the last 14 days. Ebola Screen: Patient denies exposure to infectious person. Patient denies travel to an Ebola-affected area in the 21 days before illness onset. Initial Sepsis Screen: Does the patient meet any 2 criteria? No. Patient's initial sepsis screen is negative. Does the patient have a suspected source of infection? No. Patient's initial sepsis screen is negative. Risk Assessment: Do you want to hurt yourself or someone else? Patient reports no desire to harm self or others. Onset of symptoms was July 25, 2021. 15:50 Method Of Arrival: Ambulatory vg1 15:50 Acuity: JAVIER 3 vg1 Triage Assessment: 15:51 General: Appears uncomfortable, Behavior is cooperative. Pain: Complains of pain in vg1 left lower quadrant Pain currently is 8 out of 10 on a pain scale. Pain began 4 hours ago. GI: Reports diarrhea, nausea. 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 - Social history:: Smoking status: Patient denies any tobacco usage or history of. Screenin:15 Abuse screen: Denies threats or abuse. Denies injuries from another. Nutritional ss screening: No deficits noted. Tuberculosis screening: Never had TB. Fall Risk None identified. Assessment: 16:15 General: Appears distressed, uncomfortable, Behavior is cooperative, anxious. Pain: ss Complains of pain in L low back Pain radiates to left lower quadrant Pain currently is 8 out of 10 on a pain scale. Quality of pain is described as sharp, stabbing, Pain began 1100 today Is continuous, Noted to be grimacing, guarding, moaning. Neuro: Level of Consciousness is awake, alert, obeys commands, Oriented to person, place, time, situation. Cardiovascular: Capillary refill < 3 seconds is sluggish in bilateral fingers. Respiratory: Airway is patent Respiratory effort is even, unlabored, Respiratory pattern is regular, symmetrical. GI: Reports nausea, Patient currently denies diarrhea, vomiting. GI: Bowel sounds present X 4 quads. Abd is soft and non tender X 4 quads. EENT: Nares are clear. Derm: Skin is intact, is healthy with good turgor, Skin is dry, Skin is pink, warm \T\ dry. normal. Musculoskeletal: Range of motion: intact in all extremities, Swelling absent. 16:25 Reassessment: Pt to CT now VIA stretcher. Warm blanket given for comfort. ss 18:05 Reassessment: US at bedside. Additional medication given as ordered. Patient appears ss uncomfortable, but is grateful. Call light within reach. Will reassess pain in 10-15 minutes. Vital Signs: 15:50 BP 110 / 70; Pulse 86; Resp 16; Temp 98.6; Pulse Ox 100% on R/A; Weight 70.31 kg; vg1 Height 5 ft. 1 in. (154.94 cm); Pain 8/10; 17:57 BP 106 / 73; Pulse 82; Resp 20; Pulse Ox 98% on R/A; Pain 9/10; ss 15:50 Body Mass Index 29.29 (70.31 kg, 154.94 cm) vg1 ED Course: 15:26 Patient arrived in ED. ds1 15:51 Triage completed. vg1 15:51 Arm band placed on. vg1 15:54 Darinel Lizarraga NP is PHCP. pm1 15:54 Heidy Chan MD is Attending Physician. pm1 16:10 Bessy Hodges, LEVI is Primary Nurse. ss 16:15 Patient has correct armband on for positive identification. Bed in low position. Call ss light in reach. 16:17 Initial lab(s) drawn, by ED staff, sent to lab. Inserted saline lock: 20 gauge in right eb antecubital area, using aseptic technique. Done by Franc heddle machine operator. 16:19 CBC with Diff Sent. eb 16:19 CMP Sent. eb 16:19 Lipase Sent. eb 16:40 CT Abd/Pelvis - IV Contrast Only In Process Unspecified. EDMS 18:28 Transvaginal Study (probe) In Process Unspecified. EDMS 19:29 Primary Nurse role handed off by Bessy Hodges, LEVI mw2 19:51 Christen Chavarria, LEVI is Primary Nurse. vc1 19:55 No provider procedures requiring assistance completed. IV discontinued, intact, vc1 bleeding controlled, No redness/swelling at site. Pressure dressing applied. Administered Medications: 16:16 Drug: Zofran (Ondansetron) 4 mg Route: IVP; Site: right antecubital; ss 16:18 Drug: NS 0.9% 1000 ml Route: IV; Rate: 1 bolus; Site: right antecubital; ss 16:20 Drug: morphine 4 mg Route: IVP; Site: right antecubital; ss 19:17 Follow up: Response: No adverse reaction ss 17:55 Drug: Ketorolac 30 mg Route: IVP; Site: right antecubital; ss 19:17 Follow up: Response: No adverse reaction; RASS: Restless (+1) ss 17:57 Drug: morphine 4 mg Route: IVP; Site: right antecubital; ss 19:17 Follow up: Response: No adverse reaction; Pain is unchanged, physician notified; RASS: ss Restless (+1) 19:23 Drug: Dilaudid (HYDROmorphone) 1 mg Route: IVP; Site: right antecubital; vc1 19:23 Drug: Lidoderm Patch 5 % (700 mg/patch) 1 patches Route: Topical; Site: affected area; vc1 Outcome: 19:17 Discharge ordered by MD. pm1 19:56 Discharged to home ambulatory. vc1 19:56 Condition: good 19:56 Discharge instructions given to patient, Instructed on discharge instructions, follow up and referral plans. medication usage, Demonstrated understanding of instructions, follow-up care, medications, Prescriptions given X 2. 19:56 Patient left the ED. vc1 Signatures: Dispatcher MedHoHelen Mckeon ds1 Bessy Hodges, RN RN ss Darinel Lizarraga, GLOBAL REGULATORY AFFAIRS MANAGER GLOBAL REGULATORY AFFAIRS MANAGER pm1 Elidia Coley mw2 Sophie Caicedo Victoria, RN RN vg1 Christen Chavarria RN RN vc1
[2021-07-25] MEDS ORDERED: HYDROMORPHONE HCL 1 MG/ML INJ ONE (19:21)
[2021-07-25] MEDS ORDERED: LIDOCAINE 4% PATCH ONE (19:21)
[2021-07-25 20:10] VITALS: TEMP 98.6
[2021-07-25 20:11] VITALS: BP 106/73; O2SAT 98
== END 2021-07-25 19:56 | disposition home or self-care (01) ==
LOC: ER 15:24
DX: N83.299 Other ovarian cyst, unspecified side (principal); F41.9 Anxiety disorder, unspecified; Z88.5 Allergy status to narcotic agent
CPT/HCPCS: 85025; 36415; 81025; 82565; 81003; 83690; 80053; 74177; 76830; 96375; 96374; 99284; Q9967; J1170; J7030; J2405

== ENCOUNTER 2021-07-28 15:35 | Emergency (ER) | payer BC ==
--- OUTSIDE RECORDS SUMMARY | 2021-07-28 15:38 | XMS REPORT | Continuity of Care Document ---
:1990 Author Organization [facility] t Address [address] [place] [address] Care Team Providers Name Role Phone LEE [...] different from the original. ICD10 Diagnosis Term Group Segment Consultant Utility Encounter Encounter Disease Active 2008-04 Overview: Univers for for 05-07 Formattin ity of sterilizat sterilizat 00:00: g of this [place] ion ion 00 note Medical might be Branch different from the original. ICD10 Diagnosis Term Group Segment Consultant Utility Localized Localized Diagnosis Active C HI [...] Active Univers ALLERGIE Class ity of S [facility] codeine Adverse Active nausea and [facility] Reaction vomiting [facility] Social History Social Habit Start Date Stop Date Quantity Comments Source Exposure to Not sure [facility] SARS-CoV-2 (event) Medica [facility] Sex Assigned At [birth year] [facility] 00:00:00 00:00:00 [facility] Smoking Status Start Date Stop Date Source Unknown if ever smoked [facility] Medications Ordered Filled Start Stop Current Ordering Indication Dosage Frequency Signature Comments Components Source Medication Medication Date Date Medication? Clinician (SIG) Name Name No known 2020-04 No Univers medications 2-29 ity of 09:48: [address] No known 2020-04 No Univers medications 2-29 ity of 09:48: [address] No known 2020-04 No Univers medications 2-29 ity of 09:48: [address] HYDROcodone 2020- No 1{tbl} 1 tablet, [...] :00 ONCE, 1 Medical dose, On Branch [facility] 12/23/20 at 1830, JOSE MANUEL
[facility] Restricted medication : CAPRICE RUSSELL ondansetron 2020- No 4mg 4 mg, Slow Univers (ZOFRAN 12-23 IV Push, ity of (PF)) 21:45: 21:09 ONCE, 1 [place] injection 4 00 :00 dose, On Medi manfred mg [facility] 12/23/20 at 1645, JOSE MANUEL morpHINE 2020- No 4mg 4 mg, Slow Un darian injection 4 12-23 IV Push, ity of mg 21:45: 21:09 ONCE, 1 [place] 00 :00 dose, On Medical [facility] Branch 12/23/20 at 1645, STAT NaCl 0.9% 2020- No 1000mL at 999 Uni vers (NS) bolus 12-23 mL/hr, ity of infusion 21:45: 23:30 1,000 mL, Kishore as 1,000 mL 00 :00 IV Medical Piggyback, Branch ONCE, 1 dose, On [facility] 12/23/20 at 1645, STAT iopamidol 2020- No 100mL 100 mL, Uni vers (ISOVUE 12-23 Intravenou ity o f 370-500 mL) 21:15: 21:30 s, ONCE, 1 [place] injection 00 :00 dose, On Medica l 100 mL [facility] 12/23/20 at 1630, Routine amoxicillin 2020- No [id number] 1{tbl} Take 1 Univers -clavulanat 12-2302 tablet [...] [facility] IV Drug) [facility] Amphetamine Amphetamine Yes Zev (Schedule [facility] -Dextroamph -Dextroamph Mcdonough II Drug) [facility] Quetiapine Quetiapine Yes Zev not [facility] Fumarate Fumarate Mcdonough defined Lucy [facility] Vital Signs Vital Name Observation Time Observation Value Comments Source Systolic blood 2020-12-23 22:00:00 112 mm[Hg] [facility] Diastolic blood 2020-12-23 22:00:00 75 mm[Hg] [facility] Heart rate 2020-12-23 22:00:00 63 /min [facility] Body temperature 2020-12-23 22:00:00 36.67 [facility] Respiratory rate 2020-12-23 22:00:00 18 /min [facility] Oxygen saturation in 2020-12-23 22:00:00 99 /min [facility] Arterial blood by [facility] Pulse oximetry Branch Body weight 2020-12-23 19:51:00 97.977 kg [facility] Procedures Procedure Date / Time Performed Performing Clinician Dev e CT ABDOMEN PELVIS W 2020-12-23 21:23:00 Andi Mireles [facility] CONTRAST [facility] LIPASE 2020-12-23 21:07:00 Andi Mireles [facility] COMP. METABOLIC PANEL 2020-12-23 21:07:00 Andi Mireles [facility] ([id number]) [facility] CBC WITH DIFF 2020-12-23 21:07:00 Andi Mireles [facility] URINALYSIS 2020-12-23 21:07:00 Andi Mireles [facility] LACTIC ACID WHOLE 2020-12-23 21:07:00 [facility] BLOOD [facility] POCT TEST 2020-12-23 21:02:00 Andi Mireles [facility] NOTICE OF PRIVACY 2020-12-23 19:45:33 Doctor Unassigned, No Univ [facility] PRACTICES Name [facility] CONSENT/REFUSAL FOR 2020-12-23 19:45:09 Doctor Unassigned, No [facility] AND Name [facility] TREATMENT Encounters Start End Encounter Admission Attending Care Care Encounter Source Date/Time Date/Time Type Type Clinicians Facility Department ID 2021-04-02 2021-04-02 Telephone Izzy Ferrari [id number] Univers 00:00:00 00:00:00 [place] [id number] it y of [facility] [id number] Kishore as [id number] [address] 2021-04-01 2021-04-01 Laboratory Only, Ang Db Test [facility] 1.2.8 [id number] [id number] Univers 09:45:00 10:00:00 Only Prosper Roberto Zymergen [id number] [facility] [id number] Kishore as SAMANTHA?BLEA [id number] Wy luis [address] MEDICAL OFFICE BUILDING 2021-04-01 2021-04-01 Outpatient R PROSPER [facility] [id number] Univers 09:45:00 09:50:42 ROBERTO [facility] 2021-04-01 2021-04-01 Letter Rojas Silva [facility] [id number] Univers 00:00:00 00:00:00 [facility] [id number] i ty of [place] [id number] Kishore as SAMANTHA?BLEA [id number] Wy dic[address] MEDICAL OFFICE BUILDING 2020-12-23 2020-12-23 Emergency Aline, [facility] [id number] Univers 14:55:00 18:35:00 Andi Linn [id number] i Juanjose 4.2.7.2.686 [facility] [id number] [facility] 084 Branch 2020-12-23 2020-12-23 Emergency X [facility] ERT [id number] Univers 14:46:00 14:46:00 ity of [facility] 2018-01-24 2018-01-24 Outpatient Efren [facility] RIVERSONYA 10 [id number] [facility] 00:00:00 00:00:00 [facility] 2017-11-16 2017-11-16 [facility] [id number] 16:35:00 16:35:00 [facility] Clinics 2017-11-15 2017-11-15 [facility] [id number] 08:30:00 08:30:00 t [facility] 2017-11-02 2017-11-02 [facility] [id number] 09:30:00 09:30:00 t [facility] Results Test Description Test Time Test Comments Results Result Comments Source COMP. METABOLIC PANEL ([id number]) 2020-12-23 21:30:08 Test Item Value Reference Range Interpretation Comme nts NA (test code = 8709706026) 138 mmol/L 135-145 K (test code = 2159268050) 3.8 mmol/L 3.5-5.0 CL (test code = 7207166023) 110 mmol/L 98-108 H CO2 TOTAL (test code = 0080842108) 23 mmol/L 23-31 AGAP (test code = 3343445514) 2-16 BUN (test code = 9714223770) 9 mg/dL 7-23 GLUCOSE (test code = 7052658332) 106 mg/dL 70-110 CREATININE (test code = 0.56 mg/dL 0.50-1.04 6307191188) TOTAL BILI (test code = 0.4 mg/dL 0.1-1.0 8430338282) CALCIUM (test code = 9341840323) 9.1 mg/dL 8.6-10.6 T PROTEIN (test code = 9572098829) 7.3 g/dL 6.3-8.2 ALBUMIN (test code = 0897896442) 4.1 g/dL 3.5-5.0 ALK PHOS (test code = 4888415824) 78 U/L 34-122 ALTv (test code = 1742-6) 33 U/L 5-35 AST(SGOT) (test code = 0867879787) 28 U/L 13-40 eGFR (test code = 5760067510) mL/min/1.73m2 AMMON (test code = AMMON) Association [...] tests). Lab Interpretation (test code = Abnormal 79060-6) [facility] 21[facility]29:47 Test Item Value Reference Range Interpretation Comments LIPASE (test code = 4502524228) 121 U/L 0-220 Lab Interpretation (test code = Normal 41038-6) [facility] WITH [id number] 21:20:02 Test Item Value Reference Range Interpretation [...] (test code = 54.7 fL 39.0-49.9 H 09835-5) RDW-CV (test code = 15.2 % 12.0-15.5 788-0) PLT (test code = See_Comment H [Automated 777-3) message] The sy stem which generated this result transmitted reference range : 166 - 358 10*3/ ?L. The reference r nelida was not used to interpret this result as normal/abnormal . MPV (test code = 9.8 fL 9.5-12.9 57248-1) NRBC/100 WBC (test See_Comment [Automat ed code = 4046673499) message] The system which generated this result transmitted reference range : 0.0 - 10.0 /100 WBCs. The refer ence range was not u sed to interpret th is result as normal/abnormal . NRBC x10^3 (test code <0.01 See_Comment [Auto mated = 0405522095) message] The s ystem which generated this result transmitted reference range : 10*3/?L. The reference range was not used to interpret this result as normal/abnormal . GRAN MAT (NEUT) % 57.7 % (test code = 770-8) IMM GRAN % (test code 0.30 % = 2240568693) LYMPH % (test code = 33.1 % 736-9) MONO % (test code = 5.9 % 5905-5) EOS % (test code = 2.2 % 713-8) BASO % (test code = 0.8 % 706-2) GRAN MAT x10^3(ANC) 4.27 10*3/uL 1.88-7.09 (test code = 2386235299) IMM GRAN x10^3 (test <0.03 0.00-0.06 code = 2242509202) LYMPH x10^3 (test code 2.45 10*3/uL 1.32-3.29 = 731-0) MONO x10^3 (test code 0.44 10*3/uL 0.33-0.92 = 742-7) EOS x10^3 (test code = 0.16 10*3/uL 0.03-0.39 711-2) BASO x10^3 (test code 0.06 10*3/uL 0.01-0.07 = 704-7) Lab Interpretation Abnormal (test code = 08918-2) [facility] [id number] 21:02:00 Test Item Value Reference Range Interpretation Comments POCT PREG (test code = 1605) negative On board controls acceptable with present C Line (test code = 3574) POCT PREG LOT # (test code = 3575) [id number] POCT PREG TEST DATE (test 04-03-2022 code = 3576) Lab Interpretation (test code = Normal 71207-8) [facility]"
[2021-07-28 16:07] LABS: Urine Blood 1+ (Negative); Urine Glucose Negative (Negative); Urine Protein Negative (Negative); Urine Specific Gravity <=1.005 (1.005-1.030)
[2021-07-28] MEDS ORDERED: LIDOCAINE 4% PATCH ONE (16:22)
[2021-07-28] MEDS ORDERED: KETOROLAC 30 MG/ML INJ ONE (16:22)
[2021-07-28 16:23] LABS: Absolute Lymphocytes (CBC) 1.8 K/uL (0.7-4.9); Hematocrit 34.1 % (36.0-45.0); Lymphocytes % 27.5 % (15.3-44.8); MPV 7.7 fL (7.6-11.3); RBC Red Blood Cell Count 3.41 M/uL (3.86-4.86)
[2021-07-28 16:31] LABS: Potassium 3.8 mmol/L (3.5-5.1)
--- NOTE | 2021-07-28 17:56 | RAD REPORT ---
EXAM DESCRIPTION: US - Transvaginal Study Probe - 07/28/2021 5:22 pm CLINICAL HISTORY: Left sided pelvic pain Pelvic pain. COMPARISON: Transvaginal Study Probe dated 07/25/2021 FINDINGS: The uterus is normal in size, shape and echotexture. The uterus measures 9.5 cm The endometrial stripe measures 2 mm, normal The right ovary is surgically absent. The left ovary has a 3.5 cm simple appearing cyst. Blood flow i s present within the left ovary. No significant pelvic ascites. Nabothian cyst noted. IMPRESSION: Blood flow present within the left ovary. Benign-appearing left ovarian cyst that does n ot require follow-up. The right ovary is surgically absent.
--- NOTE | 2021-07-28 18:00 | ER ---
Nurse's Notes [facility] Name: Leesa Stone Age: 31 yrs Sex: Female : 1990 Arrival Date: 07/28/2021 Time: 15:42 Bed 20 Private MD: Diagnosis: Abnormal uterine and vaginal bleeding, unspecified;Unspecified ovarian cyst, left side Presentation: 07/28 15:44 Chief complaint: Patient states: LMP July 11 for five days and began to bleed again on vg1 July 26 and states lower ABD pain and dark red blood with clots; also states lightheaded and nauseous. Coronavirus screen: Vaccine status: Patient reports receiving the 2nd dose of the covid vaccine. Client denies travel out of the [place] in the last 14 days. Ebola Screen: Patient denies exposure to infectious person. Patient denies travel to an Ebola-affected area in the 21 days before illness onset. Initial Sepsis Screen: Does the patient meet any 2 criteria? No. Patient's initial sepsis screen is negative. Does the patient have a suspected source of infection? No. Patient's initial sepsis screen is negative. Risk Assessment: Do you want to hurt yourself or someone else? Patient reports no desire to harm self or others. Onset of symptoms was July 26, 2021. 15:44 Method Of Arrival: Ambulatory vg1 15:44 Acuity: JAVIER 3 vg1 Triage Assessment: 15:48 General: Appears in no apparent distress. uncomfortable, Behavior is calm, cooperative. vg1 Pain: Complains of pain in left lower quadrant Pain currently is 10 out of 10 on a pain scale. Pain began 2-3 days ago. : Reports vaginal bleeding that is with clots, light flow. Historical: - Allergies: 15:48 HYDROCODONE; vg1 - Home Meds: 15:48 Seroquel Oral [Active]; vg1 - PMHx: 15:48 ADD/ADHD; Anxiety; insomnia; vg1 - PSHx: 15:48 section; Ovary removed; Tummy tuck; vg1 - Immunization history:: Client reports receiving the 2nd dose of the Covid vaccine. - Social history:: Smoking status: Patient denies any tobacco usage or history of. Screenin:47 Abuse screen: Denies threats or abuse. Denies injuries from another. Nutritional ww screening: No deficits noted. Tuberculosis screening: No symptoms or risk factors identified. Tuberculosis screening: No symptoms or risk factors identified. Fall Risk None identified. Assessment: 16:45 General: Appears uncomfortable, Behavior is anxious, restless. Pain: Complains of pain ww in left lower quadrant. Neuro: Level of Consciousness is awake, alert, obeys commands, Oriented to person, place, time, situation, Moves all extremities. Gait is steady, Speech is normal. Cardiovascular: Capillary refill Patient's skin is warm and dry. Respiratory: Airway is patent Respiratory effort is even, unlabored, Respiratory pattern is regular, symmetrical. GI: Abdomen is non-distended. GI: Abdomen is tender to palpation in left lower quadrant. : Urine is Reports vaginal bleeding that is. Derm: No signs and/or symptoms reported regarding the dermatologic system. Skin is healthy with good turgor. 17:40 Reassessment: Patient appears in no apparent distress at this time. No changes from ww previously documented assessment. Patient and/or family updated on plan of care and expected duration. Pain level reassessed. patient still moaning in pain. awaiting on ultrasound results. Vital Signs: 15:44 BP 115 / 80; Pulse 82; Resp 16; Temp 97.8; Pulse Ox 100% ; Weight 72.57 kg; Height 5 vg1 ft. 1 in. (154.94 cm); Pain 10/10; 17:40 BP 102 / 60; Pulse 52; Resp 20; Pulse Ox 99% on R/A; ww 15:44 Body Mass Index 30.23 (72.57 kg, 154.94 cm) vg1 ED Course: 15:42 Patient arrived in ED. vg1 15:48 Triage completed. vg1 15:48 Arm band placed on. vg1 15:55 Darinel Lizarraga NP is PHCP. pm1 15:55 Frank Ashford MD is Attending Physician. pm1 16:00 Initial lab(s) drawn, by ED staff, sent to lab. Urine collected: clean catch specimen, kj1 clear. Inserted saline lock: 20 gauge in right antecubital area, using aseptic technique. Blood collected. 16:14 Dari Valente, RN is Primary Nurse. ww 16:47 Patient has correct armband on for positive identification. Bed in low position. Call ww light in reach. Side rails up X 1. 17:24 Transvaginal Study (probe) In Process Unspecified. EDMS 18:43 No provider procedures requiring assistance completed. IV discontinued, bleeding ww controlled, No redness/swelling at site. Pressure dressing applied. Administered Medications: 16:23 Drug: Ketorolac 30 mg Route: IVP; Site: right antecubital; ww 16:23 Drug: Lidoderm Patch 5 % (700 mg/patch) 1 patches Route: Topical; Site: abdomen; ww 18:23 Not Given (Patient Refused): Bentyl (dicyclomine) 20 mg IM once ww 18:23 Drug: Ativan (LORazepam) 1 mg Route: IVP; Site: right antecubital; ww Outcome: 18:00 Discharge ordered by . pm1 18:43 Discharged to home ambulatory, patient left without discharge instructions ww 18:43 Condition: stable 18:43 Discharge instructions given to patient left without discharge instructions 18:43 Patient left the ED. ww Signatures: Dispatcher [employer] EDOH Darinel Lizarraga NP PUBLISHING MANAGER pm1 Izabella Carroll kj1 Ángela Vazquez, RN RN vg1 Dari Valente, LEVI RN ww
--- NOTE | 2021-07-28 18:00 | EDPHYS ---
Physician Documentation [facility] Name: Leesa Stone Age: 31 yrs Sex: Female : 1990 Arrival Date: 07/28/2021 Time: 15:42 Bed 20 Private MD: ED Physician Frank Ashford HPI: 07/28 16:09 This 31 yrs old Female presents to ER via Ambulatory with complaints of Vaginal pm1 Bleeding. 16:09 The patient presents with vaginal bleeding that is light, with clots. Onset: The pm1 symptoms/episode began/occurred 2 day(s) ago. Modifying factors: The symptoms are alleviated by nothing, the symptoms are aggravated by nothing. Associated signs and symptoms: Pertinent positives: left lower abdominal cramping, Pertinent negatives: dysuria, fever. Severity of symptoms: in the emergency department the symptoms are actually worse. The patient has been recently seen by a physician: 2 day(s) ago, seen by me in the ER for lower abdominal pain and diagnosed with left ovarian cyst. Patient presents to the ER today due to vaginal bleeding that started two days ago. Prior menses July 06. Called her operations vice president and was instructed to present to the ER for evaluation. Patient has appointment with Dr. Sun on . Historical: - Allergies: 15:48 HYDROCODONE; vg1 - Home Meds: 15:48 Seroquel Oral [Active]; vg1 - PMHx: 15:48 ADD/ADHD; Anxiety; insomnia; vg1 - PSHx: 15:48 section; Ovary removed; Tummy tuck; vg1 - Immunization history:: Client reports receiving the 2nd dose of the Covid vaccine. - Social history:: Smoking status: Patient denies any tobacco usage or history of. ROS: 16:09 Positive for vaginal bleeding, menstrual abnormality, Negative for urinary symptoms. pm1 16:09 Constitutional: Negative for fever, chills, and weight loss, Cardiovascular: Negative for chest pain, palpitations, and edema, Respiratory: Negative for shortness of breath, cough, wheezing, and pleuritic chest pain. 16:09 MS/Extremity: Negative for injury and deformity. 16:09 Skin: Negative for injury, rash, and discoloration, Neuro: Negative for headache, weakness, numbness, tingling, and seizure. 16:09 Abdomen/GI: Positive for abdominal cramps, Negative for nausea, vomiting, and diarrhea. 16:09 All other systems are negative. Exam: 16:09 Constitutional: This is a well developed, well nourished patient who is awake, alert, pm1 and in no acute distress. Head/Face: Normocephalic, atraumatic. 16:09 Back: No spinal tenderness. No costovertebral tenderness. Full range of motion. Skin: Warm, dry with normal turgor. Normal color with no rashes, no lesions, and no evidence of cellulitis. MS/ Extremity: Pulses equal, no cyanosis. Neurovascular intact. Full, normal range of motion. 16:09 Eyes: Exam is negative for acute changes, Periorbital structures: appear normal, Pupils: no acute changes, Extraocular movements: no acute changes, Conjunctiva: normal, no injection. 16:09 ENT: Exam is negative for acute changes, Mouth: no acute changes, Lips: normal, moist, Oral mucosa: normal, pink and intact, moist. 16:09 Cardiovascular: Exam negative for acute changes, Rate: normal, Rhythm: regular, Pulses: no pulse deficits are appreciated, Heart sounds: normal. 16:09 Respiratory: Exam negative for acute changes, respiratory distress, shortness of breath, Breath sounds: are clear throughout. 16:09 Abdomen/GI: Exam negative for acute changes, Inspection: abdomen appears normal, Palpation: abdomen is soft and non-tender, in all quadrants. 16:09 Neuro: Exam negative for acute changes, Orientation: is normal, Mentation: is normal, Motor: is normal, moves all fours. Vital Signs: 15:44 BP 115 / 80; Pulse 82; Resp 16; Temp 97.8; Pulse Ox 100% ; Weight 72.57 kg; Height 5 vg1 ft. 1 in. (154.94 cm); Pain 10/10; 17:40 BP 102 / 60; Pulse 52; Resp 20; Pulse Ox 99% on R/A; ww 15:44 Body Mass Index 30.23 (72.57 kg, 154.94 cm) vg1 MDM: 15:56 Patient medically screened. pm1 17:16 ED course: No torsion present in ultrasound and same sized 3.5 cm left ovarian cyst pm1 present per career technical counselor. 17:59 Data reviewed: vital signs. Data interpreted: Pulse oximetry: on room air is 99 %. pm1 Interpretation: normal. Counseling: I had a detailed discussion with the patient and/or guardian regarding: the historical points, exam findings, and any diagnostic results supporting the discharge/admit diagnosis, lab results, radiology results, the need for outpatient follow up, an OB/Gyne specialist, to return to the emergency department if symptoms worsen or persist or if there are any questions or concerns that arise at home. 07/28 16:06 Order name: CBC with Diff; Complete Time: 16:32 pm1 07/28 16:06 Order name: BMP; Complete Time: 16:32 pm1 07/28 16:06 Order name: Transvaginal Study (probe); Complete Time: 17:59 pm1 07/28 16:07 Order name: Urine Dipstick-Ancillary; Complete Time: 16:07 EDMS 07/28 16:15 Order name: Test, Serum; Complete Time: 16:47 kj1 07/28 16:06 Order name: Urine Dipstick-Ancillary (obtain specimen); Complete Time: 16:12 pm1 07/28 16:06 Order name: Urine Test (obtain specimen); Complete Time: 16:12 pm1 07/28 16:06 Order name: IV Saline Lock; Complete Time: 16:12 pm1 Administered Medications: 16:23 Drug: Ketorolac 30 mg Route: IVP; Site: right antecubital; ww 16:23 Drug: Lidoderm Patch 5 % (700 mg/patch) 1 patches Route: Topical; Site: abdomen; ww 18:23 Not Given (Patient Refused): Bentyl (dicyclomine) 20 mg IM once ww 18:23 Drug: Ativan (LORazepam) 1 mg Route: IVP; Site: right antecubital; ww Disposition: 18:49 Co-signature as Attending Physician, Frank Ashford MD. rn Disposition Summary: 07/28/21 18:00 Discharge Ordered Location: Home pm1 Problem: new pm1 Symptoms: have improved pm1 Condition: Stable pm1 Diagnosis - Abnormal uterine and vaginal bleeding, unspecified pm1 - Unspecified ovarian cyst, left side pm1 Followup: pm1 - With: Emergency Department - When: As needed - Reason: Worsening of condition Followup: pm1 - With: Private Physician - When: 2 - 3 days - Reason: Recheck today's complaints, Continuance of care, Re-evaluation by your physician Discharge Instructions: - Discharge Summary Sheet pm1 - Abnormal Uterine Bleeding pm1 - Ovarian Cyst pm1 Forms: - Medication Reconciliation Form pm1 - Thank You Letter pm1 - Antibiotic Education pm1 - Prescription Opioid Use pm1 Signatures: Dispatcher [employer] Frank Trent MD MD rn Marinas, Patrick, NP ADULT CROSSING GUARD pm1 Ángela Vazquez RN RN 1 Dari Valente RN RN ww
[2021-07-28] MEDS ORDERED: DICYCLOMINE HCL 20 MG/2 ML AMP IM ONE (18:21)
[2021-07-28] MEDS ORDERED: LORazepam 2 MG/ML VIAL ONE (18:21)
[2021-07-28 21:31] VITALS: TEMP 97.8
[2021-07-28 21:33] VITALS: BP 102/60; O2SAT 99
== END 2021-07-28 18:43 | disposition home or self-care (01) ==
LOC: ER 15:35
DX: N83.202 Unspecified ovarian cyst, left side (principal); Z88.5 Allergy status to narcotic agent
CPT/HCPCS: 36415; 76830; 80048; 81003; 84703; 85025; 96374; 96375; 99284; J0500

== ENCOUNTER 2022-01-24 12:39 | Emergency (ER) | payer BC ==
--- OUTSIDE RECORDS SUMMARY | 2022-01-24 12:46 | XMS REPORT | Continuity of Care Document ---
:1990 Author Organization [facility] t Address [address] [place] [address] Dr. Rhodes[address] [place] [id number] Care Team Providers Name Role Phone DESTINY SILVA Primary Care Physician Unavailable OPAL RUSSELL Attending Clinician Unavailable Opal Russell DO Attending Clinician Doctor Unassigned, [place] Attending Clinician Unavailable GELY LALA Attending Clinician Unavailable Gely Peace Attending Clinician Bud Chaney MD Attending Clinician VINCE PAREDES Attending Clinician Unavailable Vince Paredes DO Attending Clinician BUD CHANEY Attending Clinician Unavailable Izzy Ferrari RN Attending Clinician Unavailable Only, Ang Db Test Attending Clinician Unavailable Roberto Cheng MD Attending Clinician ROBERTO CHENG Attending Clinician Unavailable Destiny Silva Attending Clinician Andi Lawler Attending Clinician DR JAIDEN LOMAX Attending Clinician Unavailable GELY LALA Admitting Clinician Unavailable VINCE PAREDES Admitting Clinician Unavailable DR JAIDEN LOMAX Admitting Clinician Unavailable Payers Payer Name Policy Type Policy Number Effective Date Expiration Date Cristina barnard [employer] [place] [id number] 2016 00:00:00 Problems Condition Condition Condition Status Onset Resolution Last Treating Co mments Source Name Details Category Date Date Treatment Clinician Date Simple Simple Disease Active Overview: Univer s renal cyst renal cyst 09-18 Formattin ity of 00:00: g of this [place] 00 note Medical might be Branch different from the original. Formattin g of this note might be different from the original. Noted to have left renal cyst measuring 15mm seems to have been stable since Asymptoma tic likely no further work up but will recheck renal USG in 6 months and follow up Reassured pt Chronic Chronic Disease Recurre 2017-04 Method i tonsilliti tonsilliti nce 04-12 st s s 00:00: Hospita 00 l Disease Active 2008-04 Overview: Un darian delivery delivery 05-07 Formattin ity of delivered delivered 00:00: g of this [place] note Medical might be Branch different from the original. ICD10 Diagnosis Term Clinical Nutritionist Utility Encounter Encounter Disease Active 2008-04 Overview: Univers for for 05-07 Formattin ity of sterilizat sterilizat 00:00: g of this [place] ion ion note Medical might be Branch different from the original. ICD10 Diagnosis Term Clinical Nutritionist Utility Localized Localized Diagnosis Active C ommon swelling, swelling, Spir it mass and mass and - [facility] lump, left lump, left St upper limb upper limb 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 [facility] Allergies, Adverse Reactions, Alerts Allergy Allergy Status Severity Reaction(s) Onset Inactive Treating Comm ents Source Name Type Date Date Clinician Hydrocod Propensi Active GI 2017-04 Nausea/ Metho di one ty to Intolerance 04-[address] adverse 00:00: Hospita reaction 00 l s to drug HYDROCOD DRUG Active Low N/V 2017-04 Univers ONE INGREDI 04-12 ity of 00:00: [address] codeine Adverse Active nausea and Comm on Reaction vomiting Spirit - [facility] NO KNOWN Drug Active Univers ALLERGIE Class ity of S [facility] Social History Social Habit Start Date Stop Date Quantity Comments Source Exposure to 2022-01-13 2022-01-23 Not sure [facility] 15:53:00 [facility] (event) [place] Tobacco use and 2021-07-30 2021-07-30 Smokeless tobacco Un iversity of exposure 00:00:00 00:00:00 non-user [facility] Alcohol intake 2018-02-13 2018-02-13 Current [facility] 00:00:00 00:00:00 non-drinker of alcohol (finding) Sex Ass[birth year] At [birth year] [facility] 00:00:00 00:00:00 Smoking Status Start Date Stop Date Source Unknown if [facility] smoked [facility] Never smoked tobacco [facility] Medications Ordered Filled Start Stop Current Ordering Indication Dosage Frequency Signature Comments Components Source Medication Medication Date Date Medication? Clinician (SIG) Name Name HYDROcodone 2021-04- No 1{tbl} 1 tablet, Univers -acetaminop 01-23 Oral, ity of hen (NORCO 21:00: 21:05 ONCE, 1 Kishore as 5) 5-325 mg 00 :00 dose, On Medi manfred tablet 1 Sat Branch tablet 01/23/22 at 1600, JOSE MANUEL cyclobenzap Yes 10mg 10 mg, Univ ers rine 16 Oral, TID, ity of (FLEXERIL) 13:00: First dose [place] tablet 10 on Tue Medical mg 11/17/21 at Branch 0800, Until Discontinu ed, Routine ketorolac 2021- Yes 30mg 30 mg, Unive rs (TORADOL) 11-17 Slow IV ity of injection 11:00: 10:59 Push, Q6H, [place] 30 mg 00 :00 4 doses, Medical First dose Branch on Tue11/17/21 at 0600, Last dose on Tue11/18/21 at 0000, Routine iopamidol 2021- No [id number] 75mL 75 mL, Univers (ISOVUE 8-16 08-16 Intravenou ity o f 370-500 mL) 05:45: 05:45 s, ONCE, 1 [place] injection 00 :00 dose, On Medica l 75 mL Tue [place] 11/17/21 at 0045, Routine ondansetron 2021- No 4mg 4 mg, Slow Univers (ZOFRAN 11-17 IV Push, ity of (PF)) 04:30: 03:45 ONCE, 1 [place] injection 4 00 :00 dose, On Medi manfred mg 11/16/21 at 2330, JOSE MANUEL FENTanyl PF 2021- No 50ug 50 mcg, Un darian (SUBLIMAZE 11-17 Slow IV ity o f (PF)) 04:30: 03:45 Push, [place] injection 00 :00 ONCE, 1 Medical 50 mcg dose, On Branch Tue11/16/21 at 2330, JOSE MANUEL ibuprofen 0 Yes [id number] 600mg Take 1 U nivers 600 mg 8-16 tablet by ity of tablet 00:00: mouth [place] 00 every 6 Medical (six) Branch hours as needed for Pain (scale 4-6) for up to 30 doses. predniSONE Yes [id number] 60mg Take 3 U nivers 20 mg 8-16 tablets by ity of tablet 00:00: mouth [place] 00 every Medical morning. Branch cyclobenzap Yes [id number] 10mg Take 1 Univers rine 10 mg 8-16 tablet by ity of tablet 00:00: mouth 3 [place] 00 (three) Medical times Branch daily as needed for Muscle Spasms for up to 15 doses. ibuprofen 2021-0 Yes [id number] 600mg Take 1 U nivers 600 mg 8-16 tablet by ity of tablet 00:00: mouth [place] 00 every 6 Medical (six) Branch hours as needed for Pain (scale 4-6) for up to 30 doses. predniSONE 2021-0 Yes [id number] 60mg Take 3 U nivers 20 mg 8-16 tablets by ity of tablet 00:00: mouth [place] 00 every Medical morning. Branch cyclobenzap Yes [id number] 10mg Take 1 Univers rine 10 mg 8-16 tablet by ity of tablet 00:00: mouth 3 [place] 00 (three) Medical times Branch daily as needed for Muscle Spasms for up to 15 doses. ibuprofen 2021-0 Yes [id number] 600mg Take 1 U nivers 600 mg 8-16 tablet by ity of tablet 00:00: mouth [place] 00 every 6 Medical (six) Branch hours as needed for Pain (scale 4-6) for up to 30 doses. predniSONE 2021-0 Yes [id number] 60mg Take 3 U nivers 20 mg 8-16 tablets by ity of tablet 00:00: mouth [place] 00 every Medical morning. Branch cyclobenzap 2021-0 Yes [id number] 10mg Take 1 Univers rine 10 mg 8-16 tablet by ity of tablet 00:00: mouth 3 [place] 00 (three) Medical times Branch daily as needed for Muscle Spasms for up to 15 doses. megestroL 2021-0 Yes [id number] Take by Univers 40 mg 4-28 100 mouth Take ity of tablet 00:00: one tablet [place] 00 twice a Medical day for 7 Branch days, then 1 tablet by mouth daily for 14 days. megestroL 2021-0 Yes [id number] Take by Univers 40 mg 4-28 100 mouth Take ity of tablet 00:00: one tablet [place] 00 twice a Medical day for 7 Branch days, then 1 tablet by mouth daily for 14 days. megestroL 2021-0 Yes [id number] Take by Univers 40 mg 4-28 100 mouth Take ity of tablet 00:00: one tablet [place] 00 twice a Medical day for 7 Branch days, then 1 tablet by mouth daily for 14 days. megestroL 2021-0 Yes [id number] Take by Univers 40 mg 4-28 100 mouth Take ity of tablet 00:00: one tablet [place] 00 twice a Medical day for 7 Branch days, then 1 tablet by mouth daily for 14 days. ALPRAZolam 2021-0 Yes 1mg Take 1 mg Un darian 1 mg tablet 4-22 by mouth 3 it y of 00:00: (three) [place] 00 times Medical daily. Branch ALPRAZolam 2021-0 Yes 1mg Take 1 mg Un darian 1 mg tablet 4-22 by mouth 3 it y of 00:00: (three) [place] 00 times Medical daily. Branch ALPRAZolam 2021-0 Yes 1mg Take 1 mg Un darian 1 mg tablet 4-22 by mouth 3 it y of 00:00: (three) [place] 00 times Medical daily. Branch ALPRAZolam 2-0 Yes 1mg Take 1 mg Un darian 1 mg tablet 4-22 by mouth 3 it y of 00:00: (three) [place] 00 times Medical daily. Branch ALPRAZolam 2-0 Yes 1mg Take 1 mg Un darian 1 mg tablet 4-22 by mouth 3 it y of 00:00: (three) [place] 00 times Medical daily. Branch ALPRAZolam 2-0 Yes 1mg Take 1 mg Un darian 1 mg tablet 4-22 by mouth 3 it y of 00:00: (three) [place] 00 times Medical daily. Branch No known 2020- No Univers medications 2-29 ity of 09:48: [address] No known 2020- No Univers medications 2-29 ity of 09:48: [address] No known 2020- No Univers medications 2-29 ity of 09:48: [address] QUEtiapine 2020-0 Yes 400mg Take 400 Un darian 400 mg 6-03 mg by ity of tablet 00:00: mouth. [address] QUEtiapine 2020-0 Yes 400mg Take 400 Un darian 400 mg 6-03 mg by ity of tablet 00:00: mouth. [address] QUEtiapine 2021-0 Yes 400mg Take 400 Un darian 400 mg 6-03 mg by ity of tablet 00:00: mouth. [address] QUEtiapine 2021-0 Yes 400mg Take 400 Un darian 400 mg 6-03 mg by ity of tablet 00:00: mouth. [address] QUEtiapine 2021-0 Yes 400mg Take 400 Un darian 400 mg 6-03 mg by ity of tablet 00:00: mouth. [address] QUEtiapine 2021-0 Yes 400mg Take 400 Un darian 400 mg 6-03 mg by ity of tablet 00:00: mouth. [address] dextroamphe 1-0 Yes 1{tbl} Take 1 Un darian tamine-amph 6-02 tablet by ity of etamine 20 00:00: mouth 3 [place] mg tablet 00 (three) Medical times Branch daily. dextroamphe 2020-0 Yes 1{tbl} Take 1 Un darian tamine-amph 6-02 tablet by ity of etamine 20 00:00: mouth 3 [place] mg tablet 00 (three) Medical times Branch daily. dextroamphe 2020-0 Yes 1{tbl} Take 1 Un darian tamine-amph 6-02 tablet by ity of etamine 20 00:00: mouth 3 [place] mg tablet 00 (three) Medical times Branch daily. dextroamphe 2020-0 Yes 1{tbl} Take 1 Un darian tamine-amph 6-02 tablet by ity of etamine 20 00:00: mouth 3 [place] mg tablet 00 (three) Medical times Branch daily. dextroamphe 2020-0 Yes 1{tbl} Take 1 Un darian tamine-amph 6-02 tablet by ity of etamine 20 00:00: mouth 3 [place] mg tablet 00 (three) Medical times Branch daily. dextroamphe 2020-0 Yes 1{tbl} Take 1 Un darian tamine-amph 6-02 tablet by ity of etamine 20 00:00: mouth 3 [place] mg tablet 00 (three) Medical times Branch daily. dextroamphe 2017-04 Yes 20mg QD Take 20 mg Methodi tamine-amph 1-[address] etamine 16:35: daily. Hospita (ADDERALL) 00 l 20 mg tablet ALPRAZolam 2017-04 Yes TK 1 T PO [facility] (XANAX) 1 0-[address] MG tablet 00:00: Hospita 00 l QUEtiapine 2017-0 Yes TK 1 T PO [facility] (SEROquel) 9-[address] 300 MG 00:00: Hospita tablet 00 l 2008-04 Yes Take one Unive rs VIT-IRON [...] six Branch hours as needed for pain 2008-04 Yes Take one Unive rs VIT-IRON [...] six Branch hours as needed for pain 2008-04 Yes Take one Unive rs VIT-IRON [...] six Branch hours as needed for pain 2008-04 Yes Take one Unive rs VIT-IRON [...] six Branch hours as needed for pain 2008-04 Yes Take one Unive rs VIT-IRON [...] six Branch hours as needed for pain 2008-04 Yes Take one Unive rs VIT-IRON [...] for pain Alprazolam Alprazolam Yes Zev (Schedule Common [place] IV Drug) Spirit [facility] Amphetamine Amphetamine Yes Zev (Schedule Common -Dextroamph -Dextroamph [place] II Drug) Spirit etamine etamine [facility] Quetiapine Quetiapine Yes Zev not C ommon Fumarate Fumarate [place] defined Sp anne marie [facility] Vital Signs Vital Name Observation Time Observation Value Comments Source Systolic blood 2022-01-23 20:53:00 111 mm[Hg] Univer sity [facility] Diastolic blood 2022-01-23 20:53:00 80 [facility]Hg] [facility] Heart rate 2022-01-23 20:53:00 100 /min [facility] Body temperature 2022-01-23 20:53:00 37.39 Roseann [facility] Respiratory rate 2022-01-23 20:53:00 18 /min [facility] Body height 2022-01-23 20:53:00 154.9 cm [facility] Body weight 2022-01-23 20:53:00 72.576 kg [facility] BMI 2022-01-23 20:53:00 30.23 kg/m2 [facility] Oxygen saturation in 2022-01-23 20:53:00 97 /min [facility] Arterial blood by [facility] Pulse oximetry Branch Systolic blood 2021-11-17 05:54:00 111 mm[Hg] Univer sity [facility] Diastolic blood 2021-11-17 05:54:00 77 mm[Hg] [facility] Heart rate 2021-11-17 05:54:00 61 /min [facility] [place] [facility] Respiratory rate 2021-11-17 05:54:00 15 /min [facility] ersity of [place] Medical [place] Oxygen saturation in 2021-11-17 05:54:00 99 /min University of Arterial blood by [facility] Pulse oximetry Branch Body temperature 2021-11-17 03:03:[address] [facility] ersity of [place] Medical [place] Body weight 2021-11-17 03:03:00 72.576 kg Universi ty [facility] [place] [facility] BMI 2021-11-17 03:03:00 30.23 kg/m2 Universi ty [facility] [place] [facility] Systolic blood 2021-07-30 15:26:00 102 mm[Hg] Univer sity of pressure [place] [facility] Diastolic blood 2021-07-30 15:26:00 72 mm[Hg] [facility] [place] Heart rate 2021-07-30 15:23:00 104 /min Universi [facility] [place] [facility] Respiratory rate 2021-07-30 15:23:00 18 /min [facility] ersity of [place] [facility] [place] Body height 2021-07-30 15:23:00 154.9 cm Universi [facility] [place] [facility] Body weight 2021-07-30 15:23:00 70.444 kg [facility]i ty [facility] [place] [facility] BMI 2021-07-30 15:23:00 29.34 kg/m2 Universi ty [facility] [place] [facility] Oxygen saturation in 2021-07-30 15:23:00 98 /min University of Arterial blood by [facility] Pulse oximetry Branch Procedures Procedure Date / Time Performing Clinician Source Performed CONSENT/REFUSAL FOR 2022-01-23 20:46:31 Doctor [facility]igned, [facility] Name Medical Branch AUTHORIZATION FOR 2021-12-18 05:01:00 Doctor Unassigned, No Univ [facility] RELEASE OF PHI Name Medical Branch CT LUMBAR SPINE WO 2021-11-17 05:01:02 [facility] [place] CONTRAST Medical Branch CT THORACIC SPINE WO 2021-11-17 04:47:11 Gely Lala [facility] sit of [place] CONTRAST Medical Branch CT ABDOMEN PELVIS W 2021-11-17 04:44:51 Gely Lala [facility] of [place] CONTRAST Medical Branch CT HEAD WO CONTRAST 2021-11-17 04:28:01 [facility] CERV[facility] WO 2021-11-17 04:27:[address] COMP. METABOLIC PANEL 2021-11-17 03:34:00 Gely Lala [facility] ([id number]) [facility] CBC WITH DIFF 2021-11-17 03:34:00 Gely Lala [facility] URINALYSIS 2021-11-17 03:34:00 Gely Lala [facility] POCT TEST 2021-07-30 16:02:00 Bud Chaney [facility] Encounters Start End Encounter Admission Attending Care Care Encounter Source Date/Time Date/Time Type Type Clinicians Facility Department ID 2022-01-23 2022-01-23 Emergency X DREW [facility] ERT [id number] Univers 15:54:00 16:17:00 OPAL [facility] 2022-01-23 2022-01-23 [facility] [id number] Univers 15:54:00 16:17:00 Opal LOPEZ [id number] ity [facility] [id number] [facility] [id number] [facility] 084 Branch 2021-12-18 2021-12-18 Orders Doctor AFIA [id number] Univers 00:00:00 00:00:00 Only Unassigned, BRIAN [id number] ity of [place] [facility] [id number] [facility] [place] [facility] [id number] [facility] 009 Branch 2021-11-16 2021-11-17 Emergency X SPIKE [facility] ERT [id number] Univers 22:05:00 00:59:00 GELY [facility] 2021-11-16 2021-11-17 Emergency [facility] [id number] Univers 22:05:00 00:59:00 Gely LOPEZ [id number] ity [facility] [id number] [facility] [id number] [facility] 084 Branch 2021-07-31 2021-07-31 Case Bud Chaney [facility] [id number] [id number] Univers 00:00:00 00:00:00 Management TORO [id number] ity of PEDIATRIC [id number] [facility] [id number] [facility] 134 Branch 2021-07-30 2021-07-30 Emergency X , [facility] ERT [id number] Univers 11:31:00 14:12:00 VINCE [facility]etrius [facility] 2021-07-30 2021-07-30 Emergency X , [facility] ERT [id number] Univers 11:31:00 14:12:00 VINCE janademetrius [facility] 2021-07-30 2021-07-30 Emergency [facility] [id number] Univers 11:31:00 14:12:00 Vince LOPEZ [id number] i ty [facility] 4.2.7.2.686 [facility] [id number] [facility] 084 [place] 2021-07-30 2021-07-30 Office Bud Chaney [facility] [id number] Univers 09:45:00 11:21:46 Visit TORO [id number] it y of WOMEN'S 4.2.7.2.686 [facility] [id number] [facility] 134 Branch 2021-07-30 2021-07-30 Outpatient R BUD CHANEY [facility] [id number] Univers 09:45:00 11:21:46 ity of [facility] 2021-07-30 2021-07-30 Outpatient R BUD CHANEY [facility] [id number] Univers 09:45:00 09:45:00 ity of [facility] 2021-07-30 2021-07-30 Orders Doctor OREILLY [id number] Univers 00:00:00 00:00:00 Only Unassigned, BRIAN [id number] ity of [place] [facility] 4.2.7.2.686 Kishore as [id number] [facility] 009 [place] 2021-04-02 2021-04-02 Telephone Izzy Ferrari [id number] Univers 00:00:00 00:00:00 BRIAN [id number] it y of [facility] 4.2.7.2.686 Kishore as [id number] [facility] 019 [place] 2021-04-01 2021-04-01 Laboratory Only, Ang Db Test [facility] 1.2.8 40.114 [id number] Univers 09:45:00 10:00:00 Only Prosper Roberto [facility] [id number] ity of [place] 4.2.7.2.686 Kishore as SAMANTHA?BLEA [id number] [address] MEDICAL OFFICE [facility] 2021-04-01 2021-04-01 Outpatient R PROSPER [facility] [id number] Univers 09:45:00 09:50:42 [facility] [place] [facility] 2021-04-01 2021-04-01 Letter Destiny Silva [facility] 1.2.840.114 [id number] Univers 00:00:00 00:00:00 (Out) [facility] 350.1.13.10 i ty of [place] 4.2.7.2.686 Kishore as SAMANTHA?BLEA [id number] [address] MEDICAL OFFICE [facility] 2020-12-23 2020-12-23 Emergency Aline [facility] 1.2.840.114 [id number] Univers 14:55:00 18:35:00 Andi Da Silva [place] 350.1.13.10 i ty of [place] 4[place]2.7.2.686 [place] [id number] [facility] 084 [place] 2020-12-23 2020-12-23 Emergency X [facility] ERT [id number] Univers 14:46:00 14:46:00 ity [facility] 2018-01-24 2018-01-24 Outpatient LIAM MORRIS [id number] Alexandrea 00:00:00 00:00:00 JAIDEN Dela Cruz [facility] 2017-11-16 2017-11-16 Outpatient [facility] [id number] Common 16:35:00 16:35:00 [facility] 2017-11-15 2017-11-15 Outpatient Irena [facility] [id number] Common 08:30:00 08:30:00 t [facility] 2017-11-02 2017-11-02 Outpatient Irena [place] [id number] Common 09:30:00 09:30:00 t [facility] Results Test Description Test Time Test Comments Results Result Comments Source COMP. METABOLIC PANEL (07140) 2021-11-17 04:25:14 Test Item Value Reference Range Interpretation Comme nts NA (test code = 3328006457) 136 mmol/L 135-145 K (test code = 7226657433) 4.5 mmol/L 3.5-5 CL (test code = 5498073189) 106 mmol/L 98-108 CO2 TOTAL (test code = 8522036657) 27 mmol/L 23-31 AGAP (test code = 1865916538) 2-16 BUN (test code = 0282322854) 13 mg/dL 7-23 GLUCOSE (test code = 4023577252) 89 mg/dL 70-110 CREATININE (test code = 0.71 mg/dL 0.5-1.04 6083249063) TOTAL BILI (test code = 0.1-1.1 L 4810883125) CALCIUM (test code = 2830306043) 9.0 mg/dL 8.6-10.6 T PROTEIN (test code = 4268114981) 6.9 g/dL 6.3-8.2 ALBUMIN (test code = 1350965137) 4.3 g/dL 3.5-5 ALK PHOS (test code = 0723838047) 50 U/L 34-122 ALTv (test code = 1742-6) 14 U/L 5-35 AST(SGOT) (test code = 5668264657) 22 U/L 13-40 eGFR (test code = 6772580273) mL/min/1.73m2 AMMON (test code = AMMON) Association [...] tests). Lab Interpretation (test code = Abnormal 02689-3) [facility] WITH [id number] 03:49:59 Test Item Value Reference Range Interpretation Comments WBC (test code = See_Comment [Automated 6193-2) message] The sy stem which generated this result transmitted reference range : 4.30 - 11.10 10*3/?L. The reference range was not used to interpret this result as normal/abnormal . RBC (test code = See_Comment L [Automated 388-8) message] The sy stem which generated this result transmitted reference range : 3.93 - 5.25 10*6/?L. The reference range was not used to interpret this result as normal/abnormal . HGB (test code = 10.5 g/dL 11.6-15 L 718-7) HCT (test code = 31.7 % 35.7-45.2 L 4544-3) MCV (test code = 98.8 fL 80.6-95.5 H 787-2) MCH (test code = 32.7 pg 25.9-32.8 785-6) MCHC (test code = 33.1 g/dL 31.6-35.1 786-4) RDW-SD (test code = 51.3 fL 39-49.9 H 85293-8) RDW-CV (test code = 14.4 % 12-15.5 788-0) PLT (test code = See_Comment [Automated 777-3) message] The sy stem which generated this result transmitted reference range : 166 - 358 10*3/ ?L. The reference r nelida was not used to interpret this result as normal/abnormal . MPV (test code = 9.3 fL 9.5-12.9 L 17710-4) NRBC/100 WBC (test See_Comment [Automat ed code = 8151376569) message] The system which generated this result transmitted reference range : 0.0 - 10.0 /100 WBCs. The refer ence range was not u sed to interpret th is result as normal/abnormal . NRBC x10^3 (test code See_Comment [Auto mated = 2917146180) message] The s ystem which generated this result transmitted reference range : 10*3/?L. The reference range was not used to interpret this result as normal/abnormal . GRAN MAT (NEUT) % 45.9 % (test code = 770-8) IMM GRAN % (test code 0.40 % = 4757698597) LYMPH % (test code = 43.6 % 736-9) MONO % (test code = 6.8 % 5905-5) EOS % (test code = 1.8 % 713-8) BASO % (test code = 1.5 % 706-2) GRAN MAT x10^3(ANC) 2.48 10*3/uL 1.88-7.09 (test code = 9503598394) IMM GRAN x10^3 (test 0-0.06 code = 6074902406) LYMPH x10^3 (test code 2.36 10*3/uL 1.32-3.29 = 731-0) MONO x10^3 (test code 0.37 10*3/uL 0.33-0.92 = 742-7) EOS x10^3 (test code = 0.10 10*3/uL 0.03-0.39 711-2) BASO x10^3 (test code 0.08 10*3/uL 0.01-0.07 H = 704-7) Lab Interpretation Abnormal (test code = 95865-8) [id number] 16:02:00 Test Item Value Reference Range Interpretation Comments POCT PREG (test code = 1605) Negative On board controls acceptable with C Yes Line (test code = 3574) POCT PREG LOT # (test code = 3575) POCT PREG TEST DATE (test code = 3576) [facility] [place] [facility] [id number] 16:02:00 Test Item Value Reference Range Interpretation Comments POCT PREG (test code = 1605) Negative On board controls acceptable with C Yes Line (test code = 3574) POCT PREG LOT # (test code = 3575) POCT PREG TEST DATE (test code = 3576) [facility]"
[2022-01-24] MEDS ORDERED: CYCLOBENZAPRINE 10 MG TAB ONE (13:03)
[2022-01-24] MEDS ORDERED: HYDROCODONE/APAP 10/325 TAB ONE (13:04)
--- NOTE | 2022-01-24 13:51 | RAD REPORT ---
EXAM DESCRIPTION: RAD - Femur Right - 01/24/2022 1:40 pm CLINICAL HISTORY: PAIN COMPARISON: No comparisons FINDINGS/IMPRESSION: No acute fracture. No malalignment. No significant focal degenerative changes.
--- NOTE | 2022-01-24 13:52 | RAD REPORT ---
EXAM DESCRIPTION: RAD - Pelvis - 01/24/2022 1:39 pm CLINICAL HISTORY: pelvic pain COMPARISON: Transvaginal Study Probe dated 07/28/2021 FINDINGS/IMPRESSION: No acute fracture. No malalignment. Bilateral acetabular degenerative changes w hich are mild.
--- NOTE | 2022-01-24 14:08 | ER ---
Nurse's Notes [facility] Name: Leesa Stone Age: 31 yrs Sex: Female : 1990 Arrival Date: 01/24/2022 Time: 12:41 Bed 24 Private MD: Rojas Rivera T Diagnosis: Strain of other specified muscles, fascia and tendons at thigh level, right thigh Presentation: 01/24 12:54 Chief complaint: Slipped on wet kitchen floor, did the splits, now c/o severe right hb groin and right inner leg pain. Coronavirus screen: At this time, the client does not indicate any symptoms associated with coronavirus-19. Ebola Screen: No symptoms or risks identified at this time. Risk Assessment: Do you want to hurt yourself or someone else? Patient reports no desire to harm self or others. Onset of symptoms was January 24, 2022. 12:54 Method Of Arrival: Wheelchair hb 12:54 Acuity: JAVIER 4 hb 13:06 Initial Sepsis Screen: Does the patient meet any 2 criteria? No. Patient's initial kb3 sepsis screen is negative. Does the patient have a suspected source of infection? No. Patient's initial sepsis screen is negative. 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 - Social history:: Smoking status: Patient denies any tobacco usage or history of. - Family history:: not pertinent. - Hospitalizations: : No recent hospitalization is reported. Screenin:57 Abuse screen: Denies threats or abuse. Denies injuries from another. Nutritional kb3 screening: No deficits noted. Tuberculosis screening: No symptoms or risk factors identified. Fall Risk Fall in past 12 months (25 points). No secondary diagnosis (0 pts). No IV (0 pts). Ambulatory Aid- None/Bed Rest/Nurse Assist (0 pts). Gait- Normal/Bed Rest/Wheelchair (0 pts) Mental Status- Oriented to own ability (0 pts). Total Carbajal Fall Scale indicates Low Risk Score (25-44 pts). Fall prevention measures have been instituted. Side Rails Up X 2 Frequent Obs/Assesments occuring As available Patient and Family Educated on Fall Prevention Program and strategies. Assessment: 12:57 Reassessment: No changes from previously documented assessment. General: Appears kb3 distressed, uncomfortable, Behavior is calm, cooperative. General: Received care of pt from triage via WC. PT able to bear weight and transfer self to stretcher with pain to right groin and leg. PT reports just GRAY TENDER she slipped on a wet kitchen floor and "did the splits." Reports she felt a pop in her right groin and has shooting pain down her right leg. Reports moderate pain in left groin as well, but worse in right groin. . Pain: Complains of pain in groin, right femoral area, left femoral area, medial aspect of right thigh, medial aspect of right knee and left leg Pain does not radiate. Pain currently is 9 out of 10 on a pain scale. Quality of pain is described as sharp, shooting, Pain began suddenly, 30 min ago. Vital Signs: 12:54 BP 114 / 76; Pulse 92; Resp 16; Temp 97.2; Pulse Ox 100% on R/A; Weight 74.84 kg; hb Height 5 ft. 1 in. (154.94 cm); Pain 9/10; 14:20 BP 107 / 71; Pulse 82; Resp 18; Pulse Ox 100% ; kb3 12:54 Body Mass Index 31.18 (74.84 kg, 154.94 cm) ED Course: 12:41 Patient arrived in ED. mr 12:41 Rojas Rivera MD is Private Physician. mr 12:52 Frank Ashford MD is Attending Physician. rn 12:55 Triage completed. hb 12:56 Arm band placed on. hb 12:57 Jackie Lopez, LEVI is Primary Nurse. kb3 12:57 Patient has correct armband on for positive identification. Placed in gown. Bed in low kb3 position. Side rails up X 1. Warm blanket given. 12:57 No provider procedures requiring assistance completed. Patient did not have IV access kb3 during this emergency room visit. 13:41 XRAY Pelvis In Process Unspecified. EDMS 13:42 XRAY Femur RIGHT In Process Unspecified. EDMS Administered Medications: 13:05 Drug: [place] (HYDROcodone-acetaminophen) 10 mg-325 mg 1 tabs Route: PO; kb3 14:03 Follow up: Response: No adverse reaction; Pain is decreased kb3 13:05 Drug: Flexeril (cyclobenzaprine) 10 mg Route: PO; kb3 14:02 Follow up: Response: No adverse reaction; Pain is decreased kb3 Medication: 12:57 VIS not applicable for this client. kb3 Outcome: 14:08 Discharge ordered by . rn 14:30 Discharge instructions given to patient, Instructed on discharge instructions, follow kb3 up and referral plans. medication usage, Demonstrated understanding of instructions, follow-up care, medications, Prescriptions given X 1. 14:50 Discharged to home ambulatory. kb3 14:50 Condition: stable 14:51 Patient left the ED. kb3 Signatures: Dispatcher [employer] EDMS Huseyin Dorothy hodges Frank Ashford MD MD rn Baxter, Heather, RN RN hb Bradberry, Kelly, RN RN kb3 Corrections: (The following items were deleted from the chart) 13:07 12:55 Allergies: HYDROCODONE; cecilia kb3
--- NOTE | 2022-01-24 14:08 | EDPHYS ---
Physician Documentation [facility] Name: Leesa Stone Age: 31 yrs Sex: Female : 1990 Arrival Date: 01/24/2022 Time: 12:41 Bed 24 Private MD: Rojas Rivera T ED Physician Frank Ashford HPI: 01/24 14:03 This 31 yrs old Female presents to ER via Wheelchair with complaints of Fall Injury. rn 14:03 Details of fall: The patient fell from an upright position, while standing, while rn walking. Onset: The symptoms/episode began/occurred just prior to arrival. Associated injuries: The patient sustained no obvious injury, right groin/thigh. Severity of symptoms: At their worst the symptoms were mild. The patient has not experienced similar symptoms in the past. The patient has not recently seen a physician. Pt reports slipped in kitchen, "did the splits", pulled something in right groin, hurts to move right leg. No head or neck injury. No other injury other than right groin/leg.. 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 - Social history:: Smoking status: Patient denies any tobacco usage or history of. - Family history:: not pertinent. - Hospitalizations: : No recent hospitalization is reported. ROS: 14:03 Constitutional: Negative for fever, chills, and weight loss, Eyes: Negative for injury, rn pain, redness, and discharge, Neck: Negative for injury, pain, and swelling, Cardiovascular: Negative for chest pain, palpitations, and edema, Respiratory: Negative for shortness of breath, cough, wheezing, and pleuritic chest pain, Abdomen/GI: Negative for abdominal pain, nausea, vomiting, diarrhea, and constipation, Back: Negative for injury and pain, MS/Extremity: + right groin/leg pain Skin: Negative for injury, rash, and discoloration, Neuro: Negative for headache, weakness, numbness, tingling, and seizure. Exam: 14:03 Constitutional: This is a well developed, well nourished patient who is awake, alert, rn flexing and extending right leg to get comfortable, holding right groin. Head/Face: Normocephalic, atraumatic. Cardiovascular: Regular rate and rhythm. No pulse deficits. Respiratory: No increased work of breathing, no retractions or nasal flaring. Abdomen/GI: Soft, non-tender Skin: Warm, dry MS/ Extremity: Pulses equal, no cyanosis. Neurovascular intact. No pain with ROM of either hips, no bony tenderness. + mild right proximal thigh pain along inner thigh. Neuro: Awake and alert, GCS 15, oriented to person, place, time, and situation. Cranial nerves II-XII grossly intact. Motor strength 5/5 in all extremities. Sensory grossly intact. Cerebellar exam normal. Normal gait. Vital Signs: 12:54 BP 114 / 76; Pulse 92; Resp 16; Temp 97.2; Pulse Ox 100% on R/A; Weight 74.84 kg; hb Height 5 ft. 1 in. (154.94 cm); Pain 9/10; 14:20 BP 107 / 71; Pulse 82; Resp 18; Pulse Ox 100% ; kb3 12:54 Body Mass Index 31.18 (74.84 kg, 154.94 cm) hb MDM: 12:52 Patient medically screened. rn 14:03 Differential diagnosis: contusion, fracture, sprain, strain. Data reviewed: vital rn signs, nurses notes, radiologic studies, plain films, and as a result, I will discharge patient. Counseling: I had a detailed discussion with the patient and/or guardian regarding: the historical points, exam findings, and any diagnostic results supporting the discharge/admit diagnosis, radiology results, the need for outpatient follow up, to return to the emergency department if symptoms worsen or persist or if there are any questions or concerns that arise at home. Response to treatment: the patient's symptoms have mildly improved after treatment, and as a result, I will discharge patient. Special discussion: I discussed with the patient/guardian in detail that at this point there is no indication for admission to the hospital. It is understood, however, that if the symptoms persist or worsen the patient needs to return immediately for re-evaluation. 01/24 13:01 Order name: XRAY Pelvis; Complete Time: 14:03 rn 01/24 13:01 Order name: XRAY Femur RIGHT; Complete Time: 14:03 rn Administered Medications: 13:05 Drug: [place] (HYDROcodone-acetaminophen) 10 mg-325 mg 1 tabs Route: PO; kb3 14:03 Follow up: Response: No adverse reaction; Pain is decreased kb3 13:05 Drug: Flexeril (cyclobenzaprine) 10 mg Route: PO; kb3 14:02 Follow up: Response: No adverse reaction; Pain is decreased kb3 Disposition Summary: 01/24/22 14:08 Discharge Ordered Location: Home rn Problem: new rn Symptoms: have improved rn Condition: Stable rn Diagnosis - Strain of other specified muscles, fascia and tendons at thigh level, right thigh rn Followup: rn - With: Private Physician - When: As needed - Reason: Recheck today's complaints, Re-evaluation by your physician Discharge Instructions: - Discharge Summary Sheet rn - Muscle Strain rn Forms: - Medication Reconciliation Form rn - Thank You Letter rn - Antibiotic furnace firer - Prescription Opioid Use rn Prescriptions: - Cyclobenzaprine 10 mg Oral Tablet - take 1 tablet by ORAL route every 8 hours As needed; 12 tablet; Refills: 0, rn Product Selection Permitted Signatures: Dispatcher [employer] Frank Trent MD MD rn Baxter, Heather, RN RN hb Bradberry, Kelly, RN RN kb3 Corrections: (The following items were deleted from the chart) 13: 12:55 Allergies: HYDROCODONE; cecilia kb3
[2022-01-24 15:08] VITALS: TEMP 97.2; O2SAT 100
[2022-01-24 15:09] VITALS: BP 107/71
== END 2022-01-24 14:51 | disposition home or self-care (01) ==
LOC: ER 12:39
DX: S76.811A Strain of other specified muscles, fascia and tendons at thigh level, right thigh, initial encounter (principal); Z98.82 Breast implant status
CPT/HCPCS: 72170; 99283

== ENCOUNTER 2022-05-30 12:24 | Emergency (ER) | payer BC ==
--- OUTSIDE RECORDS SUMMARY | 2022-05-30 12:29 | XMS REPORT | Continuity of Care Document ---
:1990 Author Organization [facility] t Address [address] [place] [address] Dr. Rhodes. [address] [place] [address] Care Team Providers Name Role Phone Asked, No Pcp Primary Care Physician Unavailable OPAL RUSSELL Attending Clinician Unavailable Opal Russell DO Attending Clinician Doctor Unassigned, [place] Attending Clinician Unavailable GELY LALA Attending Clinician Unavailable Gely Peace Attending Clinician Bud Chaney MD Attending Clinician VINCE PAREDES Attending Clinician Unavailable Vince Paredes DO Attending Clinician BUD CHANEY Attending Clinician Unavailable Izzy Ferrari RN Attending Clinician Unavailable Only, Ang Db Test Attending Clinician Unavailable Roberto Cheng MD Attending Clinician ROBERTO CHENG Attending Clinician Unavailable Rojas Rivera Attending Clinician Andi Lawler Attending Clinician DR JAIDEN LOMAX Attending Clinician Unavailable GELY LALA Admitting Clinician Unavailable VINCE PAREDES Admitting Clinician Unavailable DR JAIDEN LOMAX Admitting Clinician Unavailable Payers Payer Name Policy Type Policy Number Effective Date Expiration Date Cristina barnard [employer] [place] [id number] 2016 00:00:00 [employer] PAID BY [id number] 2021 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 ICD10 Diagnosis Term Aluminum Siding Applicator Utility Encounter Encounter Disease Active 2008-04 Overview: Univers for for 05-07 Formattin ity of sterilizat sterilizat 00:00: g of this [place] ion ion 00 note Medical might be Branch different from the original. 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 - [facility] sheath sheath St tumor tumor [facility] Allergies, Adverse Reactions, Alerts Allergy Allergy Status Severity Reaction(s) Onset Inactive Treating Comm ents Source Name Type Date Date Clinician Hydrocod Propensi Active GI 2017-04 Nausea/ Metho di one ty to Intolerance 04-[address] adverse 00:00: [facility]ospita reaction 00 l s to drug HYDROCOD DRUG Active Low N/V 2017-04 Univers NILES INGREDI 04-12 ity of 00:00: [address] codeine Adverse Active nausea and Comm on Reaction vomiting Spirit - [facility] NO KNOWN Drug Active Univers ALLERGIE Class ity of S [facility] Social History Social Habit Start Date Stop Date Quantity Comments Source Exposure to 2022-01-13 2022-01-23 [facility] 00:[facility]00 15:53:00 [facility] (event) [place] Tobacco use and 2021-07-30 2021-07-30 Smokeless tobacco Un iversity of exposure 00:00:00 00:00:00 non-user [facility] Alcohol intake 2018-02-13 2018-02-13 Current [facility] 00:00:00 00:00:00 non-drinker of alcohol (finding) Sex Assigned At [birth year] [facility] 00:00:00 00:00:00 Smoking Status Start Date Stop Date Source Unknown if ever smoked [facility] Never smoked tobacco [facility] Medications Ordered Filled Start Stop Current Ordering Indication Dosage Frequency Signature Comments Components Source Medication Medication Date Date Medication? Clinician (SIG) Name Name HYDROcodone 2021-04- No 1{tbl} 1 tablet, Univers -acetaminop 01-23 Oral, ity of hen (NORCO 21:00: 21:05 ONCE, 1 Kishore as 5) 5-325 mg 00 :00 dose, On Medi manfred tablet 1 Sat [place] tablet 01/23/22 at 1600, JOSE MANUEL cyclobenzap Yes 10mg 10 mg, Univ ers rine 11-17 Oral, TID, ity of (FLEXERIL) 13:00: First dose [place] tablet 10 00 on Tue Medical mg 11/17/21 at Branch 0800, Until Discontinu ed, Routine ketorolac No 30mg 30 mg, Unive rs (TORADOL) 11-17 Slow IV ity of injection 11:00: 10:59 Push, Q6H, [place] 30 mg 00 :00 4 doses, Medical First dose Branch on Tue11/17/21 at 0600, Last dose on Tue11/18/21 at 0000, Routine iopamidol 2021- No [id number] 75mL 75 mL, Univers (ISOVUE 11-17 Intravenou ity o f 370-500 mL) 05:45: 05:45 s, ONCE, 1 [place] injection 00 :00 dose, On Medica l 75 mL 11/17/21 at 0045, Routine ondansetron 2021- No [...] Branch Tue11/16/21 at 2330, JOSE MANUEL ibuprofen 2021-0 Yes [id number] 600mg Take 1 U nivers 600 mg 8-16 tablet by ity of tablet 00:00: mouth [place] 00 every 6 Medical (six) Branch hours as needed for Pain (scale 4-6) for up to 30 doses. predniSONE 2021-0 Yes [id number] 60mg Take 3 U nivers 20 mg 8-16 tablets by ity of tablet 00:00: mouth [place] 00 every Medical morning. Branch cyclobenzap 0 Yes [id number] 10mg Take 1 Univers rine 10 mg 8-16 tablet by ity of tablet 00:00: mouth 3 [place] 00 (three) Medical times Branch daily as needed for Muscle Spasms for up to 15 doses. ibuprofen 2021-0 Yes [id number] 600mg Take 1 U nivers 600 mg 8-16 tablet by ity of tablet 00:00: mouth [place] 00 every 6 Medical (six) Branch hours as needed for Pain (scale 4-6) for up to 30 doses. predniSONE 2021-0 Yes [id number] 60mg Take 3 U nivers 20 mg 8-16 tablets by ity of tablet 00:00: mouth [place] 00 every Medical morning. Branch cyclobenzap Yes [id number] 10mg Take 1 Univers rine 10 mg 8-16 tablet by ity of tablet 00:00: mouth 3 [place] 00 (three) Medical times Branch daily as needed for Muscle Spasms for up to 15 doses. ibuprofen 2021-0 Yes [id number] 600mg Take 1 U nivers 600 mg 8-16 tablet by ity of tablet 00:00: mouth [place] 00 every 6 Medical (six) Branch hours as needed for Pain (scale 4-6) for up to 30 doses. predniSONE 2021-0 Yes [id number] 60mg Take 3 U nivers 20 mg 8-16 tablets by ity of tablet 00:00: mouth [place] 00 every Medical morning. Branch cyclobenzap 2021-0 Yes [id number] 10mg Take 1 Univers rine 10 mg 8-16 tablet by ity of tablet 00:00: mouth 3 00 (three) Medical times Branch daily as needed for Muscle Spasms for up to 15 doses. megestroL 0 Yes [id number] Take by Univers 40 mg 4-28 100 mouth Take ity of tablet 00:00: one tablet [place] 00 twice a Medical day for 7 Branch days, then 1 tablet by mouth daily for 14 days. megestroL 0 Yes [id number] Take by Univers 40 mg 4-28 100 mouth Take ity of tablet 00:00: one tablet [place] 00 twice a Medical day for 7 Branch days, then 1 tablet by mouth daily for 14 days. megestroL 2021-0 Yes [id number] Take by Univers 40 mg 4-28 100 mouth Take ity of tablet 00:00: one tablet [place] 00 twice a Medical day for 7 Branch days, then 1 tablet by mouth daily for 14 days. megestroL 2021-0 Yes [id number] Take by Univers 40 mg 4-28 100 mouth Take ity of tablet 00:00: one tablet 00 twice a Medical day for 7 [...] mouth 3 it y of 00:00: (three) [place] 00 times Medical daily. Branch No known 2020- No Univers medications 2-29 ity of 09:48: [address] No known 2020- No Univers medications 2-29 ity of 09:48: [address] No known 2020- No Univers medications 2-29 ity of 09:48: [address] QUEtiapine 2020-0 Yes 400mg Take 400 Un darian 400 mg 6-03 mg by ity of tablet 00:00: mouth. [address] QUEtiapine 2020-0 Yes 400mg Take 400 Un darian 400 mg 6-03 mg by ity of tablet 00:00: mouth. [address] QUEtiapine 2020-0 Yes 400mg Take 400 Un darian 400 mg 6-03 mg by ity of tablet 00:00: mouth. [address] QUEtiapine 2020-0 Yes 400mg Take 400 Un darian 400 mg 6-03 mg by ity of tablet 00:00: mouth. [address] QUEtiapine 2020-0 Yes 400mg Take 400 Un darian 400 mg 6-03 mg by ity of tablet 00:00: mouth. [address] QUEtiapine 2020-0 Yes 400mg Take 400 Un darian 400 mg 6-03 mg by ity of tablet 00:00: mouth. [address] dextroamphe 2020-0 Yes 1{tbl} Take 1 Un darian tamine-amph 6-02 tablet by ity of etamine 20 00:00: mouth [place] tablet 00 (three) Medical times [place] daily. dextroamphe 2020-0 Yes 1{tbl} Take 1 [...] Hospita (ADDERALL) 00 l 20 mg tablet dextroamphe 2017-04 Yes 20mg QD Take 20 mg Methodi tamine-amph 1-[address] etamine 16:35: daily. Hospita (ADDERALL) 00 l 20 mg tablet ALPRAZolam 2017- Yes TK 1 T PO Me [facility]odi (XANAX) 1 0-[address] MG tablet 00:00: Hospita 00 l ALPRAZolam 2017- Yes TK 1 T PO Me [facility]odi (XANAX) 1 0-[address] MG tablet 00:00: Hospita 00 l QUEtiapine 2017-0 Yes TK 1 T PO Me thodi (SEROquel) 9-[address] 300 MG 00:00: Hospita tablet 00 l QUEtiapine 2017-0 Yes TK 1 [...] Zev (Schedule Common [facility] IV Drug) Spirit [facility] Amphetamine Amphetamine Yes Zev (Schedule Common -Dextroamph -Dextroamph [facility] II Drug) Spirit etamine etamine [facility] Quetiapine Quetiapine Yes Zev not C ommon Fumarate Fumarate [facility] defined Sp anne marie [facility] Vital Signs Vital Name Observation Time Observation Value Comments Source Systolic blood 2022-01-23 20:53:00 111 mm[Hg] Univer sity [facility] Diastolic blood 2022-01-23 20:53:00 80 mm[Hg] Unive rsity [facility] Heart rate 2022-01-23 20:53:00 100 /min [facility] Body temperature 2022-01-23 20:53:[address] [facility] Respiratory rate 2022-01-23 20:53:00 18 /min [facility] Body height 2022-01-23 20:53:00 154.9 cm [facility] Body weight 2022-01-23 20:53:00 72.576 kg [facility] [place] [facility] BMI 2022-01-23 20:53:00 30.23 kg/m2 [facility] [place] [facility] Oxygen saturation in 2022-01-23 20:53:00 97 /min University of Arterial blood by [facility] Pulse oximetry Branch Systolic blood 2021-11-17 05:54:00 111 mm[Hg] Univer sity of pressure [place] [facility] Diastolic blood 2021-11-17 05:54:00 77 mm[Hg] Unive rsity of pressure [place] [facility] Heart rate 2021-11-17 05:54:00 61 /min [facility] [place] [facility] Respiratory rate 2021-11-17 05:54:00 15 /min Univ ersity [facility] [place] [facility] Oxygen saturation in 2021-11-17 05:54:00 99 /min University of Arterial blood by [facility] Pulse oximetry Branch Body temperature 2021-11-17 03:03:00 36.83 Roseann Univ ersity [facility] [place] [facility] Body weight 2021-11-17 03:03:00 72.576 kg [facility] [place] [facility] BMI 2021-11-17 03:03:00 30.23 kg/m2 [facility] [place] [facility] Systolic blood 2021-07-30 15:26:00 102 mm[Hg] Univer sity of pressure [place] [facility] Diastolic blood 2021-07-30 15:26:00 72 mm[Hg] Unive rsity of pressure [place] [facility] Heart rate 2021-07-30 15:23:00 104 /min [facility] [place] [facility] Respiratory rate 2021-07-30 15:23:00 18 /min Univ ersity [facility] [place] [facility] Body height 2021-07-30 15:23:00 154.9 cm [facility] [place] [facility] Body weight 2021-07-30 15:23:00 70.444 kg [facility] [place] [facility] BMI 2021-07-30 15:23:00 29.34 kg/m2 [facility] [place] [facility] Oxygen saturation in 2021-07-30 15:23:00 98 /min University of Arterial blood by [facility] Pulse oximetry Branch Procedures Procedure Date / Time Performing Clinician Source Performed CONSENT/REFUSAL FOR 2022-01-23 20:46:31 [facility] Name Medical Branch AUTHORIZATION FOR 2021-12-18 05:01:00 Doctor Unassigned, No [facility] RELEASE OF PHI Name Medical Branch CT LUMBAR SPINE WO 2021-11-17 05:01:02 Gely Lala [facility] CONTRAST [facility] CT THORACIC SPINE WO 2021-11-17 04:47:11 Gely Lala [facility] CT ABDOMEN PELVIS W 2021-11-17 04:44:51 Gely Lala [facility] CT HEAD WO CONTRAST 2021-11-17 04:28:01 Gely Lala [facility] CT CERVICAL SPINE WO 2021-11-17 04:27:39 Gely Lala [facility] COMP. METABOLIC PANEL 2021-11-17 03:34:00 Gely Lala [facility] ([id number]) [facility] CBC WITH DIFF 2021-11-17 03:34:00 Gely Lala [facility] URINALYSIS 2021-11-17 03:34:00 Gely Lala [facility] POCT TEST 2021-07-30 16:02:00 Bud Chaney [facility] Encounters Start End Encounter Admission Attending Care Care Encounter Source Date/Time Date/Time Type Type Clinicians Facility Department ID 2022-01-23 2022-01-23 Emergency X DREW MOMILI ERT [id number] Univers 15:54:00 16:17:00 OPAL baires [facility] 2022-01-23 2022-01-23 Emergency Derw [facility] [id number] Univers 15:54:00 16:17:00 Opal LOPEZ [id number] dequan cates [place] 4.2.7.2.686 [facility] [id number] [facility] 084 Branch 2021-12-18 2021-12-18 Orders Doctor OREILLY [id number] Univers 00:00:00 00:00:00 Only UnassBRIAN weaver [id number] [facility] [id number] Kishore as [id number] [facility] 009 Branch 2021-11-16 2021-11-17 Emergency X SPIKE, [facility] ERT [id number] Univers 22:05:00 00:59:00 GELY baires [facility] 2021-11-16 2021-11-17 Emergency Spike, [facility] [id number] Univers 22:05:00 00:59:00 Gely Poly LOPEZ [id number] ity of [place] 4[place]2.7.2.686 [place] [id number] [place] [id number] Branch 2021-07-31 2021-07-31 Case Bud Chaney [facility] [id number] Univers 00:00:00 00:00:00 Management TORO [id number] ity of [place]2.[place] [facility] [id number] [facility] 134 [place] 2021-07-30 2021-07-30 Emergency X [facility] ERT [id number] Univers 11:31:00 14:12:00 VINCE baires [facility] 2021-07-30 2021-07-30 Emergency X [facility] ERT [id number] Univers 11:31:00 14:12:00 VINCE baires [facility] 2021-07-30 2021-07-30 Emergency [facility] [id number] Univers 11:31:00 14:12:00 Vince LOPEZ 350.1.13.10 i ty of [place] 4.2.7.2.686 [facility] [place] [id number] [place] [id number] [place] 2021-07-30 2021-07-30 Office Bud Chaney [facility] [id number] Univers 09:45:00 11:21:46 Visit TORO 350.1.13.10 it y of WOMEN'S 4.2.7.2.686 [facility] [id number] [facility] 134 Branch 2021-07-30 2021-07-30 Outpatient R BUD CHANEY [facility] [id number] Univers 09:45:00 11:21:46 ity of [facility] 2021-07-30 2021-07-30 Outpatient BUD WHITMAN [facility] [id number] Univers 09:45:00 09:45:00 ity of [facility] 2021-07-30 2021-07-30 Orders Doctor OREILLY [id number] Univers 00:00:00 00:00:00 Only Unassigned, BRIAN [id number] ity of [place] [facility] 4.2.7.2.686 Kishore as [id number] [facility] 009 [place] 2021-04-02 2021-04-02 Telephone Izzy Ferrari [id number] Univers 00:00:00 00:00:00 BRIAN 350.1.13.10 it y of [facility] 4.2.7.2.686 Kishore as [id number] [facility] 019 [place] 2021-04-01 2021-04-01 Laboratory Only, Ang Db Test [facility] 1.2.8 40.114 [id number] Univers 09:45:00 10:00:00 Only Prosper Roberto HEALTH 350.1.13.10 ity of [place] 4.2.7.2.686 Kishore as SAMANTHA?BLEA [id number] [address] MEDICAL OFFICE BUILDING 2021-04-01 2021-04-01 Outpatient R PROSPER [facility] [id number] Univers 09:45:00 09:50:42 ROBERTO ity of [facility] 2021-04-01 2021-04-01 Letter Rojas Rivera [facility] 1.2.840.114 [id number] Univers 00:00:00 00:00:00 (Out) [place] HEALTH 350.1.13.10 i ty of [place] 4.2.7.2.686 Kishore as SAMANTHA?BLEA [id number] [address] MEDICAL OFFICE BUILDING 2020-12-23 2020-12-23 Emergency Aline [facility] [id number] Univers 14:55:00 18:35:00 Andi Garciaton 350.1.13.10 i [facility] 4.2.7.2.686 [facility] [id number] [facility] 084 Branch 2020-12-23 2020-12-23 Emergency X [facility] ERT [id number] Univers 14:46:00 14:46:00 ity of [facility] 2018-01-24 2018-01-24 Outpatient Efren LOMAX [facility] TYESHASONYA 10 [id number] [facility] 00:00:00 00:00:[address] [facility] 2017-11-16 2017-11-16 Out[facility] [id number] Common 16:35:00 16:35:00 [facility] 2017-11-15 2017-11-15 Outpatient [facility] [id number] Common 08:30:00 08:30:00 t [facility] 2017-11-02 2017-11-02 Out[facility] [id number] Common 09:30:00 09:30:00 t [facility] Results Test Description Test Time Test Comments Results Result Comments Source COMP. METABOLIC PANEL (32717) 2021-11-17 04:25:14 Test Item Value Reference Range Interpretation Comme nts NA (test code = 5381434534) 136 mmol/L 135-145 K (test code = 6049602970) 4.5 mmol/L 3.5-5 CL (test code = 9527013303) 106 mmol/L 98-108 CO2 TOTAL (test code = 5576157491) 27 mmol/L 23-31 AGAP (test code = 6645746825) 2-16 BUN (test code = 9426310955) 13 mg/dL 7-23 GLUCOSE (test code = 7265196596) 89 mg/dL 70-110 CREATININE (test code = 0.71 mg/dL 0.5-1.04 8243360517) TOTAL BILI (test code = 0.1-1.1 L 8830585914) CALCIUM (test code = 4065108352) 9.0 mg/dL 8.6-10.6 T PROTEIN (test code = 0030423899) 6.9 g/dL 6.3-8.2 ALBUMIN (test code = 2894989691) 4.3 g/dL 3.5-5 ALK PHOS (test code = 7255414421) 50 U/L 34-122 ALTv (test code = 1742-6) 14 U/L 5-35 AST(SGOT) (test code = 5904284216) 22 U/L 13-40 eGFR (test code = 4113624104) mL/min/1.73m2 AMMON (test code = AMMON) Association [...] tests). Lab Interpretation (test code = Abnormal 07602-7) [facility] WITH [id number] 03:49:59 Test Item Value Reference Range Interpretation Comments WBC (test code = See_Comment [Automated 0990-2) message] The sy stem which generated this [...] (test code = 51.3 fL 39-49.9 H 32065-5) RDW-CV (test code = 14.4 % 12-15.5 788-0) PLT (test code = See_Comment [Automated 777-3) message] The sy stem which generated this result transmitted reference range : 166 - 358 10*3/ ?L. The reference r nelida was not used to interpret this result as normal/abnormal . MPV (test code = 9.3 fL 9.5-12.9 L 35384-7) NRBC/100 WBC (test See_Comment [Automat ed code = 1667254529) message] The system which generated this result transmitted reference range : 0.0 - 10.0 /100 WBCs. The refer ence range was not u sed to interpret th is result as normal/abnormal . NRBC x10^3 (test code See_Comment [Auto mated = 9347625040) message] The s ystem which generated this result transmitted reference range : 10*3/?L. The reference range was not used to interpret this result as normal/abnormal . GRAN MAT (NEUT) % 45.9 % (test code = 770-8) IMM GRAN % (test code 0.40 % = 9252323517) LYMPH % (test code = 43.6 % 736-9) MONO % (test code = 6.8 % 5905-5) EOS % (test code = 1.8 % 713-8) BASO % (test code = 1.5 % 706-2) GRAN MAT x10^3(ANC) 2.48 10*3/uL 1.88-7.09 (test code = 2133148708) IMM GRAN x10^3 (test 0-0.06 code = 9281967571) LYMPH x10^3 (test code 2.36 10*3/uL 1.32-3.29 = 731-0) MONO x10^3 (test code 0.37 10*3/uL 0.33-0.92 = 742-7) EOS x10^3 (test code = 0.10 10*3/uL 0.03-0.39 711-2) BASO x10^3 (test code 0.08 10*3/uL 0.01-0.07 H = 704-7) Lab Interpretation Abnormal (test code = 97418-2) [facility] [id number] 16:02:00 Test Item Value Reference Range Interpretation Comments POCT PREG (test code = 1605) Negative On board controls acceptable with C Yes Line (test code = 3574) POCT PREG LOT # (test code = 3575) POCT PREG TEST DATE (test code = 3576) [facility] [id number] 16:02:00 Test Item Value Reference Range Interpretation Comments POCT PREG (test code = 1605) Negative On board controls acceptable with C Yes Line (test code = 3574) POCT PREG LOT # (test code = 3575) POCT PREG TEST DATE (test code = 3576) [facility]"
[2022-05-30 13:21] LABS: Hematocrit 33.7 % (36.0-45.0); Lymphocytes % 41.9 % (15.3-44.8); MCV 96.6 fL (80-100); MPV 7.4 fL (7.6-11.3); RBC Red Blood Cell Count 3.49 M/uL (3.86-4.86)
[2022-05-30 13:24] LABS: Urine Bacteria <20 /HPF (<20); Urine Mucus 4+ /HPF (None Seen); Urine RBC >50 /HPF (None Seen)
[2022-05-30 13:36] LABS: Potassium 3.7 mmol/L (3.5-5.1)
--- NOTE | 2022-05-30 14:10 | RAD REPORT ---
EXAM DESCRIPTION: CT - Stone Protocol - 05/30/2022 1:51 pm CLINICAL HISTORY: Abdominal pain, lower abdominal cramping. Vaginal bleeding COMPARISON: 07/25/2021. TECHNIQUE: CT imaging of the abdomen and pelvis was performed without IV contrast. Multiplanar refor mats were generated and reviewed. All CT scans are performed using dose optimization technique as appropriate and may include automated exposure control or mA/KV adjustment according to patient size. FINDINGS: No suspicious findings in the lung bases. The liver, spleen and pancreas show no suspicious findings. Sequelae of prior cholecystectomy, partial gastrectomy, and breast implants. No hydronephrosis or suspicious parenchymal masses within limits of noncontrast evaluation. Elongated 6 millimeter left renal mid pole calcific density is stable, could reflect a nonobstructing calculus or parenchymal calcification. No significant adrenal finding. Isodense masses and pyelonephritis ca nnot be excluded in the absence of IV contrast. No dilated bowel loops or bowel wall thickening. No free air, free fluid or inflammatory stranding. N o hernia, mass or bulky lymphadenopathy. Left adnexal hypoattenuating lesion has increased in density since the prior exam, now with internal CT density approximately 17 Hounsfield units, which may reflect internal hemorrhage. The lesion measu res 3.4 x 2.7 centimeter in greatest dimension, not significantly changed in size. The urinary bladde r is not well-distended, limiting evaluation. Well-circumscribed ovoid small told 6.7 centimeter mass within the right gluteus angelo, with environmental health and safety intern al foci of fat density, and an ovoid fat density 2.5 centimeter lesion within the left gluteus maximu s are stable, nonspecific. The right lesion may represent sequelae of an organized hematoma. No suspicious bony findings. IMPRESSION: Increased density of the left adnexal ovoid lesion, may reflect hemorrhagic changes okay left ovarian cyst. The lesion has not significantly changed in size. Please correlate with patient's symptoms. No other acute findings in the abdomen and pelvis. Stable incidental findings as above. Full assessment is limited is the absence of IV contrast.
--- NOTE | 2022-05-30 14:15 | RAD REPORT ---
EXAM DESCRIPTION: US - Pelvis Complete - 05/30/2022 1:40 pm CLINICAL HISTORY: pelvic pain, bleeding Last menstrual period 10 days ago COMPARISON: Pelvis dated 01/24/2022 FINDINGS: The uterus is anteverted, normal in size, shape and echotexture. The uterus measures 8.5 c entimeter in length. A thin-walled anechoic cyst is noted along the anterior wall lower segment measu ring 8 millimeter, nonspecific, but benign in appearance. The endometrial stripe measures 6 mm in thickness, normal. The right ovary is not visualized, with reported history of right oophorectomy. The right ovary measu res. The left ovary measures 4.5 x 3.1 x 3.4 centimeter. Left ovarian ovoid thin-walled cystic lesio n measuring 2.3 x 1.5 x 3.1 centimeter, with low-level echoes and thin septation within, possibly rep resenting a hemorrhagic cyst. No suspicious adnexal masses. Normal Doppler blood flow was demonstrated to the left ovary. No significant pelvic ascites. IMPRESSION: No acute abnormalities in the pelvis. Incidentally noted 3.1 centimeter mildly complex left ovarian cystic lesion, possibly a hemorrhagic c yst. Status post right oophorectomy.
[2022-05-30] MEDS ORDERED: KETOROLAC 30 MG/ML INJ ONE (14:48)
--- NOTE | 2022-05-30 14:57 | ER ---
Nurse's Notes [facility] caret Name: Leesa Stone Age: 32 yrs Sex: Female : 1990 Arrival Date: 05/30/2022 Time: 12:27 Bed 6 Private MD: Diagnosis: Other and unspecified ovarian cysts-Hemorrhagic;Abnormal uterine and vaginal bleeding, unspecified Presentation: 05/30 12:29 Chief complaint: Lower abdominal cramping, vaginal pain, and vaginal itching after hb unprotected sex 1 week ago, and vaginal bleeding with large clots x 3 days. Coronavirus screen: At this time, the client does not indicate any symptoms associated with coronavirus-19. Ebola Screen: No symptoms or risks identified at this time. Initial Sepsis Screen: Does the patient meet any 2 criteria? No. Patient's initial sepsis screen is negative. Does the patient have a suspected source of infection? No. Patient's initial sepsis screen is negative. Risk Assessment: Do you want to hurt yourself or someone else? Patient reports no desire to harm self or others. Onset of symptoms was May 23, 2022. 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 - Social history:: Smoking status: unknown. - Family history:: not pertinent. - Hospitalizations: : No recent hospitalization is reported. Screenin:00 [facility] ED Fall Risk Assessment (Adult) History of falling in the last 3 months, jl7 including since admission No falls in past 3 months (0 pts). Abuse screen: Denies threats or abuse. Denies injuries from another. Nutritional screening: No deficits noted. Tuberculosis screening: No symptoms or risk factors identified. Assessment: 12:48 Reassessment: Dr. Ashford at bedside assessing pt. jl7 13:00 General: Appears in no apparent distress. uncomfortable, Behavior is calm, cooperative, jl7 appropriate for age. Pain: Complains of pain in suprapubic area, right lower quadrant and left lower quadrant Pain currently is 7 out of 10 on a pain scale. Neuro: Level of Consciousness is awake, alert, obeys commands, Oriented to person, place, time, situation. Cardiovascular: Patient's skin is warm and dry. Respiratory: Airway is patent Respiratory effort is even, unlabored, Respiratory pattern is regular, symmetrical. : Urine is blood tinged, Reports vaginal bleeding that is bright red, with clots. 14:00 Reassessment: Patient appears in no apparent distress at this time. No changes from jl7 previously documented assessment. Patient and/or family updated on plan of care and expected duration. Pain level reassessed. Patient is alert, oriented x 3, equal unlabored respirations, skin warm/dry/pink. 14:46 Reassessment: Dr. Ashford at bedside discussing results and POC. jl7 Vital Signs: 12:29 BP 128 / 78; Pulse 92; Resp 16; Temp 97.7; Pulse Ox 100% on R/A; Weight 65.77 kg; hb Height 5 ft. 1 in. (154.94 cm); Pain 7/10; 15:13 BP 96 / 59; Pulse 90; Resp 15; Pulse Ox 97% ; Pain 5/10; jl7 12:29 Body Mass Index 27.40 (65.77 kg, 154.94 cm) hb ED Course: 12:27 Patient arrived in ED. rg4 12:28 Frank Ashford MD is Attending Physician. rn 12:33 Triage completed. hb 12:33 Arm band placed on. hb 12:39 Philippe Heller, LEVI is Primary Nurse. jl7 13:00 Patient has correct armband on for positive identification. jl7 13:07 Initial lab(s) drawn, by me, sent to lab. Urine collected: clean catch specimen, blood jl7 tinged. Inserted saline lock: 20 gauge in right antecubital area, using aseptic technique. Blood collected. 14:09 US Pelvis Complete In Process Unspecified. EDMS 14:09 CT Stone Protocol In Process Unspecified. EDMS 14:35 Basic Metabolic Panel Sent. jl7 14:35 CBC with Diff Sent. jl7 15:14 No provider procedures requiring assistance completed. IV discontinued, intact, jl7 bleeding controlled, No redness/swelling at site. Pressure dressing applied. Administered Medications: 14:47 Drug: Ketorolac 30 mg Route: IVP; Site: right antecubital; jl7 15:13 Follow up: Response: No adverse reaction; Pain is decreased jl7 Medication: 13:00 VIS not applicable for this client. jl7 Outcome: 14:57 Discharge ordered by . rn 15:14 Discharged to home ambulatory. jl7 15:14 Condition: stable 15:14 Discharge instructions given to patient, Instructed on discharge instructions, follow up and referral plans. medication usage, Demonstrated understanding of instructions, follow-up care, medications, Prescriptions given X 1. 15:14 Patient left the ED. jl7 Signatures: Dispatcher [employer] EDFrank Gaytan MD MD rn Baxter, Heather RN Yane Quinones 4 Philippe Heller RN LEVI jl7
--- NOTE | 2022-05-30 14:57 | EDPHYS ---
Physician Documentation [facility] Name: Leesa Stone Age: 32 yrs Sex: Female : 1990 Arrival Date: 05/30/2022 Time: 12:27 Bed 6 Private MD: ED Physician Frank Ashford HPI: 05/30 13:42 This 32 yrs old Female presents to ER via Ambulatory with complaints of Vaginal rn Bleeding, Vaginal Pain. 13:42 The patient presents with vaginal bleeding that is moderate. rn 13:42 Onset: The symptoms/episode began/occurred 3 day(s) ago. Modifying factors: The rn symptoms are alleviated by nothing, the symptoms are aggravated by nothing. Associated signs and symptoms: Pertinent positives: dysuria, Pertinent negatives: fever, vaginal discharge. Severity of symptoms: At their worst the symptoms were moderate, in the emergency department the symptoms are unchanged. The patient has not experienced similar symptoms in the past. The patient has been recently seen by a physician:. Pt reports had unprotected sex 1 week ago, had small cut and white vaginal discharge so seen by her STRATEGIC COMMUNICATIONS MANAGER, GC testing sent, and told by STRATEGIC COMMUNICATIONS MANAGER that is small tear. Was not bleeding at the time. Now bleeding for last 3 days, with clot. No sob. No blood thinners. No syncope. . 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 - Social history:: Smoking status: unknown. - Family history:: not pertinent. - Hospitalizations: : No recent hospitalization is reported. ROS: 13:42 Constitutional: Negative for fever, chills, and weight loss, Eyes: Negative for injury, rn pain, redness, and discharge, Neck: Negative for injury, pain, and swelling, Cardiovascular: Negative for chest pain, palpitations, and edema, Respiratory: Negative for shortness of breath, cough, wheezing, and pleuritic chest pain, Abdomen/GI: Negative for abdominal pain, nausea, vomiting, diarrhea, and constipation, Back: Negative for injury and pain, : + vaginal bleeding and pain MS/Extremity: Negative for injury and deformity, Skin: Negative for injury, rash, and discoloration, Neuro: Negative for headache, weakness, numbness, tingling, and seizure. Exam: 13:42 Constitutional: This is a well developed, well nourished patient who is awake, alert, rn and in no acute distress. Head/Face: Normocephalic, atraumatic. Cardiovascular: Regular rate and rhythm. No pulse deficits. Respiratory: No increased work of breathing, no retractions or nasal flaring. Abdomen/GI: soft, non-tender Skin: Warm, dry MS/ Extremity: Pulses equal, no cyanosis. Neuro: Awake and alert, GCS 15 Vital Signs: 12:29 BP 128 / 78; Pulse 92; Resp 16; Temp 97.7; Pulse Ox 100% on R/A; Weight 65.77 kg; hb Height 5 ft. 1 in. (154.94 cm); Pain 7/10; 15:13 BP 96 / 59; Pulse 90; Resp 15; Pulse Ox 97% ; Pain 5/10; jl7 12:29 Body Mass Index 27.40 (65.77 kg, 154.94 cm) hb MDM: 12:28 Patient medically screened. rn 14:55 Differential diagnosis: dysmenorrhea, endometriosis, menometrorrhagia, menorrhea, rn nonspecific abdominal pain, ovarian cyst, uterine fibroids, urinary tract infection. Data reviewed: vital signs, nurses notes, lab test result(s), radiologic studies, CT scan, and as a result, I will discharge patient. Counseling: I had a detailed discussion with the patient and/or guardian regarding: the historical points, exam findings, and any diagnostic results supporting the discharge/admit diagnosis, lab results, radiology results, the need for outpatient follow up, to return to the emergency department if symptoms worsen or persist or if there are any questions or concerns that arise at home. Response to treatment: the patient's symptoms have mildly improved after treatment, and as a result, I will discharge patient. Special discussion: I discussed with the patient/guardian in detail that at this point there is no indication for admission to the hospital. It is understood, however, that if the symptoms persist or worsen the patient needs to return immediately for re-evaluation. Based on the history and exam findings, there is no indication for further emergent testing or inpatient evaluation. I discussed with the patient/guardian the need to see the OB Gyne specialist for further evaluation of the symptoms. ED course: Hemoglobin 11.6, stable vitals, good ovarian blood flow, + hemorrhagic ovarian cyst. Seen already by STRATEGIC COMMUNICATIONS MANAGER who saw small cut, and has f/u appt with same STRATEGIC COMMUNICATIONS MANAGER tomorrow, no emergent finding to require admission or transfer at this time. . 05/30 12:51 Order name: Basic Metabolic Panel rn 05/30 12:51 Order name: CBC with Diff rn 05/30 13:21 Order name: CBC with Automated Diff [facility] 05/30 13:24 Order name: Urine Microscopic Only [facility] 05/30 13:37 Order name: Basic Metabolic Panel [facility] 05/30 12:51 Order name: US Pelvis Complete; Complete Time: 14:18 rn 05/30 12:51 Order name: IV Saline Lock; Complete Time: 13:07 rn 05/30 12:51 Order name: Labs collected and sent; Complete Time: 13:07 rn 05/30 12:51 Order name: CT Stone Protocol; Complete Time: 14:18 rn Administered Medications: 14:47 Drug: Ketorolac 30 mg Route: IVP; Site: right antecubital; jl7 15:13 Follow up: Response: No adverse reaction; Pain is decreased jl7 Disposition Summary: 05/30/22 14:57 Discharge Ordered Location: Home rn Problem: new rn Symptoms: have improved rn Condition: Stable rn Diagnosis - Other and unspecified ovarian cysts - Hemorrhagic rn - Abnormal uterine and vaginal bleeding, unspecified rn Followup: rn - With: Private Physician - When: Tomorrow - Reason: Recheck today's complaints, Re-evaluation by your physician Discharge Instructions: - Discharge Summary Sheet rn - Ovarian Cyst rn Forms: - Medication Reconciliation Form rn - Thank You Letter rn - Antibiotic media relations intern - Prescription Opioid Use rn Prescriptions: - Diclofenac Sodium 75 mg Oral Tablet Sustained Release - take 1 tablet by ORAL route 2 times per day; 30 tablet; Refills: 0, Product rn Selection Permitted Signatures: Dispatcher [employer] [facility] Frank Ashford MD MD rn Baxter, Heather, RN RN Philippe Heller RN RN jl7 Corrections: (The following items were deleted from the chart) 14:07 13:02 Urinalysis+U.LAB.BRZ ordered. EDMS EDMS
[2022-05-30 15:53] VITALS: TEMP 97.7
[2022-05-30 15:54] VITALS: BP 96/59; O2SAT 97
== END 2022-05-30 15:14 | disposition home or self-care (01) ==
LOC: ER 12:24
DX: N83.209 Unspecified ovarian cyst, unspecified side (principal); F90.9 Attention-deficit hyperactivity disorder, unspecified type; Z98.82 Breast implant status
CPT/HCPCS: 36415; 74176; 76377; 76856; 80048; 81015; 85025; 96374; 99284

== ENCOUNTER → 2023-05-04 | Emergency (ER) | payer BC ==
[~2023-05-04] MED LIST: LORazepam 2 MG/ML VIAL ONE; NA CHLORIDE 0.9% 1,000 ML ONE; ONDANSETRON 4 MG/2 ML VIAL ONE
--- OUTSIDE RECORDS SUMMARY | 2023-05-04 20:00 | XMS REPORT | Clinical Summary ---
Author Name Unknown Organization [facility] Address [address] [place] [address] Care Team Providers Care Shelf Stocker Name Role Phone Adriana Carter MD Primary Care Provider [phone] Rojas Rivera MD Unavailable [phone] Allergies Active Allergy Reactions Criticality Noted Date Comments Codeine Other (See Comments) 11/30/2022 Hydrocodone Other (See Comments),Nausea And Vomiting,GI Intolerance Low 02/10/2018 Nausea/ vomiting Hydrocodone-Acetaminop hen GI Intolerance 03/23/2017 Medications Medication Sig Dispensed Refills Start Date End Date Status escitalopram (LEXAPRO) 10 mg tablet Take 1 tablet (10 mg) by mouth daily. 0 09/23/2022 Active ALPRAZolam (XANAX) 1 mg tablet Take 1 tablet (1 mg) by mouth twice daily. 0 Active dextroamphetamine/amph etamine (ADDERALL XR ORAL) Take 20 mg by mouth daily. 0 Active traMADol (ULTRAM) 50 mg tablet Take 1 tablet (50 mg) by mouth. 0 10/17/2022 Active QUEtiapine (SEROquel) 400 mg tablet Take 1 tablet (400 mg) by mouth nightly as needed. 0 09/04/2020 Active cyanocobalamin, vitamin B-12, (Vitamin B-12) 1,000 mcg/mL drop Take by mouth. 0 Active Active Problems Problem Noted Date Diagnosed Date Chronic pelvic pain of female 12/04/2022 Abdominal or pelvic swelling , mass, or lump, left lower quadrant 11/30/2022 Last Assessment & Plan: 1. Dr. Carter has discussed the natural history of the disease and treatment options. 2. Patient will have routine new patient labs with HLA testing and repeat TVUS for further evaluation. 3. Patient will have a virtual visit with Dr. Carter on , 12/02/22 to review test results and treatment planning. 4. Patient was advised to call the clinic should she have any questions, concerns, or any new symptoms. She verbalized understanding of the instructions and the plan of care. Encounters Date Type Department Care Team Description 12/03/2022 10:51 AM CDT - 12/03/2022 11:59 PM CDT Hospital Encounter [facility] Denise Collins MD Discharge Disposition: Home 12/02/2022 2:00 PM CDT Telemedicine [facility] [address] [place] [address], 6th [place] [address] Adriana Carter MD Abdominal or pelvic swelling, mass, or lump, left lower quadrant 11/30/2022 1:30 PM CDT Ancillary Procedure General Ultrasound [address] [place] [address], 5th [place] [address] Stephanie Sutherland APRN Abdominal or pelvic swelling, mass, or lump, left lower quadrant 11/30/2022 10:51 AM CDT - 11/30/2022 11:59 PM CDT Hospital Encounter [facility] HLA [facility] Denise Collins MD Discharge Disposition: Home 11/30/2022 10:28 AM CDT - 11/30/2022 11:59 PM CDT Hospital Encounter [facility] [address] [place] [id number] Stephanie Sutherland APRN Abdominal or pelvic swelling, mass, or lump, left lower quadrant Discharge Disposition: Home 11/30/2022 8:30 AM CDT Office Visit [facility] [address] [place] [address], 6th [place] [address] Adriana Carter MD Abdominal or pelvic swelling, mass, or lump, left lower quadrant (Primary Dx); Chronic pelvic pain of female 11/30/2022 Travel 11/26/2022 8:30 AM CDT NPR MDA PATIENT ACCESS 11/26/2022 Travel 11/12/2022 11:00 PM CDT Ancillary Procedure Image Library [address] [place] [id number] Adriana Carter MD Cancer 11/12/2022 10:55 PM CDT Ancillary Procedure Image [facility] [address] [place] [id number] Adriana Carter MD Cancer 11/12/2022 10:50 PM CDT Ancillary Procedure [facility] [address] [place] [id number] Adriana Carter MD Cancer 11/12/2022 10:45 PM CDT Ancillary Procedure [facility] [address] [place] [id number] Adriana Carter MD Cancer 11/12/2022 10:40 PM CDT Ancillary Procedure Image [facility] [address] [place] [address] Adriana Carter MD Cancer 11/12/2022 10:35 PM CDT Ancillary Procedure Image [facility] [address] [place] [id number] Adriana Carter MD Cancer 11/12/2022 10:30 PM CDT Ancillary Procedure [facility] [address] [place] [address] Adriana Carter MD Cancer 11/12/2022 10:25 PM CDT Ancillary Procedure Image [facility] [address] [place] [id number] Adriana Carter MD Cancer 11/12/2022 10:20 PM CDT Ancillary Procedure Image [facility] [address] [place] [id number] Adriana Carter MD Cancer after 05/04/2022 Surgical History Surgery Date Site/Laterality Comments OOPHORECTOMY UNILATERAL 04/04/2020 - 04/03/2021 Right laparoscopic BREAST RECONSTRUCTION 04/04/2014 - 04/03/2015 Bilateral SECTION, LOW TRANSVERSE 04/04/2006 - 04/03/2007 SECTION, LOW TRANSVERSE 04/04/2004 - 04/03/2005 SECTION, LOW TRANSVERSE 04/04/2008 - 04/03/2009 SECTION, LOW TRANSVERSE 04/04/2007 - 04/03/2008 CHOLECYSTECTOMY 04/04/2012 - 04/03/2013 TUBAL LIGATION 03/05/2009 Bilateral Medical History Medical History Date Comments Chronic tonsillitis 02/2018 Pelvic pain 2020 Family History Medical History Relation Name Comments Melanoma Maternal Aunt Kidney cancer Maternal Grandfather Melanoma Maternal Grandfather Cervical cancer Maternal Great-Grandmother Basal cell carcinoma Mother Melanoma Mother Brain cancer Other 1 Maternal grand uncle Throat cancer Other 2 Maternal grand uncle Lung cancer Other 3 Maternal grand aunt Relation Name Status Comments Maternal Aunt Maternal Grandfather Maternal Great-Grandmother Mother Alive Other 1 Maternal grand uncle Other 2 Maternal grand uncle Other 3 Maternal grand aunt Social History Tobacco Use Types Packs/Day Years Used Date Smoking Tobacco: Never Smokeless Tobacco: Never Tobacco Cessation:Counseling Given: Not Answered Alcohol Use Standard Drinks/Week Comments Never 0 (1 standard drink = 0.6 oz pur e alcohol) Sex and Gender Information Value Date Recorded Sex Assigned at Not on file Gender Identity Not on file Sexual Orientation Not on file Job Start Date Occupation Industry Not on file Not on file Not on file Travel History Travel Start Travel End [facility] 10/26/2022 11/26/2022 Obstetrics History Para Term AB IAB SAB Ectopic Multiple Livin g Live Births 5 1 1 4 Date Outcome GA Total Labor Labor/2nd/3rd Weight Sex Delivery Anes PTL Cami A1 A5 Name Cl in SAB Comments with 1 miscarriage Menarche at age9 No hx of OCP use No known hx of abnormal pap smear No hx of STD/STI Last Filed Vital Signs Vital Sign Reading Time Taken Comments Blood Pressure 109/67 11/30/2022 8:44 AM CDT Pulse 75 11/30/2022 8:44 AM CDT Temperature 36.1 C (97 F) 11/30/2022 8:44 AM CDT Respiratory Rate 18 11/30/2022 8:44 AM CDT Oxygen Saturation 97% 11/30/2022 8:44 AM CDT Inhaled Oxygen Concentration - - Weight 65.5 kg (144 lb 6.4 oz) 11/30/2022 8:29 A M CDT Height 154 cm (5' 0.63") 11/30/2022 8:29 AM CDT Body Mass Index 27.62 11/30/2022 8:29 AM CDT Plan of Treatment Health Maintenance Due Date Last Done Comments COVID-19 Vaccination (#1) 1990 Procedures Procedure Name Priority Date/Time Associated Diagnosis Comments US TRANSVAGINAL Routine 11/30/2022 12:00 PM CDT Abdominal or pelvic swelling, mass, or lump, left lower quadrant DIFFERENTIAL Routine 11/30/2022 10:36 AM CDT Abdominal or pelvic swelling, mass, or lump, left lower quadrant .CBC Routine 11/30/2022 10:36 AM CDT Abdominal or pelvic swelling, mass, or lump, left lower quadrant .GLOMERULAR FILTRATION RATE Routine 11/30/2022 10:36 AM CDT Abdominal or pelvic swelling, mass, or lump, left lower quadrant SERUM CREATININE Routine 11/30/2022 10:3 6 AM CDT Abdominal or pelvic swelling, mass, or lump, left lower quadrant BHCG Routine 11/30/2022 10:36 AM CDT Abdominal or pelvic swelling, mass, or lump, left lower quadrant HLA PATIENT COLLECTION ONLY HLA PATIENT Routine 11/30/2022 10:36 AM CDT Abdominal or pelvic swelling, mass, or lump, left lower quadrant CANCER ANTIGEN 125 Routine 11/30/2022 10 :36 AM CDT Abdominal or pelvic swelling, mass, or lump, left lower quadrant ALBUMIN LEVEL Routine 11/30/2022 10:36 AM CDT Abdominal or pelvic swelling, mass, or lump, left lower quadrant COMPLETE BLOOD COUNT W/ DIFFERENTIAL Routine 11/30/2022 10:36 AM CDT Abdominal or pelvic swelling, mass, or lump, left lower quadrant MAGNESIUM LEVEL Routine 11/30/2022 10:36 AM CDT Abdominal or pelvic swelling, mass, or lump, left lower quadrant ELECTROLYTE PANEL Routine 11/30/2022 10: 36 AM CDT Abdominal or pelvic swelling, mass, or lump, left lower quadrant ASPARTATE AMINOTRANSFERASE Routine 11/30/2022 10:36 AM CDT Abdominal or pelvic swelling, mass, or lump, left lower quadrant ALANINE AMINOTRANSFERASE Routine 023 10:36 AM CDT Abdominal or pelvic swelling, mass, or lump, left lower quadrant FRACTIONATED BILIRUBIN Routine 10:36 AM CDT Abdominal or pelvic swelling, mass, or lump, left lower quadrant CREATININE Routine 11/30/2022 10:36 AM CDT Abdominal or pelvic swelling, mass, or lump, left lower quadrant BLOOD UREA NITROGEN Routine 11/30/2022 1 0:36 AM CDT Abdominal or pelvic swelling, mass, or lump, left lower quadrant GLUCOSE, RANDOM Routine 11/30/2022 10:36 AM CDT Abdominal or pelvic swelling, mass, or lump, left lower quadrant HEMOGLOBIN A1C Routine 11/30/2022 10:36 AM CDT Abdominal or pelvic swelling, mass, or lump, left lower quadrant HIV 1/2 ANTIGEN/ANTIBODY, FOURTH GEN W/RFL Routine 11/30/2022 10:36 AM CDT Abdominal or pelvic swelling, mass, or lump, left lower quadrant HEPATITIS B SURFACE ANTIGEN Routine 11/30/2022 10:36 AM CDT Abdominal or pelvic swelling, mass, or lump, left lower quadrant HEPATITIS C VIRUS ANTIBODY Routine 11/30/2022 10:36 AM CDT Abdominal or pelvic swelling, mass, or lump, left lower quadrant CYTOLOGY HPV 16/18 GENOTYPING AND HIGH RISK POOL Routine 11/30/2022 9:56 AM CDT Abdominal or pelvic swelling, mass, or lump, left lower quadrant CYTOLOGY EXPLORATION DRILLER INTERPRETATION Routine 11/30/2022 9:56 AM CDT Abdominal or pelvic swelling, mass, or lump, left lower quadrant OSI US PELVIC Routine 10/17/2022 11:12 PM CDT Cancer OSI CT ABDOMEN AND PELVIS Routine 10/17/2022 11:11 PM CDT Cancer after 05/04/2022 Results * US Transvaginal (11/30/2022 12:00 PM CDT) Anatomical Region Laterality Modality Pelvis Ultrasound 11/30/2022 1:04 PM CDT Impressions 11/30/2022 2:09 PM CDT 1. Normal sonographic appearance of the left ovary with multiple follicles. No suspicious adnexal masses. 2. Patient reports history of right salpingo-oophorectomy. A 1.6 cm nonspecific cyst in the right adnexa also seen on prior CT, may represent remnant ovarian cyst, paraovarian cyst or seroma. ACTIONABLE ITEMS/RECOMMENDATIONS: None. I personally reviewed these image(s) along with the resident's/fellow's interpretations, certify that if a procedure was performed I was physically present, and agree with the final report. Narrative 11/30/2022 2:09 PM CDT Examination: US TRANSVAGINAL on 11/30/2022 12:00 PM. Clinical History: Abdominal or pelvic swelling, mass, or lump, left lower quadrant. Indication: Mass in UT, OV, Adnexa. Comparison: Outside ultrasound pelvis and CT abdomen/pelvis 10/17/2022. TECHNIQUE: Transvaginal grayscale and color Doppler ultrasound of the pelvis was performed. FINDINGS: Uterus: The uterus measures 7.5 x 4.0 x 3.9 cm. Incidentally noted nabothian cysts. Normal echogenicity of the myometrium. Endometrium: 4 mm in thickness. No abnormal masses or vascularity. Left Ovary: 3.4 x 2.2 x 2.6 cm with a total volume of 9.8 mL. Previously seen cysts are no longer visualized. Normal sonographic appearance of the left ovary with multiple follicles. No suspicious adnexal masses. Right Ovary: Patient reports history of right salpingo-ophrectomy. There is a cystic structure in the right adnexa corresponding to finding on CT measuring up to 1.6 cm. Fluid: Trace, within physiologic limits. Procedure Note Sofia Nunn MD - 11/30/2022 Examination: US TRANSVAGINAL on 11/30/2022 12:00 PM. Clinical History: Abdominal or pelvic swelling, mass, or lump, left lowerquadrant. Indication: Mass in UT, OV, Adnexa. Comparison: Outside ultrasound pelvis and CT abdomen/pelvis 10/17/2022. TECHNIQUE: Transvaginal grayscale and color Doppler ultrasound of thepelvis was performed. FINDINGS: Uterus: The uterus measures 7.5 x 4.0 x 3.9 cm. Incidentally notednabothian cysts. Normal echogenicity of the myometrium. Endometrium: 4 mm in thickness. No abnormal masses or vascularity. Left Ovary: 3.4 x 2.2 x 2.6 cm with a total volume of 9.8 mL. Previouslyseen cysts are no longer visualized. Normal sonographic appearance of theleft ovary with multiple follicles. No suspicious adnexal masses. Right Ovary: Patient reports history of right salpingo-ophrectomy. Thereis a cystic structure in the right adnexa corresponding to finding on CTmeasuring up to 1.6 cm. Fluid: Trace, within physiologic limits. IMPRESSION: 1. Normal sonographic appearance of the left ovary with multiplefollicles. No suspicious adnexal masses. 2. Patient reports history of right salpingo-oophorectomy. A 1.6 cmnonspecific cyst in the right adnexa also seen on prior CT, may representremnant ovarian cyst, paraovarian cyst or seroma. ACTIONABLE ITEMS/RECOMMENDATIONS: None. I personally reviewed these image(s) along with the resident's/fellow'sinterpretations, certify that if a procedure was performed I wasphysically present, and agree with the final report. Stephanie Sutherland APRN IMG US ORDERABLES * Glucose, Random (11/30/2022 10:36 AM CDT) Glucose Random 92 70 - 199 mg/dL [facility] Comment: Effective 10/29/15, the glucose reference intervals have been updated based on [place] Diabetes [employer] guidelines (Standards of Medical Care in Diabetes 2016. Diabetes Care 2016; 39: S13-S22) Fasting blood glucose: Normal: 70-99 mg/dL Impaired fasting glucose (increased risk for diabetes or pre-diabetes): 100-125 mg/dL Diabetes mellitus: >/= 126 mg/dL Random blood glucose: Normal: 70-199 mg/dL Note: Random glucose >100 mg/dL is associated with increased risk for diabetes Testing Performed at [facility] Lab Human Resource Advisor [facility], [address] [place] [address], [address], [place] [address] Blood 11/30/2022 10:3 6 AM CDT 11/30/2022 10:48 AM CDT Stephanie Sutherland APRN LAB BLOOD ORDERAB LES [address] [place] [address] * HIV 1/2 Antigen/Antibody, Fourth Gen W/RFL (11/30/2022 10:36 AM CDT) HIV Ag/Ab, 4TH Gen NON-REACT PAULINA NON-REACT PAULINA [facility] Comment: HIV-1 antigen and HIV-1/HIV-2 antibodies were not detected. There is no laboratory evidence of HIV infection. PLEASE NOTE: This information has been disclosed to you from records whose confidentiality may be protected by state law. If your state requires such protection, then the state law prohibits you from making any further disclosure of the information without the specific written consent of the person to whom it pertains, or as otherwise permitted by law. A general authorization for the release of medical or other information is NOT sufficient for this purpose. For additional information please refer to http://education.Icecreamlabs.Somewhere/faq/ZHU839 (This link is being provided for informational/ educational purposes only.) The performance of this assay has not been clinically validated in patients less than 2 years old. Lab test performed by: Lab Mnemonic: [facility] [address] [id number] DAVID LYONS MD,PHD. Blood 11/30/2022 10:3 6 AM CDT 11/30/2022 11:31 AM CDT Stephanie Friendmalou BENNETT LAB BLOOD ORDERAB LES [facility] * .Serum Creatinine (11/30/2022 10:36 AM CDT) [facility] Creatinine 0.91 0.51 - 0.95 mg/dL [facility] Comment:Testing Performed at [facility], [address] [place] [address], [address], [place] [address] Blood 11/30/2022 10:3 6 AM CDT 11/30/2022 10:48 AM CDT Stephanie Mahesh Kokomic CALLAHANN LAB BLOOD ORDERAB LES Performing Organization Address [facility]/ZIP Co de Phone Number [address] [place] [address] * (ABNORMAL) .CBC (11/30/2022 10:36 AM CDT) Pathologist [facility] WBC 6.9 4.1 - 10.5 K/uL [facility] RBC 3.22(L) 3.99 - 5.46 M/uL [facility] Hgb 10.9(L) 12.2 - 15.3 gm/dL [facility] Comment:As part of CBC or as an individual orderable testing performed at [facility], [address] [place] [address], [address], [place] [address] Hct 33.4(L) 36.4 - 46.8 % [facility] Comment:As part of CBC or as an individual orderable testing performed at [facility], [address] [place] [address], [address], [place] [address] MCV 104(H) 82 - 99 fL [facility] MCH 33.9(H) 26.6 - 33.2 pg [facility] MCHC 32.6 31.1 - 35.2 gm/dL [facility] RDW-SD 58.0(H) 37.5 - 49.7 fL [facility] RDW-CV 15.3 11.6 - 15.5 % [facility] Platelet count 326 160 - 397 K/uL [facility] Comment:As part of CBC or as an individual orderable testing performed at [facility], [address] [place] [address], [address], [place] [address] MPV 9.2 9.1 - 12.6 fL [facility] INRBC 0.0 0.0 - 0.1 /100 WBC [facility] Comment: The INRBC (instrument NRBC) value reflects the enumeration of nucleated red blood cells contained in a 200uL sample of whole blood analyzed by the instrument. This value may differ from the NRBC value reported in a manual differential, which is based on a 100 cell differential. As part of CBC testing performed at [address], [address], [place] [address] Blood 11/30/2022 10:3 6 AM CDT 11/30/2022 10:39 AM CDT Stephanie Sutherland APRN LAB BLOOD ORDERAB LES [address] [place] [address] * Glomerular Filtration Rate (11/30/2022 10:36 AM CDT) eGFR 85 >=60 mL/min/1.7 3 sq. m [facility] Comment: The eGFRcr is calculated with the 2020 CKD-EPI creatinine equation using creatinine, patient's age, and sex for adults 18 years of age and older. Other factors, especially muscle mass, may affect accuracy and need to be considered. According to the Kidney Disease: Improving Global Outcomes (KDIGO) CKD Work Group 2012 Clinical Practice Guideline, chronic kidney disease (CKD) is defined as the abnormalities of kidney structure or function, present for more than 3 months, with implications for health. CKD should be classified by cause, GFR category, and albuminuria category. KDIGO guidelines provide the following GFR categories Stage Description GFR mL/min/1.73 m2 G1* Normal or high >= 90 G2* Mildly decreased 60-89 G3a Mildly to moderately decreased 45-59 G3b Moderately to severely decreased 30-44 G4 Severely decreased 15-29 G5 Kidney failure <15 *In the absence of evidence of kidney damage, neither G1 nor G2 fulfill criteria for CKD. Testing Performed at [facility], [address] [place] [address], [address], [place] [address] Blood 11/30/2022 10:3 6 AM CDT 11/30/2022 10:48 AM CDT Stephanie Sutherland APRN LAB BLOOD ORDERAB LES Performing Organization Address [facility] Co de Phone Number [address] [place] [address] * Fractionated Bilirubin (11/30/2022 10:36 AM CDT) Bili Total <0.3 <=1.2 mg/dL [facility] Comment: Direct and indirect bilirubin will not be reported when Total bilirubin result is <0.3 mg/dL Indocyanine Green (ICG) may cause falsely elevated bilirubin results. Total and direct bilirubin must not be measured from samples containing indocyanine green. False elevation of total bilirubin can be seen in patients with IgG concentrations above 28 g/L. Testing Performed at [facility], [address] [place] [address], [address], [place] [address] Blood 11/30/2022 10:3 6 AM CDT 11/30/2022 10:48 AM CDT Stephanie Sutherland APRN LAB BLOOD ORDERAB LES Performing Organization Address City/[facility]/ZIP Co de Phone Number [address] [place] [address] * HLA Patient Collection Only (11/30/2022 10:36 AM CDT) Specimen Received Yes [facility] Blood 11/30/2022 10:3 6 AM CDT 11/30/2022 1:08 PM CDT Narrative [facility] - 11/30/2022 2:51 PM CDT Is this a stem cell transplant patient?->No What loci do you need typed?->High resolution A Stephanie Sutherland APRN HLA TYPING LAB OR DERABLES Performing Organization Address City/[facility] Co de Phone Number [facility] Unless otherwise noted, all lab tests performed by: Division of Pathology and Laboratory Medicine [address] [place] [id number] * Hepatitis C Virus AB Screen W/Reflex HCV PCR (11/30/2022 10:36 AM CDT) [facility] HCVAb. Non Reactive Non Reactive [facility] Comment: Antibody detection in the immunocompromised and immunosuppressed population may be delayed or absent entirely. Therefore serial testing, correlation with other clinical findings, and supplemental testing (if available) should be taken into consideration when interpreting the results. Blood 11/30/2022 10:3 6 AM CDT 11/30/2022 11:36 AM CDT Stephanie Sutherland APRN LAB BLOOD ORDERAB LES Performing Organization Address [facility] Co de Phone Number [facility] Unless otherwise noted, all lab tests performed by: Division of Pathology and Laboratory Medicine [address] [place] [id number] * Differential (11/30/2022 10:36 AM CDT) [facility] Neutrophil % 64.3 43.2 - 72.7 % [facility] Comment:As part of Different ial performed at [facility] Lab Human Resource Advisor [facility], [facility], [address], [place] [address] Lymphocyte % 26.7 16.8 - 46.2 % [facility] Monocyte % 6.5 5.1 - 12.5 % [facility] Eosinophil % 1.2 0.4 - 6.3 % [facility] Basophil % 1.0 0.2 - 1.4 % [facility] IGRE % 0.3 0.1 - 1.5 % [facility] Comment: IGRE % count includes Metamyelocytes, Myelocytes, and Promyelocytes. As part of Differential performed at [facility] Lab Human Resource Advisor [address], [address] [place] [address], [address], [place] [address] Neutrophil Abs 4.45 1.95 - 7.25 K/uL [facility] Lymphocyte Abs 1.85 1.01 - 3.24 K/uL [facility] Monocyte Abs 0.45 0.24 - 0.85 K/uL [facility] Eosinophil Abs 0.08 0.02 - 0.50 K/uL [facility] Basophil Abs 0.07 0.02 - 0.09 K/uL [facility] IG Abs 0.02 0.01 - 0.12 K/uL [facility] Blood 11/30/2022 10:3 6 AM CDT 11/30/2022 10:39 AM CDT Stephanie Sutherland APRN LAB BLOOD ORDERAB LES [facility] [address] [facility] [place] [address] * Hepatitis B Surface Ag (11/30/2022 10:36 AM CDT) Pathologist [facility] HBsAg. Non Reactive Non Reactive [facility] Blood 11/30/2022 10:3 6 AM CDT 11/30/2022 11:36 AM CDT Stephanie Sutherland APRN LAB BLOOD ORDERAB LES [facility] Unless otherwise noted, all lab tests performed by: Division of Pathology and Laboratory Medicine [address] [place] [id number] * CA 125 (11/30/2022 10:36 AM CDT) Pathologist [facility] CA 125 6.9 <=38.0 U/mL [facility] Comment: Results greater than 11,500.0 U/mL may not be reliable due to matrix effect with extended dilution as it exceeds the viner operator's recommended limit. Caution should be exercised when interpreting such values and done in conjunction with clinical context. Reference intervals are not available for male patients. Results should be interpreted in conjunction with clinical context. This test is measured by electrochemiluminescence immunoassay on N[employer] Charles immunoassay analyzers. Results obtained in different methods are not interchangeable. Testing Performed at [facility], [address] [place] [address], [address], [place] [address] Blood 11/30/2022 10:3 6 AM CDT 11/30/2022 10:48 AM CDT Stephanie Sutherland APRN LAB BLOOD ORDERAB LES Performing Organization Address [facility]/ZIP Co de Phone Number [address] [place] [address] * BHCG (11/30/2022 10:36 AM CDT) Beta HCG, <1.7 <=4.9 mIU/mL [facility] Comment: [facility] [place] Values: Negative: <5 mIU/mL Indeterminate: 5-25 mIU/mL Positive: >25 mIU/mL Values between 5 and 25 mIU/mL are indeterminate for . Consider confirming with repeat test in 72 hours. Values in should double every 3 days for the first 6 weeks. Testing Performed at [facility], [address] [place] [address], [address], [place] [address] Blood 11/30/2022 10:3 6 AM CDT 11/30/2022 10:48 AM CDT Stephanie Sutherland APRN LAB BLOOD ORDERAB LES [address] [place] [address] * BUN (11/30/2022 10:36 AM CDT) BUN 16 6 - 23 mg/dL [facility] Comment:Testing Performed at [facility], [address] [place] [address], [address], [place] [address] Blood 11/30/2022 10:3 6 AM CDT 11/30/2022 10:48 AM CDT Stephanie Sutherland SERVICE LOSS CONTROL CONSULTANT LAB BLOOD ORDERAB LES [facility] [address] [facility] [place] [address] * ALT (11/30/2022 10:36 AM CDT) ALT 7 <=33 U/L [facility] Comment:Testing Performed at [facility] Lab Human Resource Advisor [facility], [address], [address], [place] [address] Blood 11/30/2022 10:3 6 AM CDT 11/30/2022 10:48 AM CDT Stephanie Sutherland SERVICE LOSS CONTROL CONSULTANT LAB BLOOD ORDERAB LES Performing Organization Address [facility]/ZIP Co de Phone Number [facility] [address] [place] [address]. [address] [place] [address] * Aspartate Aminotransferase (11/30/2022 10:36 AM CDT) AST 15 <=32 U/L [facility] Comment:Testing Performed at [facility] Lab Human Resource Advisor [facility], [address] [facility] [address], [address], [place] [address] Blood 11/30/2022 10:3 6 AM CDT 11/30/2022 10:48 AM CDT Stephanie Sutherland SERVICE LOSS CONTROL CONSULTANT LAB BLOOD ORDERAB LES [facility] [address] [place] [address]. [address] [place] [address] * Magnesium Level (11/30/2022 10:36 AM CDT) Magnesium 2.3 1.6 - 2.6 mg/dL [facility] Comment:Testing Performed at [facility] Lab Human Resource Advisor [facility], [facility] [facility], [address], [place] [address] Blood 11/30/2022 10:3 6 AM CDT 11/30/2022 10:48 AM CDT Stephanie Sutherland APRN LAB BLOOD ORDERAB LES Performing Organization Address City/[facility]/ZIP Co de Phone Number [address] [place] [address] * Hemoglobin A1c (11/30/2022 10:36 AM CDT) A1C 4.6 4.3 - 5.6 % [facility] Comment: HbA1c values >=6.5% are diagnostic of diabetes mellitus. Diagnosis should be confirmed by repeat testing. Therapeutic Action suggested: >8.0% HbA1c; Goal of therapy: <7.0% HbA1c Blood 11/30/2022 10:3 6 AM CDT 11/30/2022 11:06 AM CDT Stephanie Sutherland APRN LAB BLOOD ORDERAB LES Performing Organization Address [facility] Co de Phone Number [facility] Unless otherwise noted, all lab tests performed by: Division of Pathology and Laboratory Medicine [address] [place] [id number] * Albumin Level (11/30/2022 10:36 AM CDT) Albumin Lvl 4.3 3.5 - 5.2 gm/dL [facility] Comment:Testing Performed at [facility] Lab Human Resource Advisor [facility], [address] [place] [address], [address], [place] [address] Blood 11/30/2022 10:3 6 AM CDT 11/30/2022 10:48 AM CDT Stephanie Sutherland APRN LAB BLOOD ORDERAB LES Performing Organization Address City/[facility]/ZIP Co de Phone Number [address] [place] [address] * (ABNORMAL) Electrolyte Panel (11/30/2022 10:36 AM CDT) Sodium Lvl 142 136 - 145 mEq/L [facility] Comment:Testing Performed at [facility] Lab Human Resource Advisor [facility], [address] [facility], [address], [place] [address] Potassium Lvl 4.6 3.5 - 5.1 mEq/L [facility] Comment:Testing Performed at [facility] Lab Human Resource Advisor [facility], [address], [place] [address] Chloride 108(H) 98 - 107 mEq/L [facility] Comment:Testing Performed at [facility] Lab Human Resource Advisor [facility], [address] [facility], [address], [place] [address] CO2 26 22 - 29 mEq/L [facility] Comment:Testing Performed at [facility] Lab Human Resource Advisor [facility], [address] [facility], [address], [place] [address] Anion Gap 8 4 - 14 mEq/L [facility] Comment:Testing Performed at [facility] Lab Human Resource Advisor [facility], [address], [place] [address] Blood 11/30/2022 10:3 6 AM CDT 11/30/2022 10:48 AM CDT Stephanie Sutherland APRN LAB BLOOD ORDERAB LES [facility] [address] [facility] [place] [address] * Cytology HPV 16/18 Genotyping and High Risk Pool (11/30/2022 9:56 AM CDT) HPV Type 16 Negative Negative, Indetermi francis, Invalid 12/02/2022 3:20 PM CDT [facility] HPV Type 18 Negative Negative, Indetermi francis, Invalid 12/02/2022 3:20 PM CDT [facility] HPV High Risk Non-16/18 Negative Negative, Indetermi francis, Invalid 12/02/2022 3:20 PM CDT [facility] Informational Points The charles HPV Test ([facility], [place], [place]) is a qualitative in vitro diagnostic test for the detection of Human Papillomavirus in cervical specimens collected in [employer]. The test utilizes amplification of target DNA by the Polymerase Chain Reaction (PCR) and nucleic acid hybridization for the detection of 14 high-risk (HR) HPV types in a single analysis. The test specifically identifies types HPV16 and HPV18 while concurrently detecting the other high risk types (31, 33, 35, 39, 45, 51, 52, 56, 58, 59, 66, and 68). The performance characteristics of this test were validated and determined by the [facility] cytology laboratory. These validation analyses have confirmed the accurate performance of the assay of the viner operator s stated limit of detection for the target of the test in various specimen types. The [facility] cytology laboratory is authorized under Clinical Laboratory Improvement Amendments (CLIA) to perform high-complexity testing. The [facility] Department of Pathology is accredited by the [employer] [place] (CAP). 12/02/2022 3:20 PM CDT [facility] Swab (specimen) (Cervix, ThinPrep, Liquid Based Preparation) 11/30/2022 9:56 AM CDT 11/30/2022 12:59 PM CDT Stephanie Sutherland APRN LAB CYTOLOGY BRUNO CONDE Performing Organization Address City/State/[facility] Co de Phone Number [facility] [address], * Cytology EXPLORATION DRILLER Interpretation (11/30/2022 9:56 AM CDT) Gross Description 1 ThinPrep vial received 12/03/2022 10:44 AM CDT [facility] Specimen Information Cervix, Pap smear: 12/03/2022 10:44 AM CDT [facility] Specimen Adequacy Satisfactory for evaluation 12/03/2022 10:44 AM CDT [facility] TZ/Endocervical Endocervical/cruz sformation zone component absent 12/03/2022 10:44 AM CDT [facility] Diagnosis Negative for intraepithelial lesion or malignancy 12/03/2022 10:44 AM CDT [facility] 11/25/2022 12/03/2022 10:44 AM CDT [facility] HPV Reflex for Barrel Repairer Yes 12/03/2022 10:44 AM CDT [facility] Informational Points Cervicovaginal cytology is a screening procedure subject to false negatives and false positives. Results are more reliable when a satisfactory sample is obtained on a regular repetitive basis and should be interpreted together with past and current clinical data. Some tests reported here may have been developed and performance characteristics determined by [facility] Pathology and Laboratory Medicine. These tests have not been specifically cleared or approved by the U.S. Food and Drug Administration. 12/03/2022 10:44 AM CDT [facility] Swab (specimen) (Cervix, ThinPrep, Liquid Based Preparation) 11/30/2022 9:56 AM CDT 11/30/2022 12:59 PM CDT Stephanie Sutherland APRN LAB CYTOLOGY BRUNO CONDE [facility] [place] [address], [place] * OSI US Pelvic (10/17/2022 11:12 PM CDT) Narrative Systemgenerated, Documentation - 11/12/2022 11:12 PM CDT Study acquired at another institution. For comparison only. No [facility] originated interpretation requested or available. Adriana Carter MD IMG OUTSIDE IMAGE OR DERABLES * OSI CT Abdomen and Pelvis (10/17/2022 11:11 PM CDT) Narrative Systemgenerated, Documentation - 11/12/2022 11:11 PM CDT Study acquired at another institution. For comparison only. No [facility] originated interpretation requested or available. Adriana Carter MD IMG OUTSIDE IMAGE OR DERABLES after 05/04/2022 Care Teams Shelf Stocker Relationship Specialty Start Date End Date Adriana Carter MD [address] [place] [address] PCP - General Gynecological Oncology 11/26/22 Rojas Rivera MD [address] [place] [id number] PCP - External Primary Care Provider Family Practice 11/26/22
[2023-05-04 20:45] LABS: Absolute Lymphocytes (CBC) 0.9 K/uL (0.7-4.9); Hematocrit 33.8 % (36.0-45.0); Lymphocytes % 18.7 % (15.3-44.8); MCV 99.4 fL (80-100); MPV 7.3 fL (7.6-11.3); Platelets 372 thou/uL (152-406)
[2023-05-04 20:48] LABS: Protime INR 0.92
[2023-05-04 21:07] LABS: ALT/SGPT 18 U/L (13-56); AST/SGOT 11 U/L (15-37); Albumin 3.7 g/dL (3.4-5.0); Alkaline Phosphatase 42 U/L (45-117); BUN Blood Urea Nitrogen 8 mg/dL (7-18); Bicarbonate 22 mEq/L (21-32); Bilirubin Direct 0.1 mg/dL (0-0.2); Bilirubin Indirect, Calculated 0.2 mg/dL (0.2-0.8); Bilirubin Total 0.3 mg/dL (0.2-1.0); Glomerular Filtration Rate 111 ml/min (=/>90); Glucose Level 100 mg/dL (74-106); Potassium 3.6 mEq/L (3.5-5.1); Protein, Total 7.4 g/dL (6.4-8.2); Sodium Level 145 mEq/L (136-145)
[2023-05-04 21:58] LABS: Barbiturates NEGATIVE (NEGATIVE); Benzodiazepines POSITIVE (NEGATIVE); Cocaine NEGATIVE (NEGATIVE); METHAMPHETAM NEGATIVE (NEGATIVE); Methadone NEGATIVE (NEGATIVE); Opiates NEGATIVE (NEGATIVE); Phencyclidine NEGATIVE (NEGATIVE); Specific Gravity 1.013 (1.005-1.030); THC Cannibis POSITIVE (NEGATIVE); Urine Bacteria <20 /HPF (<20); Urine Bilirubin 1+ (Negative); Urine Blood 3+ (OVER) (Negative); Urine Clarity Turbid (Clear); Urine Color Light-Yellow (Yellow); Urine Glucose NEGATIVE (Negative); Urine Mucus Slight /HPF (None Seen); Urine Protein NEGATIVE (Negative); Urine Urobilinogen Normal (Normal); Urine pH 5.5 (5.0-7.0)
--- NOTE | 2023-05-05 00:40 | ER ---
Nurse's Notes [facility] Name: Leesa Stone Age: 32 yrs Sex: Female : 1990 Arrival Date: 05/04/2023 Time: 19:57 Bed 16 Private MD: Diagnosis: Alcohol abuse with intoxication, uncomplicated;Personal upset, alcohol intoxication Presentation: 05/04 20:02 Chief complaint: Per Officer Mahesh with [employer] patient's called stating the me1 patient keeps telling him that she wants to kill herself. Patient picked up a knife off her plate and was making a stabbing motion on counter top while saying she wants to kill herself. Patient is intoxicated. Patient also told Officer Mahesh that she wanted to kill herself several times on the ride here. CONG on chart. Coronavirus screen: Vaccine status: Patient reports receiving the 2nd dose of the covid vaccine. Ebola Screen: No symptoms or risks identified at this time. Initial Sepsis Screen: Does the patient meet any 2 criteria? No. Patient's initial sepsis screen is negative. Does the patient have a suspected source of infection? No. Patient's initial sepsis screen is negative. Risk Assessment: Do you want to hurt yourself or someone else? Patient reports desire/thoughts of hurting themselves or someone else. Provider notified. Onset of symptoms was May 04, 2023. 20:02 Method Of Arrival: Law Enforcement: [facility] me1 20:02 Acuity: JAVIER 2 me1 Triage Assessment: 20:06 General: Appears distressed, well groomed, well developed, well nourished, Behavior is me1 calm, cooperative, appropriate for age, Reports Per Officer Mahesh with [employer] patient's called stating the patient keeps telling him that she wants to kill herself. Patient picked up a knife off her plate and was making a stabbing motion on counter top while saying she wants to kill herself. Patient is intoxicated. Patient also told Officer Mahesh that she wanted to kill herself several times on the ride here. Pain: Denies pain. Neuro: Level of Consciousness is awake, alert, obeys commands, Oriented to person, place, time, situation, Appropriate for age. Cardiovascular: Capillary refill < 3 seconds Patient's skin is warm and dry. Respiratory: Airway is patent Trachea midline Respiratory effort is even, unlabored, Respiratory pattern is regular, symmetrical. INVENTORY CONTROL ASSOCIATE: 20:02 LMP 05/01/2023, unknown me1 Historical: - Allergies: 20:06 No Known Allergies; me1 - Home Meds: 20:06 Alprazolam Oral [Active]; Adderall XR 20 mg Oral cp24 [Active]; Seroquel Oral [Active]; me1 - PMHx: 20:06 ADD/ADHD; Anxiety; insomnia; me1 - PSHx: 20:06 breast augmentation; BTL; section; Ligation of fallopian tube; Ovary removed; me1 Tummy tuck; - Immunization history:: Adult Immunizations up to date. - Social history:: Smoking status: Patient denies any tobacco usage or history of. Screenin:02 [facility] ED Fall Risk Assessment (Adult) History of falling in the last 3 months, me1 including since admission No falls in past 3 months (0 pts) Confusion or Disorientation No (0 pts) Intoxicated or Sedated Yes (3 pts) Impaired Gait No (0 pts) Mobility Assist Device Used No (0 pt) Altered Elimination No (0 pt) Score/Fall Risk Level 0 - 2 = Low Risk Maintained a safe environment, Provided non-skid footwear, Hourly rounding (assess needs \\T\\ fall precautionary measures) done. Abuse screen: Denies threats or abuse. Nutritional screening: No deficits noted. Tuberculosis screening: No symptoms or risk factors identified. Assessment: 20:02 General: Appears distressed, well groomed, well developed, well nourished, Behavior is me1 appropriate for age, agitated, anxious, crying, restless, uncooperative, Reports Per Officer Mahesh with [employer] patient's called stating the patient keeps telling him that she wants to kill herself. Patient picked up a knife off her plate and was making a stabbing motion on counter top while saying she wants to kill herself. Patient is intoxicated. Patient also told Officer Mahesh that she wanted to kill herself several times on the ride here. CONG on chart. Pain: Denies pain. Neuro: Level of Consciousness is awake, alert, obeys commands, Oriented to person, place, time, situation, Appropriate for age. Cardiovascular: Capillary refill < 3 seconds Patient's skin is warm and dry. Respiratory: Airway is patent Trachea midline Respiratory effort is even, unlabored, Respiratory pattern is regular, symmetrical. 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 . 22:00 General: Received Report from LEVI Woods. . jw7 22:00 General: Appears in no apparent distress. comfortable, Behavior is agitated, anxious, jw7 restless, uncooperative. Pain: Denies pain. Neuro: Level of Consciousness is awake, alert, obeys commands, Oriented to person, place, time, situation. Cardiovascular: Capillary refill < 3 seconds Patient's skin is warm and dry. Respiratory: Airway is patent Trachea midline Respiratory effort is even, unlabored, Respiratory pattern is regular, symmetrical. GI: No deficits noted. No signs and/or symptoms were reported involving the gastrointestinal system. : No deficits noted. No signs and/or symptoms were reported regarding the genitourinary system. EENT: No deficits noted. No signs and/or symptoms were reported regarding the EENT system. Derm: Skin is intact, is healthy with good turgor, Skin is dry, Skin is normal, Skin temperature is warm. Musculoskeletal: Circulation, motion, and sensation intact. Range of motion: intact in all extremities. 22:13 Reassessment: Patient appears in no apparent distress at this time. Patient and/or jw7 family updated on plan of care and expected duration. Pain level reassessed. Patient is alert, oriented x 3, equal unlabored respirations, skin warm/dry/pink. 23:15 General: patient c/o nausea and vomiting, Provider notified. jw7 23:36 Reassessment: Patient appears in no apparent distress at this time. Patient and/or jw7 family updated on plan of care and expected duration. Pain level reassessed. Patient is alert, oriented x 3, equal unlabored respirations, skin warm/dry/pink. 05/05 00:35 Reassessment: Patient appears in no apparent distress at this time. Patient and/or jw7 family updated on plan of care and expected duration. Pain level reassessed. Patient is alert, oriented x 3, equal unlabored respirations, skin warm/dry/pink. Psych: 05/04 21:24 [place] Suicide Severity Screening: In the past month, have you wished you were me1 or wished you could go to sleep and not wake up? Patient responds "No." "In the past month, have you actually had any thoughts of killing yourself?" Patient responds "no." Per Officer Mahesh with [employer] patient's called stating the patient keeps telling him that she wants to kill herself. Patient picked up a knife off her plate and was making a stabbing motion on counter top while saying she wants to kill herself. Patient is intoxicated. Patient also told Officer Mahesh that she wanted to kill herself several times on the ride here. CONG on chart. Per assessment once patient was in ER she denies any suicidal ideation. "In your lifetime, have you ever done anything, started to do anything, or prepared to do anything to end your life?" Patient responds "no.". 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 Objective: Patient is uncooperative, defensive, restless, Speech is normal, Affect is appropriate. Interventions: Removed personal items and placed in bag. Patient placed in hospital gown. Searched person for dangerous items. Urine collected and sent for urine drug test. Belonging list filled out. Safety Checks: Personal items have been removed. Door is open. No visitors are present at this time. Pt denies substance abuse smells like alcohol. Commitment: CONG on chart. Vital Signs: 20:02 Pulse 137; Resp 22; Temp 98.3(O); Pulse Ox 100% on R/A; Weight 68.04 kg; Height 5 ft. 1 me1 in. ; 20:02 BP 102 / 76; me1 23:00 BP 114 / 62; Pulse 79; Resp 18 S; Pulse Ox 98% on R/A; jw7 05/05 01:04 BP 109 / 74; Pulse 78; Resp 16 S; Pulse Ox 98% on R/A; jw7 05/04 20:02 Body Mass Index 28.34 (68.04 kg, 154.94 cm) ms1 ED Course: 05/04 20:01 Patient arrived in ED. kb 20:01 Clarita Carroll FNP-C is [facility]. kb 20:01 Yuri Matthew MD is Attending Physician. kb 20:02 Peggy Cueto, LEVI is Primary Nurse. me1 20:02 Patient has correct armband on for positive identification. Bed in low position. Call me1 light in reach. Side rails up X2. Provided Education on: POC. Verbalized understanding. . 20:02 No provider procedures requiring assistance completed. me1 20:06 Triage completed. me1 20:06 Arm band placed on Patient placed in an exam room. me1 20:26 Called [employer] per provider because the Pt requested to speak to officer regarding her wm kristofer well being. 20:36 Attending Physician role handed off by Yuri Matthew MD sp4 20:36 James Do MD is Attending Physician. sp4 20:46 Inserted saline lock: 20 gauge in right antecubital area, using aseptic technique. oe Blood collected. 20:49 Acetaminophen Sent. oe 20:49 Basic Metabolic Panel Sent. oe 20:49 ETOH Level Sent. oe 20:49 Hepatic Function Sent. oe 20:49 Salicylate Sent. oe 21:53 IV discontinued, intact, bleeding controlled, No redness/swelling at site. Pressure me1 dressing applied. 05/05 00:37 Stephen Egan MD is Referral Physician. sp4 Administered Medications: 05/04 21:16 Drug: NS 0.9% IV 1000 ml IV at 1000 ml once Route: IV; Rate: 1000 ml; Site: right me1 antecubital; 22:04 Follow up: IV Status: Completed infusion me1 21:16 Drug: Ativan IVP 1 mg IVP once Route: IVP; Site: right antecubital; me1 22:04 Follow up: Response: No adverse reaction; Anxiety decreased me1 23:35 Drug: Ondansetron IVP 4 mg IVP once; over 2 minutes Route: IVP; Site: right antecubital;jw7 05/05 00:58 Follow up: Response: No adverse reaction km8 Medication: 05/04 20:02 VIS not applicable for this client. me1 Outcome: 05/05 00:40 Discharge ordered by . sp4 01:05 Discharged to home ambulatory, jw7 01:05 Condition: stable 01:05 Discharge instructions given to patient, Instructed on discharge instructions, follow up and referral plans. Demonstrated understanding of instructions, follow-up care, 01:08 Patient left the ED. jw7 Signatures: Clarita Carroll, COMMUNITY RELATIONS COORDINATOR-C COMMUNITY RELATIONS COORDINATOR-Ckb Lonnie Gonzales Wendy wm Waits, Jodi, RN RN jw7 James Do MD MD sp4 Peggy Cueto RN RN ms1 Kellie Pham RN RN km8 Corrections: (The following items were deleted from the chart) 05/04 20:51 20:02 Chief complaint: Per Officer Aragon with [employer] patient's called stating me1 the patient keeps telling him that she wants to kill herself. Patient picked up a knife off her plate and was making a stabbing motion on counter top while saying she wants to kill herself. Patient is intoxicated. Patient also told Officer Mahesh that she wanted to kill herself several times on the ride here. me1 21:20 20:02 Chief complaint: Per Officer Aragon with [employer] patient's called stating me1 the patient keeps telling him that she wants to kill herself. Patient picked up a knife off her plate and was making a stabbing motion on counter top while saying she wants to kill herself. Patient is intoxicated. Patient also told Officer Mahesh that she wanted to kill herself several times on the ride here. CONG on chart. me1 22:25 21:00 Reassessment: Patient appears in no apparent distress at this time. Patient jw7 and/or family updated on plan of care and expected duration. Pain level reassessed. Patient is alert, oriented x 3, equal unlabored respirations, skin warm/dry/pink. jw7 23:36 22:50 General: patient c/o nausea and vomiting, Provider notified. jw7 jw7
--- NOTE | 2023-05-05 00:40 | EDPHYS ---
Physician Documentation [facility] Name: Leesa Stone Age: 32 yrs Sex: Female : 1990 Arrival Date: 05/04/2023 Time: 19:57 Bed 16 Private MD: ED Physician James Do HPI: 05/04 23:21 This 32 yrs old Female presents to ER via [employer] with complaints of Psych kb Problem. 23:21 Patient is a 32-year-old female who is brought in by PD for intoxication and suicidal kb ideations. PD was called by because patient was saying she was going to kill herself. PD reports patient told them multiple times that she wanted to . Patient now denying suicidal ideations when asked.. ZIGZAG APPLIQUER: 20:02 LMP 05/01/2023, unknown me1 Historical: - Allergies: 20:06 No Known Allergies; me1 - Home Meds: 20:06 Alprazolam Oral [Active]; Adderall XR 20 mg Oral cp24 [Active]; Seroquel Oral [Active]; me1 - PMHx: 20:06 ADD/ADHD; Anxiety; insomnia; me1 - PSHx: 20:06 breast augmentation; BTL; section; Ligation of fallopian tube; Ovary removed; me1 Leeann waters; - Immunization history:: Adult Immunizations up to date. - Social history:: Smoking status: Patient denies any tobacco usage or history of. ROS: 22:04 Constitutional: Negative for fever, chills, and weight loss, kb 22:04 Psych: Positive for alcohol dependence, suicidal ideation, 22:04 All other systems are negative, Exam: 22:04 Constitutional: This is a well developed, well nourished patient who is awake, alert, kb and in no acute distress. Head/Face: Normocephalic, atraumatic. ENT: Moist Mucous membranes Cardiovascular: Regular rate Respiratory: Respirations even and unlabored. No increased work of breathing. Talking in full sentences Skin: Warm, dry with normal turgor. Normal color. MS/ Extremity: Pulses equal, no cyanosis. Neurovascular intact. Full, normal range of motion. Neuro: Awake and alert, GCS 15, oriented to person, place, time, and situation. Moves all extremities. Normal gait. 22:04 Psych: Behavior/mood is anxious, Affect is animated, Oriented to person, place, time, Vital Signs: 20:02 Pulse 137; Resp 22; Temp 98.3(O); Pulse Ox 100% on R/A; Weight 68.04 kg; Height 5 ft. 1 me1 in. ; 20:02 BP 102 / 76; me1 23:00 BP 114 / 62; Pulse 79; Resp 18 S; Pulse Ox 98% on R/A; jw7 05/05 01:04 BP 109 / 74; Pulse 78; Resp 16 S; Pulse Ox 98% on R/A; jw7 05/04 20:02 Body Mass Index 28.34 (68.04 kg, 154.94 cm) vt1 MDM: 05/04 20:01 Patient medically screened. kb 22:05 Differential diagnosis: depression, Alcohol intoxication, suicidal ideations, acute kb stress reaction. Data reviewed: vital signs, nurses notes. 05/05 00:22 Transition of care: After a detail discussion of the patient's case, care is kb transferred to James Do MD. 00:41 Consideration of Admission/Observation Escalation of care including sp4 admission/observation considered. ED course: Patient was evaluated by me and she is clinically sober. Patient states she would like to go home at this time. She denies suicidal homicidal ideation. Patient states that when she consumes alcohol she becomes stressed out and she says things that she does not mean to say. Patient at this time again denied homicidal or suicidal ideation or plan. She is stable for discharge home. There is no cause to pursue psychiatric admission at this time. . 05/04 20:01 Order name: Acetaminophen; Complete Time: 21:13 kb 05/04 20:01 Order name: Basic Metabolic Panel; Complete Time: 21:13 kb 05/04 20:01 Order name: CBC with Diff; Complete Time: 20:57 kb 05/04 20: Order name: ETOH Level; Complete Time: 21:32 kb 05/04 20:01 Order name: Hepatic Function; Complete Time: 21:13 kb 05/04 20:01 Order name: PT-INR; Complete Time: 20:57 kb 05/04 20:01 Order name: Test, Urine; Complete Time: 22:01 kb 05/04 20:01 Order name: Ptt, Activated; Complete Time: 20:57 kb 05/04 20:01 Order name: Salicylate; Complete Time: 21:56 kb 05/04 20:01 Order name: Urinalysis w/ reflexes; Complete Time: 22:01 kb 05/04 20:01 Order name: Urine Drug Screen; Complete Time: 22:01 kb 05/05 00:21 Order name: ETOH Level kb 05/04 20:01 Order name: EKG; Complete Time: 20:02 kb 05/04 20:01 Order name: EKG - Nurse/Tech; Complete Time: 21:46 kb 05/04 20:01 Order name: IV Saline Lock; Complete Time: 21:46 kb 05/04 20:01 Order name: Labs collected and sent; Complete Time: 21:46 kb 05/04 20:01 Order name: Suicide Precautions; Complete Time: 22:11 kb 05/04 20:01 Order name: Suicide Screening (Parkman); Complete Time: 22:11 kb Administered Medications: 05/04 21:16 Drug: NS 0.9% IV 1000 ml IV at 1000 ml once Route: IV; Rate: 1000 ml; Site: right me1 antecubital; 22:04 Follow up: IV Status: Completed infusion me1 21:16 Drug: Ativan IVP 1 mg IVP once Route: IVP; Site: right antecubital; me1 22:04 Follow up: Response: No adverse reaction; Anxiety decreased me1 23:35 Drug: Ondansetron IVP 4 mg IVP once; over 2 minutes Route: IVP; Site: right antecubital;jw7 05/05 00:58 Follow up: Response: No adverse reaction [id number] Disposition: 05/04 23:55 Co-signature as Attending Physician, James Do MD I agree with the assessment sp4 and plan of care. I reviewed the patient's care provided by Advanced Practice Provider \T\ agree w/ the diagnosis \T\ care plan. I personally saw the pt \T\ performed a substantive portion of the visit, incldng all aspects of the (History/Exam/Medical Decision Making). Disposition Summary: 05/05/23 00:40 Discharge Ordered Notes: We recommend to abstain from alcohol consumption Location: Home sp4 Problem: new sp4 Symptoms: have improved sp4 Condition: Stable sp4 Diagnosis - Alcohol abuse with intoxication, uncomplicated sp4 - Personal upset, alcohol intoxication sp4 Followup: sp4 - With: Stephen Egan MD - When: 7 - 10 days - Reason: Recheck today's complaints Discharge Instructions: - Discharge Summary Sheet sp4 - Alcohol Intoxication sp4 Forms: - Patient Portal Instructions sp4 Signatures: Dispatcher [employer] EDClarita Hemphill, RIVERA BLENDING COORDINATOR-Kelle Chambers RN RN jw7 James Do MD MD sp4 Peggy Cueto RN RN me1 Kellie Pham RN [id number]
[2023-05-05 01:50] VITALS: BP 109/74; TEMP 98.3; O2SAT 98
--- NOTE | 2023-05-05 13:22 | EKG ---
Test Date: 2023-05-04 Test Time: 20:55:01 Manager Paper: STEPHANY MEASUREMENT RESULTS: Intervals: Rate: 100 FL: 156 QRSD: 74 QT: 342 QTc: 441 [place]: P: 21 FL: 156 QRS: -3 T: 56 INTERPRETIVE STATEMENTS: Normal sinus rhythm Left axis deviation Low voltage QRS Compared to ECG 07/14/2022 09:04:49 Left-axis deviation now present Electronically Signed On 05-05-23 13:21:25 [employer] by Ronald Lezama
== END ==
LOC: ER 19:57
DX: R45.7 State of emotional shock and stress, unspecified (principal); F10.220 Alcohol dependence with intoxication, uncomplicated; Z98.82 Breast implant status
CPT/HCPCS: 36415; 80048; 80076; 80143; 80179; 80307; 81001; 81025; 82077; 85025; 85610; 85730; 93005; J2405; J7030